=== PATIENT | male | born 1940 | race Caucasian/White ===

== ENCOUNTER → 2016-05-22 | Outpatient (CLI) | payer OTHER | LOC: BHFA 13:00 | PROVIDERS: ATTEND Internal Medicine Cardiovascular Disease | DX: L97.821 Non-pressure chronic ulcer of other part of left lower leg limited to breakdown of skin (principal) ==

== ENCOUNTER 2016-10-10 11:30 | Inpatient (IN) | payer OTHER ==
[2016-10-10] MEDS ORDERED: ACETAMINOPHEN 325 MG TAB PO PRN (12:07)
[2016-10-10] MEDS ORDERED: PROMETHAZINE HCL 25 MG/ML INJ IVP PRN (12:07)
[2016-10-10] MEDS ORDERED: ONDANSETRON 4 MG/2 ML VIAL IVP PRN (12:07)
[2016-10-10] MEDS ORDERED: HYDROmorphONE/DILAUDID 1 MG/ML SYR IVP PRN (12:07)
[2016-10-10] MEDS ORDERED: ONDANSETRON DISINTEGRATING 4 MG TAB PO PRN (12:07)
[2016-10-10] MEDS ORDERED: D5W 1/2 NS W/ 20 KCl/L 1,000 ML IV SCH (12:15)
--- NOTE | 2016-10-10 12:23 | PDGENHP ---
History and Physical - Chief Complaint Bilateral lower extremity cellulitis, left 2nd toe infection - History of Present Illness 68-year-old male well-known to me as I have been following him for lower extremity issues for some time. Briefly originally saw the patient about 10 months ago where he had an ulcer on the lateral portion of his left ankle. At that time he underwent skin grafting which was unsuccessful. I eventually get the wound to heal using long-term compression and Unna boot stockings. He then re-presented to my clinic approximately 2 weeks ago with some worsening cellulitis both of his lower extremities and a infection in his left 2nd toe. At that point time, I provided wound care and oral antibiotics to the patient here in the office any made some progress. I saw him last week in the toe looks about the same in the cellulitis had improved. Today in the clinic, he returns stating that the left 2nd toe is worse, the cellulitis is about the same. He denies having any systemic complaints including fevers or chills but does complain of significant bilateral lower extremity pain left greater than right. The pain is sharp, nonradiating, worse with pressure i.e. walking and better when he elevates both extremities. He states that it has also been difficult for him to ambulate given the pain and swelling in both of the extremities. His accompanies him today and states that he has had multiple episodes over the last week where he has fallen likely secondary to the fact that he has poor proprioception and issues with weight-bearing. History Information - Allergies/Home Medication List Allergies/Adverse Reactions: amoxicillin trihydrate [From Augmentin] Allergy (Intermediate, Verified 12:07) Itching guaifenesin [From Mucinex] Allergy (Intermediate, Verified 10/10/16 12:07) Vomiting potassium clavulanate [From Augmentin] Allergy (Intermediate, Verified 10/10/16 12:07) Itching Home Medications: Albuterol Hfa Anes Only [Proair Hfa Icu (*)] 2 puffs IH DAILY PRN 10/27/15 [ Last Taken 11/17/14] Alendronate Sodium [Fosamax 70 MG (*)] 70 mg PO PRYOR@0700 10/27/15 [Last Taken 02/01] Aspirin [Aspirin 81mg (*)] 81 mg PO DAILY 10/27/15 [Last Taken 11/30/15] Ergocalciferol [Vitamin D2 (*)] 50,000 unit PO PRYOR@0700 10/27/15 [Last Taken 02/01] Gabapentin [Neurontin 300 MG (*)] 600 mg PO TID 10/27/15 [Last Taken 12/02/15] Hydrochlorothiazide [HCTZ (*)] 12.5 mg PO DAILY 10/27/15 [Last Taken 12/02/15] Niacin ER [Niaspan 500 mg (*)] 500 mg PO HS 10/27/15 [Last Taken 11/30/15] [place]-3 Fatty Acids [Fish Oil 1000 mg (*)] 1,000 mg PO DAILY 10/27/15 [Last Taken 11/30/15] Ranitidine HCl [Zantac] 150 mg PO BID 10/27/15 [Last Taken 12/02/15 pepcid 20mg] Tamsulosin HCl [Flomax 0.4 MG (*)] 0.4 mg PO BID 10/27/15 [Last Taken 12/02/15] Terazosin HCl [Hytrin 2 MG (*)] 2 mg PO DAILY 10/27/15 [Last Taken 12/02/15] Venlafaxine Xr [Effexor Xr 75MG (*)] 150 mg PO DAILY 10/27/15 [Last Taken ] Verapamil ER [Calan SR/ER 120MG (*)] 120 mg PO DAILY 10/27/15 [Last Taken 12/01] I have personally reviewed and updated: family history, medical history, social history, surgical history - Past Medical History COPD Additional medical history: Chronic hypoxemic respiratory failure, vasculopath status post stenting - Surgical History Additional surgical history: Skin graft to the left lower extremity approximately 1 year ago which was unsuccessful - Social History Smoking Status: Current some day smoker Alcohol Use: None Drug Use: None Additional social history: Lives in [place] with his continues to smoke Review of Systems ROS: 10pt was reviewed & negative except for what was stated in HPI & below Physical Exam Constitutional: no apparent distress, appears nourished, not in pain Eyes: PERRL, anicteric sclera, EOMI Ears, Nose, Mouth, Throat: moist mucous membranes, hearing normal, ears appear normal, no oral mucosal ulcers Cardiovascular: regular rate and rhythym, no murmur, rub, or gallop, No edema Respiratory: no respiratory distress, no rales or rhonchi, clear to auscultation Gastrointestinal: normoactive bowel sounds, soft, non-tender abdomen, no palpable masses Skin: other (Bilateral lower extremity cellulitis, right greater than left. There is a small weeping portion on the dorsum of the right foot, there is also significant erythema and open portion on the left 2nd toe which is exquisitely tender both extremities are swollen right greater than left.) Musculoskeletal: no muscle tenderness, normal joint ROM Neurologic: AAOx3, sensation intact bilaterally, No weakness Psychiatric: interacting appropriately, not anxious, not encephalopathic, thought process linear Lymph, Heme, Immunologic: no cervical LAD, no supraclavicular LAD Assessment & Plan Assessment: 68-year-old male with bilateral lower extremity cellulitis and significant left 2nd toe infection, question osteomyelitis Plan: Given the fact that the patient has been on oral antibiotics for at least a week in the provide aggression of the infection seems to be increasing I will plan to admit him to the hospital for IV antibiotics and more intensive treatment. Given the appearance of the tone in the clinic today I am concerned that there is an underlying infection likely into the bone. I will plan to obtain further imaging including an MRI of that left foot to look for any further pathology. I have asked both the Medicine service and Infectious Disease services to consult and assist with care as the patient has underlying medical comorbidities which I feel are likely poorly managed on an outpatient basis by the patient and his . Anticipate that he will be here receiving IV antibiotics, if the toe fails to progress or gets worse I discussed with him that he may require an operation to remove it and possibly some additional portion of his forefoot if he should have infection in that area as well. All questions were answered, will plan to re-evaluate the patient later today.
--- NOTE | 2016-10-10 13:03 | WOCRNPDOC ---
WOCRN Advanced Assessment Note - Skin Integrity Problem, Advanced Assess Left Second Toe Dressing Type: Open to Air Exudate Amount: None Arlyn Wound Tissue: Erythema, Swollen, Hemosiderin Staining (mild ), Shiny, Taught, Xerotic, Hair Loss, Painful/Tender Arlyn Wound Swelling: Moderate Wound Bed Color: Yellow Wound Bed Constitution: Adhered Slough (100%) Site Measurement - Head-to-Toe Length X Width X Depth (cm): 1x1.2xslough. Proximal to wound on dorsal phalanx is a second wound which is also 100% slough in the shape of a t. this measures 1.2x1.2xslough. Skin Integrity Problem Comment: Will initiate autolytic debridement with iodosorb which will also address biofilm formation and bacterial load. Uncertain if patient has had RICHA. Negative stemmers sign. Patient denies intermittent claudation but states that he does complain of leg pain from time to time however this may be related to neuropathy. Right Lower Lateral Leg Scab Dressing Type: Open to Air Exudate Amount: None Wound Bed Constitution: Scab Site Measurement - Head-to-Toe Length X Width X Depth (cm): [id number] Skin Integrity Problem Comment: Appears to be a healing venous stasis ulcer. Right Dorsal Foot Dressing Type: Open to Air Exudate Amount: None Wound Bed Constitution: Loose Slough Site Measurement - Head-to-Toe Length X Width X Depth (cm): 2.5x1.8x0.1 Skin Integrity Problem Comment: Thin layer of slough that may expose a shallow open wound. Will initiate autolytic debridement. Wound care will round again at the end of the week.
[2016-10-10 15:12] LABS: % IMMATURE GRANULYOCYTES 0.3 % (0.0-1.1); ABSOLUTE IMMATURE GRANULOCYTES 0.02 10^3/uL (0.00-0.10); ADD DIFF? NO; ADD MORPH? NO; ADD SCAN? NO; ATYPICAL LYMPHOCYTE FLAG 10 (0-99); FRAGMENT RBC FLAG 0 (0-99); HEMATOCRIT 37.8 % (40.0-51.0); LEFT SHIFT FLG 0 (0-99); LIPEMIA HEMOLYSIS FLAG 80 (0-99); MEAN CELL HEMOGLOBIN 30.6 pg (27.9-34.1); MEAN CELL HEMOGLOBIN CONCENTR. 31.7 g/dL (32.4-36.7); MEAN CELL VOLUME 96.4 fL (81.5-99.8); MEAN PLATELET VOLUME 9.6 fL (8.7-11.7); PLATELET CLUMPS FLAG 10 (0-99); PLATELET COUNT 274 10^3/uL (150-400); RED BLOOD CELL COUNT 3.92 10^6/uL (4.40-6.38); RED CELL DISTRIBUTION WIDTH 14.8 % (11.5-15.2)
--- NOTE | 2016-10-10 15:13 | GCON ---
[f rep st] CONSULTATION INFECTIOUS DISEASE CONSULTATION DATE OF CONSULTATION: 10/10/2016 REFERRING PHYSICIAN: Kurt Newsome MD REASON FOR CONSULTATION: Bilateral lower extremity cellulitis with chronic wounds with possible ost eo. CHIEF COMPLAINT: Pain and redness involving both feet with chronic wounds. 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 Apparently, his history dates back to a year ago when he had a chronic nonhealing left lateral leg wound that required skin grafting, which finally healed. Apparently 2 weeks ago, he had worsen ing redness of both of his lower extremities and chronic wounds involving both his left 2nd toe and his right foot. He was placed on Bactrim orally as an outpatient in 1 week, and one later on there was some improvement in the cellulitis but ongoing issues regarding the wound. He continued on Bact rim, and this week when he was seen in followup he apparently had worsening redness of both of his f eet and increasing pain involving both his feet, as well. Patient denies fevers or shaking chills o maylin the past 2-3 weeks. He has had more pain with weightbearing and has had ongoing drainage from b oth the wounds involving his feet. Due to that, he was directly admitted to the hospital. There ar e no labs that are available at present. He had been wearing closed shoes during the start of this. After the wounds broke open and the redness developed in his bilateral feet, he did cut the tops o f his shoes off. REVIEW OF SYSTEMS: GENERAL: Denied any fever or shaking chills. HEAD: No headaches. EYES: No c hange in vision. ENT: No sore throat, difficulty swallowing, ear pain, or ear drainage. He is mckay ntulous and wears dentures. CARDIOVASCULAR: Denies any chest pain or rapid heart beat. RESPIRATOR Y: He denies any shortness of breath, cough, or sputum production. ABDOMEN: No nausea, vomiting, or abdominal pain. He does have chronic loose stools that he has had for over 10 years. He states he has about 2 bowel movements a day, nonbloody. : Denies any dysuria or hematuria. BACK: Wilton es any increasing back pain other than his baseline. MUSCULOSKELETAL: Denies any other joint pains or muscle aches. SKIN: As above. Rest of 10-point review of systems essentially negative except for above. PAST MEDICAL HISTORY: Significant for hypertension, COPD, coronary artery disease, dyslipidemia, pe ripheral arterial disease. 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 PAST SURGICAL HISTORY: Significant for angioplasty, aortic iliac endograft, L4-L5 spinal fusion, bi lateral total hip arthroplasties, CEA, left rotator cuff surgery, and recent skin grafting to the le ft lateral leg. SOCIAL HISTORY: He currently smokes a pack and a half over a day and a half. He does not drink any alcohol. He is . He is retired from the . He has had no recent immersion of his f oot in hot tubs or Jacuzzis or fresh water such as prince, streams, or lakes. FAMILY HISTORY: Significant for lung disease in his father. MEDICATIONS: As per MAY. PHYSICAL EXAMINATION: VITAL SIGNS: Temperature current 36.8, pulse is 66, respiratory rate is 20, blood pressure 152/81, saturation 94% on room air. GENERAL: Patient is resting in bed, in no acute respiratory distress. Awake, alert, and oriented x3. HEENT: Eyes without conjunctival injection. No petechiae noted. Oropharynx: He is edentulous. No oropharyngeal erythema or thrush noted. C ARDIOVASCULAR: S1, S2. Regular rate and rhythm. RESPIRATORY: Clear to auscultate bilaterally. N o rhonchi or rales appreciated. ABDOMEN: Positive bowel sounds in all 4 quadrants. Soft, nontende r, nondistended. No obvious organomegaly appreciated. EXTREMITIES: Lower extremity edema, particu larly right leg and right foot greater than left. He has some chronic venous stasis dermatitis mann ges noted, although these are mild bilaterally. SKIN: He has erythema predominantly present over t he left foot and left 2nd toe with a chronic wound over the dorsum of the 2nd toe extending into the dorsum of the foot. Mostly, it is dried up overlying slough, although there are some mild secretio ns that can be expressed very minimally, mostly serous at this point. He is excruciatingly tender t o palpation, especially over the dorsum of the foot and as you creep to the 2nd toe. No pain on pal pation of the plantar surface of that foot. Right foot with mild erythema over the dorsum of the fo ot with a chronic wound mostly again just slough dried up in nature. Again, pretty exquisitely tend er on palpation near this wound site. His feet are warm to touch bilaterally. LABORATORY DATA: No labs available. No cultures at this point. ASSESSMENT: 1. Bilateral feet cellulitic changes with chronic wounds to both feet and left 2nd toe, left foot g reater than right. 2. Tenia pedis bilaterally. PLAN: At this point in time, will start with basic labs, CBC, CMP, CRP, blood cultures x2 sets. I agree with an MRI. Would include both feet to evaluate further, especially given the tenderness and pain that he is having involving both feet. Evaluate for underlying abscess collections or osteomy elitis like changes. Will start broad-spectrum antimicrobials given the above presentation. No fou l-smelling chronic wounds with cellulitic component. Will start vancomycin and cefepime for now. W ill add antifungal topical therapy in between the web spaces, as well. Await MRI to further direct plan of care and additional intervention as necessary. Care discussed and coordinated with the surg ical team. Plan of care was discussed with the patient and the at the bedside. Thank you very much for the opportunity to care for your patient in consultation. /[id number]/MODL
[2016-10-10 15:35] LABS: ALANINE AMINOTRANSFERASE 24 IU/L (21-72); ALBUMIN 3.8 g/dL (3.5-5.0); ALKALINE PHOSPHATASE 94 IU/L (38-126); ANION GAP 11 mEq/L (8-16); ASPARTATE AMINOTRANSFERASE 20 IU/L (17-59); BILIRUBIN,TOTAL 0.4 mg/dL (0.1-1.4); BILIRUBIN-CONJUGATED 0.3 mg/dL (0.0-0.5); BILIRUBIN-UNCONJUGATED 0.1 mg/dL (0.0-1.1); C-REACTIVE PROTEIN 17.1 mg/L (<10.0); CALCIUM 9.1 mg/dL (8.5-10.4); CARBON DIOXIDE 22 mEq/l (22-31); CHLORIDE 112 mEq/L (97-110); CREATININE 1.2 mg/dL (0.7-1.3); GLOMERULAR FILTRATION RATE 59; GLUCOSE 86 mg/dL (70-100); POTASSIUM 4.3 mEq/L (3.5-5.2); SODIUM 145 mEq/L (134-144); TOTAL PROTEIN 6.6 g/dL (6.3-8.2)
[2016-10-10] MEDS: VANCOMYCIN HCL/NORMAL SALINE 250 ML IV SCH (15:48)
[2016-10-10] MEDS: HYDROCODONE/APAP 5/325 TAB PO PRN (15:54)
--- NOTE | 2016-10-10 15:55 | PDGENHP ---
History and Physical History and Physical: CONSULT NOTE HISTORY AND PHYSICAL CC: I AM ASKED BY DR. INDIGO LACKEY TO EVALUATE AND ASSIST IN THE CARE OF THIS PATIENT WHO HAS ONGOING INFECTIONS OF BOTH FEET AND LEGS WITH KNOWN PERIPHERAL VASCULAR DISEASE HISTORY: This patient has been here previously with peripheral vascular disease and soft tissue skin infections of the legs and feet. More recently has been followed by Dr. Cortes all other for ongoing ulcerations. There was a chronic left ankle ulcer that finally was healed after extensive outpatient care. More recently he has had pain swelling redness and ulcerations on the dorsal aspects of the right foot and left 2nd toe. He has been getting antibiotic as well as wound care for that and things are not progressing satisfactorily. He does not have fevers but does have some pain. He is not having any clear-cut ischemic symptoms. He enters the hospital this time for IV antibiotics and further diagnostic evaluation to look for deep infection that might require surgical or other interventions. ROS: A comprehensive 10 system review revealed no other significant findings PAST MEDICAL HISTORY: Extensive peripheral vascular disease including carotid, aorta with aneurysm, and both legs as well as coronary disease Status post carotid end arterectomy, and aortoiliac endovascular repair COPD with chronic hypoxemic respiratory failure Hypertension Avascular necrosis of left hip Bilateral total hip replacements Pulmonary embolism Kidney stones Depression Spine surgery Stable adrenal adenomas by CT scan FAMILY MEDICAL HISTORY: father had lung disease and of pneumonia at age 62 SOCIAL HISTORY: retired He lives at home with his who is here at the bedside she is surrogate decision maker No tobacco or alcohol MEDICATIONS: The patients list has been reconciled by our clinical pharmacist in the EMR. I have reviewed the list and ordered appropriate medicines. PHYSICAL EXAMINATION: Vital Signs: mild systolic hypertension otherwise stable without fever Examination: General: alert, oriented, good mentation, relaxed Skin: overall warm, dry, good color, no rash HEENT: normal Neck: no mass or jvd Resps: relaxed Lungs: clear breath sounds Heart: regular, no murmur Abdomen: soft, nondistended, nontender, +BS, no mass Lower Extremities: the right leg is edematous from above the knee down to the distal foot and there is some mild erythema on the dorsum of the foot as well as a full-thickness irregular ulceration without necrosis on the dorsum of the foot. This is draining a serous fluid and has a yellowish matter on the base. The left foot has some mild erythema and the 2nd toe is particularly erythematous and there is a ulcer on the dorsal aspect of that 2nd toe with dried crusted material, no signs of abscess or necrotic tissue. There are no ischemic changes to the feet per se but no palpable pulses. No Bleeding or bruising Neurologic: normal speech/language, normal seed packer, no focal weakness IV site: looks normal LABORATORY DATA: Pending RADIOLOGY STUDIES: there is apparently MRI scan of the left foot pending ASSESSMENT: -Ongoing ischemic ulcerations and soft tissue skin infections of both feet particularly remarkable at the left 2nd toe with some cellulitis of the right leg -Edema of the right leg suggests the possibility of DVT in that leg -Severe diffuse peripheral vascular disease status post interventions in the past as above -Mild hypertension -History of COPD and coronary artery disease, both currently stable PLANS: I will discuss with Infectious Disease antibiotic choices but I presume at this point will start with some vancomycin and something to cover g negatives I will review the MRI results and discussed with Dr. Newsome I will order a Doppler ulcer on the right leg to rule out DVT will follow renal function closely here He is on Lovenox for DVT prophylaxis He has a list of home medications which I will review and order appropriate medicines at this time and monitor closely I have reviewed the patient's past medical records as part of this assessment, including past hospital clinician records including physician notes, laboratory data, imaging
[2016-10-10] MEDS: CEFEPIME HCL 2 GM in D5W 100 ML IV SCH (17:12)
[2016-10-10] MEDS ORDERED: ALBUTEROL 60 PUFFS/8 GM MDI IH PRN (18:20)
[2016-10-10] MEDS ORDERED: GADOBUTROL 10 ML VIAL IVP ONE (18:20)
[2016-10-10] MEDS ORDERED: NON-FORMULARY NEW DRUG (Ranitidine Hcl [Zantac] 150 MG) PO SCH (21:00)
[2016-10-10] MEDS: NIACIN ER 500 MG TAB.ER PO SCH (21:15)
[2016-10-10] MEDS: TAMSULOSIN HCL 0.4 MG CAP PO SCH (21:15)
[2016-10-10] MEDS: buPROPion SR 150 MG TAB PO SCH (21:16)
[2016-10-10] MEDS: FAMOTIDINE 20 MG TAB PO SCH (21:16)
[2016-10-10] MEDS: GABAPENTIN 300 MG CAP PO SCH (21:16)
[2016-10-10] MEDS: QUEtiapine FUMARATE 25 MG TAB PO SCH (21:16)
[2016-10-11] MEDS: VANCOMYCIN HCL/NORMAL SALINE 250 ML IV SCH ×2 (04:07→15:55)
[2016-10-11] MEDS: CEFEPIME HCL 2 GM in D5W 100 ML IV SCH ×2 (05:15→15:55)
[2016-10-11] MEDS: GABAPENTIN 300 MG CAP PO SCH ×3 (09:01→21:24)
[2016-10-11] MEDS: FAMOTIDINE 20 MG TAB PO SCH ×2 (09:01→21:25)
[2016-10-11] MEDS: HYDROCODONE/APAP 5/325 TAB PO PRN (09:01)
[2016-10-11] MEDS: ENOXAPARIN 40 MG/0.4 ML SYR SC SCH (09:01)
[2016-10-11] MEDS: VENLAFAXINE XR 75 MG CAP PO SCH (09:01)
[2016-10-11] MEDS: HYDROCHLOROTHIAZIDE 12.5 MG CAP PO SCH (09:02)
[2016-10-11] MEDS: OMEGA-3 FATTY ACIDS 1,000 MG CAP PO SCH (09:02)
[2016-10-11] MEDS: VERAPAMIL ER 120 MG TAB PO SCH (09:02)
[2016-10-11] MEDS: ASPIRIN 81 MG CHEWABLE TAB PO SCH (09:02)
[2016-10-11] MEDS: TERAZOSIN HCL 2 MG CAP PO SCH (09:02)
[2016-10-11] MEDS: buPROPion SR 150 MG TAB PO SCH ×2 (09:03→21:25)
[2016-10-11] MEDS: TAMSULOSIN HCL 0.4 MG CAP PO SCH ×2 (09:03→21:24)
--- NOTE | 2016-10-11 09:28 | SOAPPROG ---
SOAP Progress Note Assessment/Plan: Assessment/Plan: 76 Y M B foot ulcerations, cellulitis. US neg for DVT. MRI report pending. Erythema improving. Appreciate wound care recs. Continue Vanc, cefipime. S: wants ibuprofen for pain. O: alert, nad, pleasant, smiling, making jokes. mmm, ncat no wob +pedal edema, R>L, extremely mild R leg erythema--residual cellulitis vs inflammation +L toe ulcer is dry. 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
--- NOTE | 2016-10-11 15:06 | WOCRNPDOC ---
WOCRN Advanced Assessment Note - Skin Integrity Problem, Advanced Assess Left Second Toe Dressing Type: Iodosorb Exudate Amount: None Skin Integrity Problem Comment: No change in wound. Will change orders for more occlusive/aggressive autolytic debridement dressing and round again either or sunday. Specialty supplies left in room. Right Dorsal Foot Dressing Type: Allevyn Life, Iodosorb Dressing Description: Clean/Dry, Intact Exudate Amount: None Skin Integrity Problem Comment: Not much change. Will alter orders and recheck tomorrow or Sunday.
[2016-10-11] MEDS ORDERED: FUROSEMIDE 40 MG/4 ML VIAL IVP ONE (15:16)
--- NOTE | 2016-10-11 15:18 | HOSPPROG ---
Hospitalist Progress Note Assessment/Plan: DIAGNOSES: -Ongoing ischemic ulcerations and soft tissue skin infections of both feet particularly remarkable at the left 2nd toe with some cellulitis of the right leg -Edema of the right leg suggests the possibility of DVT in that leg -Severe diffuse peripheral vascular disease status post interventions in the past as above -Mild hypertension -History of COPD and coronary artery disease, both currently stable Overall there is some improvement with decreased redness and discomfort in his right leg, though no changes so far in the appearance of his feet and his left 2nd toe. PLANS: - continue current antibiotics -Will review MRI findings with surgery, he may need partial amputation of 1st toe -Elevation of legs -Will give some Lasix to reduce edema -DVT prophylaxis SUBJECTIVE: Patient feels approximately the same as yesterday, some pain OBJECTIVE Vitals reviewed: stable without fever Exam: alert oriented skin warm dry color ok resps not labored lungs clear BSs heart regular abd soft nondistended nontender, bowel sounds present limbs the right leg is still fairly edematous, however there is less cellulitis ; the right foot still has the dorsal ulcer unchanged and they are still cellulitis of the dorsum of the foot; the left foot is still cellulitic and there is edema from the ankle down to the toes. The wound on the dorsum of the left 2nd toe is unchanged. There is still nothing that looks necrotic anywhere no palpable abscess iv site ok MRI of foot, I reviewed images, my impression: There are some marrow abnormalities in the distal tuft of the left 1st toe consistent with possible osteomyelitis, no sign of abscess Ultrasound of right leg done yesterday, my personal review of images: Normal compressibility and no visible thrombus so no evidence of DVT Objective: Vital Signs Temp Pulse Resp BP Pulse Ox 36.4 C 64 16 174/87 H 95 10/11/16 07:20 10/11/16 07:20 10/11/16 07:20 10/11/16 07:20 10/11/16 07:20 Laboratory Results 10/10/16 14:37 10/10/16 14:37 10/10/16 10/11/16 10/12/16 06:59 06:59 06:59 Output Total 750 375 Balance -750 -375 ICD10 Worksheet Patient Problems: Problems Problem Status Onset Acute leg pain Acute Hypertension Acute Anemia Chronic COPD (chronic obstructive pulmonary disease) Chronic 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
[2016-10-11] MEDS: IBUPROFEN 200 MG TAB PO PRN (15:54)
--- NOTE | 2016-10-11 16:07 | PCMIDPN ---
Assessment/Plan: Assessment: Left 2nd toe cellulitis with bilateral foot pain left greater than right. Suspect this is due to active soft tissue infection in the left 2nd toe. This is likely precipitated by poor arterial supply. On vancomycin and cefepime empirically. Will follow up with MRI results to see if patient will benefit from operative therapy. Regardless I am worried that the poor arterial supply will threaten the healing of any operative site the distal lower extremities. Plan: 1. Continue both vancomycin and cefepime empirically. 2. Follow up on MRI results. 3. Follow up with General surgery. Subjective: Patient continues to report that both his feet are painful. Left foot is more painful than right. Pain in the left foot is most concentrated on the dorsal aspect of the 2nd MTP area. No fevers or chills. Objective: Vancomycin # 1 Cefepime # 1 Vital Signs Temp Pulse Resp BP Pulse Ox 36.9 C 90 16 132/79 H 92 10/11/16 15:50 10/11/16 15:50 10/11/16 15:50 10/11/16 15:50 10/11/16 15:50 Laboratory Results 10/10/16 14:37 10/10/16 14:37 10/10/16 10/11/16 10/12/16 05:59 05:59 05:59 Output Total 750 500 Balance -750 -500 C-Reactive Protein 17.1 mg/L (<10.0) H 10/10/16 14:37 - Physical Exam General Appearance: WD/WN, alert, no apparent distress, non-toxic Respiratory: lungs clear, normal breath sounds, No respiratory distress Cardiac/Chest: regular rate, rhythm, No tachycardia Extremities: inflammation (Left dorsum 2nd MTP), erythema, No non-tender, No normal inspection, No necrosis Skin: normal color, warm/dry, No rash Neuro/Psych: alert, normal mood/affect, oriented x 3 ICD10 Worksheet Patient Problems: Problems Problem Status Onset Acute leg pain Acute Hypertension Acute Anemia Chronic COPD (chronic obstructive pulmonary disease) Chronic 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
[2016-10-11] MEDS: NIACIN ER 500 MG TAB.ER PO SCH (21:24)
[2016-10-11] MEDS: QUEtiapine FUMARATE 25 MG TAB PO SCH (21:25)
[2016-10-12] MEDS: VANCOMYCIN HCL/NORMAL SALINE 250 ML IV SCH ×2 (03:55→17:04)
[2016-10-12] MEDS: CEFEPIME HCL 2 GM in D5W 100 ML IV SCH ×2 (05:56→18:15)
[2016-10-12] MEDS: ENOXAPARIN 40 MG/0.4 ML SYR SC SCH (08:35)
[2016-10-12] MEDS: TAMSULOSIN HCL 0.4 MG CAP PO SCH ×2 (08:35→20:59)
[2016-10-12] MEDS: FAMOTIDINE 20 MG TAB PO SCH ×2 (08:36→20:59)
[2016-10-12] MEDS: TERAZOSIN HCL 2 MG CAP PO SCH (08:36)
[2016-10-12] MEDS: OMEGA-3 FATTY ACIDS 1,000 MG CAP PO SCH (08:37)
[2016-10-12] MEDS: GABAPENTIN 300 MG CAP PO SCH ×3 (08:37→20:58)
[2016-10-12] MEDS: VERAPAMIL ER 120 MG TAB PO SCH (08:38)
[2016-10-12] MEDS: buPROPion SR 150 MG TAB PO SCH ×2 (08:38→20:59)
[2016-10-12] MEDS: HYDROCHLOROTHIAZIDE 12.5 MG CAP PO SCH (08:38)
[2016-10-12] MEDS: ASPIRIN 81 MG CHEWABLE TAB PO SCH (08:39)
[2016-10-12] MEDS: VENLAFAXINE XR 75 MG CAP PO SCH (08:39)
--- NOTE | 2016-10-12 09:30 | WOCRNPDOC ---
WOCRN Advanced Assessment Note - Skin Integrity Problem, Advanced Assess Left Second Toe Dressing Type: Honey Sheet Dressing Description: Clean/Dry, Intact Integumentary Issue Intervention: Dressing Changed Arlyn Wound Tissue: Erythema (mild), Macerated Wound Bed Color: Yellow Wound Bed Constitution: Adhered Slough Skin Integrity Problem Comment: Autolytic debridement is working and slough is slowly loosening. Dressing changed as honey sheet was over some intact skin. Jojo RN's were in room for care and dressing change. Cleaned with ns and gauze. Puracyn gel applied to wound bed and then it was covered with honey HCS. Wound care will check in tomorrow. Right Lower Lateral Leg Scab Site Measurement - Head-to-Toe Length X Width X Depth (cm): 0.2x0.3x0.1 Skin Integrity Problem Comment: Mostly healed. May leave open to air. Right Dorsal Foot Dressing Type: Honey Sheet Wound Bed Constitution: Granulation Tissue Skin Integrity Problem Comment: Slough is slowly coming off revealing 50% granulation and 50% slough remaining. Will continue with autolytic debridement. Dressing changed as honey sheet was over some intact skin. Julienne and Eloisa RN's were in room for care and dressing change. Cleaned with ns and gauze. Puracyn gel applied to wound bed and then it was covered with honey HCS.
--- NOTE | 2016-10-12 09:47 | HOSPPROG ---
Hospitalist Progress Note Assessment/Plan: DIAGNOSES: -Ongoing ischemic ulcerations and soft tissue skin infections of both feet particularly remarkable at the left 2nd toe with some cellulitis of the right leg - question osteomyelitis of right 1st toe based on MRI -Acute on chronic edema of both legs -Severe diffuse peripheral vascular disease status post interventions in the past -Mild hypertension -History of COPD and coronary artery disease, both currently stable again today some improvement in the appearance of his legs and feet but still with some cellulitis and open wounds. a PLANS: -continue current antibiotics -Will review MRI findings with surgery, he may need partial amputation of 1st toe -Elevation of legs - further Lasix today Lasix to reduce edema -DVT prophylaxis SUBJECTIVE: Patient notes slightly less pain today No chills or fevers OBJECTIVE Vitals reviewed: stable without fever Exam: alert oriented skin warm dry color ok resps not labored lungs clear BSs heart regular abd soft nondistended nontender, bowel sounds present limbs slight decrease in edema in both legs and feet today but edema still present. 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
[2016-10-12] MEDS: IBUPROFEN 200 MG TAB PO PRN (15:00)
--- NOTE | 2016-10-12 15:08 | PCMIDPN ---
Assessment/Plan: Assessment: Left 2nd toe cellulitis with bilateral foot pain left greater than right. Suspect this is due to active soft tissue infection in the left 2nd toe. This is likely precipitated by poor arterial supply. On vancomycin and cefepime empirically. While MRI results do show some abnormality in the proximal phalanx of the great toe and some of the distal phalanx of the 2nd toe, I am not sure this corresponds to the area of inflammation well. I think this is all soft tissue cellulitis precipitated by poor microvascular arterial disease. We will continue a short course of empiric antibiotic coverage and transition oral antibiotics in the next day or 2. Plan: 1. Continue both vancomycin and cefepime empirically. 2. Follow up with General surgery. 10/12/16 17:59 Subjective: Patient is resting comfortably in his hospital bed. He states he continues to have chronic foot pain. No fevers or chills. Tolerating antibiotics without issue Objective: Vancomycin # 2 Cefepime # 2 Vital Signs Temp Pulse Resp BP Pulse Ox 36.9 C 71 16 112/72 92 10/12/16 11:10 10/12/16 11:10 10/12/16 11:10 10/12/16 11:10 10/12/16 11:10 Laboratory Results 10/10/16 14:37 10/10/16 14:37 10/11/16 10/12/16 10/13/16 05:59 05:59 05:59 Intake Total 240 Output Total 750 2020 400 Balance -750 -2019 -160 C-Reactive Protein 17.1 mg/L (<10.0) H 10/10/16 14:37 - Physical Exam General Appearance: WD/WN, alert, no apparent distress, non-toxic Respiratory: lungs clear, normal breath sounds, No respiratory distress Cardiac/Chest: regular rate, rhythm, No tachycardia Extremities: inflammation (Left greater than right), erythema (Dorsum of left foot), No non-tender, No normal inspection Skin: normal color, warm/dry, No rash Neuro/Psych: alert, normal mood/affect, oriented x 3 ICD10 Worksheet Patient Problems: Problems Problem Status Onset Acute leg pain Acute Hypertension Acute Anemia Chronic COPD (chronic obstructive pulmonary disease) Chronic 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
--- NOTE | 2016-10-12 15:18 | SOAPPROG ---
SOAP Progress Note Assessment/Plan: Assessment/Plan: 76yo M c BLE cellulitis, L second toe infection - Cristina is making clinical progress, states that the pain is better and the erythema is improved. I agree with ID in that he has poor inflow (and continues to smoke) which would make healing an issue. Given his improvement, will plan to hold off on surgical intervention for the time being. Will cont to monitor but is making excellent progress with conservative management currently. 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
[2016-10-12] MEDS: HYDROCODONE/APAP 5/325 TAB PO PRN (15:35)
[2016-10-12] MEDS ORDERED: VANCOMYCIN 750 MG in D5W 150 ML IV SCH (18:30)
[2016-10-12] MEDS: NIACIN ER 500 MG TAB.ER PO SCH (20:58)
[2016-10-12] MEDS: QUEtiapine FUMARATE 25 MG TAB PO SCH (20:59)
[2016-10-13] MEDS: CEFEPIME HCL 2 GM in D5W 100 ML IV SCH ×3 (05:04→16:33)
[2016-10-13] MEDS: VANCOMYCIN 750 MG in D5W 150 ML IV SCH ×2 (06:12→17:32)
--- NOTE | 2016-10-13 09:27 | HOSPPROG ---
Hospitalist Progress Note Assessment/Plan: DIAGNOSES: -Ongoing ischemic ulcerations and soft tissue skin infections of both feet particularly remarkable at the left 2nd toe with some cellulitis of the right leg - question of possible osteomyelitis of right 1st toe based on MRI; -Acute on chronic edema of both legs -Severe diffuse peripheral vascular disease status post interventions in the past -Mild hypertension -History of COPD and coronary artery disease, both currently stable Overall continues to make reasonably good progress in treating cellulitis. I have reviewed the notes of Infectious Disease and surgery. The current plan is to continue conservative therapy which I would agree with given his risks. There is uncertainty about the possibility of any osteomyelitis in the 1st toe. It is in the distal tuft if it exists, and I think that if there is osteomyelitis this will be come more clinically apparent to us over time in the way of failure to resolve the infection clinically. As he is overall improving clinically at this time it is reasonable to continue antibiotic therapy and follow closely. PLANS: -continue current antibiotic -Elevation of legs - 1 more dose of Lasix today to reduce edema -DVT prophylaxis SUBJECTIVE: very little pain at this time No chills sweats or other fever symptoms OBJECTIVE Vitals reviewed: stable without fever Exam: alert oriented skin warm dry color ok resps not labored lungs clear BSs heart regular abd soft nondistended nontender, bowel sounds present limbs little change overall in the appearance of his feet and legs and the left toes from yesterday, still with some cellulitis microbiology: Cultures all negative to date Objective: Vital Signs Temp Pulse Resp BP Pulse Ox 36.8 C 84 18 157/108 H 93 10/13/16 08:00 10/13/16 08:00 10/13/16 08:00 10/13/16 08:00 10/13/16 08:00 Laboratory Results 10/10/16 14:37 10/10/16 14:37 10/12/16 10/13/16 10/14/16 06:59 06:59 06:59 Intake Total 1650 Output Total 2019 1559 Balance -2019 ICD10 Worksheet Patient Problems: Problems Problem Status Onset Acute leg pain Acute Hypertension Acute Anemia Chronic COPD (chronic obstructive pulmonary disease) Chronic 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
[2016-10-13] MEDS: ENOXAPARIN 40 MG/0.4 ML SYR SC SCH (10:58)
[2016-10-13] MEDS: GABAPENTIN 300 MG CAP PO SCH ×3 (10:58→21:39)
[2016-10-13] MEDS: buPROPion SR 150 MG TAB PO SCH ×2 (10:58→21:39)
[2016-10-13] MEDS: OMEGA-3 FATTY ACIDS 1,000 MG CAP PO SCH (10:59)
[2016-10-13] MEDS: FAMOTIDINE 20 MG TAB PO SCH ×2 (10:59→21:38)
[2016-10-13] MEDS: TAMSULOSIN HCL 0.4 MG CAP PO SCH ×2 (10:59→21:39)
[2016-10-13] MEDS: ASPIRIN 81 MG CHEWABLE TAB PO SCH (11:00)
[2016-10-13] MEDS: VENLAFAXINE XR 75 MG CAP PO SCH (11:00)
[2016-10-13] MEDS: TERAZOSIN HCL 2 MG CAP PO SCH (11:01)
[2016-10-13] MEDS: HYDROCHLOROTHIAZIDE 12.5 MG CAP PO SCH (11:01)
[2016-10-13] MEDS: VERAPAMIL ER 120 MG TAB PO SCH (11:01)
--- NOTE | 2016-10-13 11:35 | WOCRNPDOC ---
WOCRN Advanced Assessment Note - Skin Integrity Problem, Advanced Assess Left Second Toe Dressing Type: Honey Sheet Dressing Description: Clean/Dry, Intact Exudate Amount: None Integumentary Issue Intervention: Dressing Changed Go Wound Tissue: Erythema (minimal go woun) Wound Bed Color: Red, Yellow Wound Bed Constitution: Granulation Tissue (20%), Adhered Slough (80%) Wound Edges: Attached Site Measurement - Head-to-Toe Length X Width X Depth (cm): dimensions unchanged Skin Integrity Problem Comment: Autolytic debridement is working well. Slough is slowly coming off revealing robust granulation underneath. Cleaned with ns and gauze. Puracyn wound gel applied to wound bed and covered with honey HCS. Secured with tape. Discussed need for follow up care at outpatient wound healing center. Questions about wound/plan of care answered. Patient and in room. Wound care will follow up next week. Right Dorsal Foot Dressing Type: Honey Sheet Dressing Description: Clean/Dry, Intact Integumentary Issue Intervention: Dressing Changed Go Wound Tissue: Macerated Go Wound Swelling: None Wound Bed Color: Red, Yellow Wound Bed Constitution: Granulation Tissue (60%), Adhered Slough (40%) Wound Edges: Epithelizing Skin Integrity Problem Comment: Autolytic debridement is working well. Slough is slowly coming off revealing granulation. Cleaned with ns and gauze. Puracyn wound gel applied to wound bed and covered with honey HCS. Secured with tape. Discussed need for follow up care at outpatient wound healing center. Questions about wound/plan of care answered. Patient and in room. Wound care will follow up next week.
[2016-10-13] MEDS: IBUPROFEN 200 MG TAB PO PRN (11:53)
--- NOTE | 2016-10-13 13:27 | SOAPPROG ---
SOAP Progress Note Assessment/Plan: Assessment/Plan: 76yo M c BLE cellulitis, L second toe infection - L second toe continues to make progress and does appear to be viable. Discussed with Dr Gipson yesterday that the issues of wound healing given his poor inflow may supercede the need for amputation, although clinically the toe is making progress and both lower legs look better. Will discuss with ID lenght of stay but not planning surgical intervention, and will keep in house as long as needed for IV antibiotics. 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
--- NOTE | 2016-10-13 15:29 | PCMIDPN ---
Assessment/Plan: Assessment/Plan: * Left foot cellulitis with underlying vascular disease: Clinically improved with vancomycin and cefepime. Review of prior cultures shows most recent isolate of MSSA although from last year. Will continue vancomycin cefepime until tomorrow with plans to transition to oral antibiotics thereafter, likely doxycycline 100 mg twice daily. 10/13/16 15:26 Subjective: Patient with less foot erythema. Still with tenderness. Objective: Vital Signs Temp Pulse Resp BP Pulse Ox 36.6 C 93 20 104/64 92 10/13/16 14:01 10/13/16 14:01 10/13/16 14:01 10/13/16 14:01 10/13/16 14:01 Laboratory Results 10/10/16 14:37 10/10/16 14:37 10/12/16 10/13/16 10/14/16 05:59 05:59 05:59 Intake Total 1650 Output Total 2020 1560 400 Balance -2020 90 -400 C-Reactive Protein 17.1 mg/L (<10.0) H 10/10/16 14:37 Vancomycin # 3 cefepime # 3 Blood cultures x2 no growth - Physical Exam General Appearance: alert, no apparent distress EENT: pharynx normal, No scleral icterus Extremities: inflammation ( left foot with decreasing erythema and dry scabbing over distal dorsal aspect at base of 2nd toe; tender to palpation without fluctuance) Abdomen: non-tender, No distended ICD10 Worksheet Patient Problems: Problems Problem Status Onset Acute leg pain Acute Hypertension Acute Anemia Chronic COPD (chronic obstructive pulmonary disease) Chronic 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
[2016-10-13] MEDS: NIACIN ER 500 MG TAB.ER PO SCH (21:39)
[2016-10-13] MEDS: QUEtiapine FUMARATE 25 MG TAB PO SCH (21:39)
[2016-10-14] MEDS: CEFEPIME HCL 2 GM in D5W 100 ML IV SCH (04:14)
[2016-10-14] MEDS: VANCOMYCIN 750 MG in D5W 150 ML IV SCH (04:55)
[2016-10-14 07:41] VITALS: BP 136/83; PULSE 71; RESP 16; TEMP 97.9; O2SAT 97
--- NOTE | 2016-10-14 09:33 | SOAPPROG ---
SOAP Progress Note Assessment/Plan: Assessment: 76 yo with cellulitus right 3rd toe Improved with antibiotics I am still concerned this will develop into osteo as the ulcer is over the joint and cartilage is palpable Continue abx plan per ID Has peripheral vascular disease so wound healing after amputation may be problematic DC when medically appropriate FU with Dr. Newsome in 1 week S: Feeling better O: Erythema markedly improved from when I evaluated him in the office on Sunday. White eschar over joint on 3rd toe w cartilage palpable Cracks over dorsum of foot Edema improved pulses not palpable Sitting in chair, appears well Plan: 10/14/16 09:30 Objective: Vital Signs Temp Pulse Resp BP Pulse Ox 36.6 C 71 16 136/83 H 97 10/14/16 07:36 10/14/16 07:36 10/14/16 07:36 10/14/16 07:36 10/14/16 07:36 Laboratory Results 10/10/16 14:37 10/10/16 14:37 10/13/16 10/14/16 10/15/16 05:59 05:59 05:59 Intake Total 1650 442 Output Total 1560 2195 350 Balance 90 -5723 -350 Physical Exam - Physical Exam General Appearance: WD/WN, alert, no apparent distress EENT: PERRL/EOMI, normal ENT inspection, No scleral icterus (R), No scleral icterus (L), No hearing deficit Respiratory: chest non-tender, No accessory muscle use Cardiac/Chest: other (regular rate) Extremities: other (does not have full range of motion of toes) Neuro/Psych: alert, normal mood/affect, No no motor/sensory deficits ICD10 Worksheet Patient Problems: Problems Problem Status Onset Acute leg pain Acute Hypertension Acute Anemia Chronic COPD (chronic obstructive pulmonary disease) Chronic 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
[2016-10-14] MEDS: ASPIRIN 81 MG CHEWABLE TAB PO SCH (10:09)
[2016-10-14] MEDS: ENOXAPARIN 40 MG/0.4 ML SYR SC SCH (10:10)
[2016-10-14] MEDS: buPROPion SR 150 MG TAB PO SCH (10:10)
[2016-10-14] MEDS: VERAPAMIL ER 120 MG TAB PO SCH (10:11)
[2016-10-14] MEDS: FAMOTIDINE 20 MG TAB PO SCH (10:11)
[2016-10-14] MEDS: TAMSULOSIN HCL 0.4 MG CAP PO SCH (10:12)
[2016-10-14] MEDS: HYDROCHLOROTHIAZIDE 12.5 MG CAP PO SCH (10:12)
[2016-10-14] MEDS: TERAZOSIN HCL 2 MG CAP PO SCH (10:12)
[2016-10-14] MEDS: VENLAFAXINE XR 75 MG CAP PO SCH (10:12)
[2016-10-14] MEDS: OMEGA-3 FATTY ACIDS 1,000 MG CAP PO SCH (10:13)
[2016-10-14] MEDS: GABAPENTIN 300 MG CAP PO SCH ×2 (10:13→16:03)
--- NOTE | 2016-10-14 14:01 | PDIAF ---
- Diagnosis Diagnosis: cellulitis Code Status: Full Code - Medication Management Discharge Medications: Medications to Continue on Transfer Alendronate Sodium [Fosamax 70 MG (*)] 70 mg PO PRYOR@0700 10/27/15 [Last Taken ] Aspirin [Aspirin 81mg (*)] 81 mg PO DAILY 10/27/15 [Last Taken 10/10/16] Ergocalciferol [Vitamin D2 (*)] 50,000 unit PO PRYOR@0700 10/27/15 [Last Taken ] Gabapentin [Neurontin 300 MG (*)] 600 mg PO TID 10/27/15 [Last Taken 10/10/16] Hydrochlorothiazide [HCTZ (*)] 12.5 mg PO DAILY 10/27/15 [Last Taken 10/10/16] Niacin ER [Niaspan 500 mg (*)] 500 mg PO HS 10/27/15 [Last Taken 10/09/16] Delta-3 Fatty Acids [Fish Oil 1000 mg (*)] 1,000 mg PO DAILY 10/27/15 [Last Taken 10/10/16] Ranitidine HCl [Zantac] 150 mg PO BID 10/27/15 [Last Taken 10/10/16] Tamsulosin HCl [Flomax 0.4 MG (*)] 0.4 mg PO BID 10/27/15 [Last Taken 10/10/16] Terazosin HCl [Hytrin 2 MG (*)] 2 mg PO DAILY 10/27/15 [Last Taken 10/10/16] Venlafaxine Xr [Effexor Xr 75MG (*)] 150 mg PO DAILY 10/27/15 [Last Taken ] Verapamil ER [Calan SR/ER 120MG (*)] 120 mg PO DAILY 10/27/15 [Last Taken 10/10] Acetaminophen [Tylenol 325mg (*)] 650 mg PO Q4 PRN #0 tab 12/06/15 [Last Taken 10/10/16] Albuterol [Proventil Inhaler HFA (*)] 1 - 2 puffs IH DAILY PRN 10/10/16 [Last Taken Unknown] QUEtiapine FUMARATE [Seroquel 25 mg (*)] 25 mg PO HS 10/10/16 [Last Taken 07/24/ 17] buPROPion SR [Wellbutrin 150mg SR (*)] 150 mg PO BID 10/10/16 [Last Taken ] Doxycycline Monohydrate 100 mg PO BID #14 capsule 10/14/16 [Last Taken Unknown] Manager Custom Antibiotics: doxycycline x 7 days Discharge Medications: Refer to the Discharge Home Medication list for PRN reason. - Orders Services needed: Home Care, Registered Nurse, Physical Therapy Home Care Face to Face: I certify that this patient was under my care and that I had the required [id number] encounter meeting the encounter requirements on the discharge day. My findings support the fact that the patient is homebound as defined in CMS Chapter 7 Medicare Benefits Manual 30.1.1, The condition of the patient is such that there exists a normal inability to leave home and consequently, leaving home would require a considerable and taxing effort. Oxygen: resume home O2 - 2LPM via [place] Diet Recommendation: cardiac -low fat low salt Diet Texture: Regular Texture Diet Wound Care Instructions: see wound care directions on DC instructions Activity/Weight Bearing Restrictions: ambulate with walker or assistance - Follow Up Care Current Providers and Referrals: Viv Crowell MD [Primary Care Provider] - follow up in 1 week Mason Long MD [Medical Doctor] - follow up in 1 week Kurt Newsome MD [Medical Doctor] - follow up in 1 week
--- NOTE | 2016-10-14 14:22 | PCMIDPN ---
Assessment/Plan: Assessment/Plan: * Left foot cellulitis with underlying vascular disease: Clinically improved with vancomycin and cefepime. Will transition to doxycycline 100 mg po bid for another 7 days of therapy. Primary issue in resolving left foot will be vascular supply. Will arrange follow-up in our office in approximately 10 days. Side effects of doxycycline including photosensitivity, esophagitis and need to avoid concomitant Ca 2+ intake discussed. 10/14/16 14:19 Subjective: Patient without complaints. Foot feels better. Objective: Vital Signs Temp Pulse Resp BP Pulse Ox 36.6 C 71 16 136/83 H 97 10/14/16 07:36 10/14/16 07:36 10/14/16 07:36 10/14/16 10:12 10/14/16 07:36 Laboratory Results 10/10/16 14:37 10/10/16 14:37 10/13/16 10/14/16 10/15/16 05:59 05:59 05:59 Intake Total 1650 442 Output Total 1560 2195 350 Balance 90 -1753 -350 C-Reactive Protein 17.1 mg/L (<10.0) H 10/10/16 14:37 Vancomycin #4 Cefepime #4 Blood cultures X 2 no growth - Physical Exam General Appearance: alert, no apparent distress Extremities: inflammation (left foot with tray drier appearance; no erythema or drainage; ulceration over second toe without change; right foot ulceration without change; no erythema) ICD10 Worksheet Patient Problems: Problems Problem Status Onset Acute leg pain Acute Hypertension Acute Anemia Chronic COPD (chronic obstructive pulmonary disease) Chronic 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
[2016-10-15] MEDS ORDERED: ALENDRONATE SODIUM 70 MG TAB PO SCH (07:00)
[2016-10-15] MEDS ORDERED: ERGOCALCIFEROL 50,000 I.UNIT CAP PO SCH (07:00)
== END 2016-10-14 16:10 | disposition home health service (06) | DRG 603 ==
LOC: F3E 12:01 → OBSVTOIN 10-11 11:46
PROVIDERS: ADMIT Surgery; ATTEND Surgery
DX: L03.032 Cellulitis of left toe (principal); L03.115 Cellulitis of right lower limb; L03.116 Cellulitis of left lower limb; I73.9 Peripheral vascular disease, unspecified; J44.9 Chronic obstructive pulmonary disease, unspecified; B35.3 Tinea pedis; J96.11 Chronic respiratory failure with hypoxia; I10 Essential (primary) hypertension; I25.10 Atherosclerotic heart disease of native coronary artery without angina pectoris; Z98.1 Arthrodesis status; Z87.442 Personal history of urinary calculi; F17.210 Nicotine dependence, cigarettes, uncomplicated; Z96.643 Presence of artificial hip joint, bilateral
CPT/HCPCS: 97116-GP; 97162-GP; 97165-GO; 97535-GO; A9585; G0378; G0379; G8978-GP-CK; G8979-GP-CI; G8987-GO-CK; G8988-GO-CI; J0692; J1650; J1940; J3370

== ENCOUNTER 2016-11-27 05:45 | Day surgery (SDC) | payer OTHER ==
--- NOTE | 2016-11-25 06:43 | PDGENHP ---
History and Physical - Chief Complaint Left second toe infection - History of Present Illness Cristina is a 76-year-old male with longstanding bilateral lower extremity cellulitis. The majority of which has improved, the left 2nd toe remains threatened with a large ulcer on the dorsal aspect. It does not appear to be responding to either IV oral antibiotic therapy and is likely precipitating persistent cellulitis of the left foot. History Information - Allergies/Home Medication List Allergies/Adverse Reactions: amoxicillin trihydrate [From Augmentin] Allergy (Intermediate, Verified 17:51) Itching guaifenesin [From Mucinex] Allergy (Intermediate, Verified 11/24/16 17:51) Vomiting potassium clavulanate [From Augmentin] Allergy (Intermediate, Verified 11/24/16 17:51) Itching Home Medications: Alendronate Sodium [Fosamax 70 MG (*)] 70 mg PO PRYOR@0700 10/27/15 [Last Taken ] Aspirin [Aspirin 81mg (*)] 81 mg PO DAILY 10/27/15 [Last Taken 10/10/16] Ergocalciferol [Vitamin D2 (*)] 50,000 unit PO PRYOR@0700 10/27/15 [Last Taken ] Gabapentin [Neurontin 300 MG (*)] 600 mg PO TID 10/27/15 [Last Taken 10/10/16] Hydrochlorothiazide [HCTZ (*)] 12.5 mg PO DAILY 10/27/15 [Last Taken 10/10/16] Niacin ER [Niaspan 500 mg (*)] 500 mg PO HS 10/27/15 [Last Taken 10/09/16] [place]ien[place]-3 Fatty Acids [Fish Oil 1000 mg (*)] 1,000 mg PO DAILY 10/27/15 [Last Taken 10/10/16] Ranitidine HCl [Zantac] 150 mg PO BID 10/27/15 [Last Taken 10/10/16] Tamsulosin HCl [Flomax 0.4 MG (*)] 0.4 mg PO BID 10/27/15 [Last Taken 10/10/16] Venlafaxine Xr [Effexor Xr 75MG (*)] 150 mg PO DAILY 10/27/15 [Last Taken ] Verapamil ER [Calan SR/ER 120MG (*)] 120 mg PO DAILY 10/27/15 [Last Taken 10/10] Albuterol [Proventil Inhaler HFA (*)] 1 - 2 puffs IH DAILY PRN 10/10/16 [Last Taken Unknown] buPROPion SR [Wellbutrin 150mg SR (*)] 150 mg PO BID 10/10/16 [Last Taken ] IRON 11/24/16 [Last Taken Unknown] I have personally reviewed and updated: medical history, social history, surgical history - Past Medical History COPD Additional medical history: Chronic hypoxemic respiratory failure, vasculopath status post stenting - Surgical History Additional surgical history: Skin graft to the left lower extremity approximately 1 year ago which was unsuccessful - Social History Smoking Status: Current some day smoker Additional social history: Lives in [place] with his continues to smoke Review of Systems Review of Systems: ROS: 2-9 pt reviewed & negative except for what was stated in HPI & below Physical Exam Physical Exam: Constitutional: no apparent distress, appears nourished, not in pain Eyes: PERRL, anicteric sclera, EOMI Ears, Nose, Mouth, Throat: moist mucous membranes, hearing normal, ears appear normal, no oral mucosal ulcers Cardiovascular: regular rate and rhythym, no murmur, rub, or gallop, No edema Musculoskeletal: other (Left 2nd toe with large dorsal aspect ulcer, painful) Assessment & Plan Assessment: Left second toe infection Plan: After exhausting our efforts at both IV and oral antibiotics it appears that the toe is nonviable. After discussing the risks benefits and alternatives we will plan to proceed with left 2nd toe amputation. I did discuss with care that he may need further amputation of his foot in the future should the cellulitis persist. Risks benefits and alternatives discussed
[2016-11-27] MEDS ORDERED: CLINDAMYCIN 900 MG/DEXTROSE 50 ML IV ONE (05:59)
--- NOTE | 2016-11-27 06:34 | PDHPUP ---
History & Physical Update H&P update statement: This history and physical update is based on an assessment of the patient which was completed after admission or registration (within 24 hours), but prior to the surgery/procedure. H&P update: H&P reviewed & patient examined, no change in patient's condition since H&P completed
[2016-11-27 06:47] VITALS: PULSE 69
[2016-11-27] MEDS ORDERED: LR 1,000 ML IV ONE (06:47)
--- NOTE | 2016-11-27 06:59 | PDANEPAE ---
ANE History of Present Illness here for l toe amputation for osteo ANE Past Medical History - Cardiovascular History Hx Hypertension: Yes Hx Arrhythmias: No Hx Coronary Artery / Peripheral Vascular Disease: Yes Hx CHF / Valvular Disease: No Hx Palpitations: No Cardiovascular History Comment: SILENT AL-1993 - Pulmonary History Hx COPD: Yes Hx Asthma/Reactive Airway Disease: No Hx Recent Upper Respiratory Infection: No Hx Oxygen in Use at Home: Yes O2 in Use at Home (L/minute): 2L NC at night -sleeping Hx Sleep Apnea: No Sleep Apnea Screening Result - Last Documented: Positive Pulmonary History Comment: [employer]. 2013 post surgical PE. O2 AT [facility] NAPS - Neurologic History Hx Cerebrovascular Accident: Yes Hx Seizures: No Hx Dementia: No Neurologic History Comment: HX OF FUSION LUMBAR. STROKE - 1993 NO RESIDUAL PROB. - Endocrine History Hx Diabetes: No - Renal History Hx Renal Disorders: Yes Renal History Comment: HX OF KIDNEY STONES WITH LITHOTRIPSY. - Liver History Hx Hepatic Disorders: No - Neurological & Psychiatric Hx Hx Neurological and Psychiatric Disorders: Yes Neurological / Psychiatric History Comment: DEPRESSION-meds. - Cancer History Hx Cancer: No - Congenital Disorder History Hx Congenital Disorders: No - GI History GERD: no Hx Gastrointestinal Disorders: Yes Gastrointestinal History Comment: HEMORRHOIDS. REFLUX. - Other Health History Other Health History: cellulitis L foot-2nd toe. Mild bilateral hearing loss. Upper&lower dentures. - Chronic Pain History Chronic Pain: Yes (LOWER BACK AND HIP) - Surgical History Prior Surgeries: 10/29/15 i&d left leg ulcer with Marthaller. L HIP REPLACEMENT 11/2013. CAROTID ENDARTERECTOMY -2003. LAMINECTOMY 02/2011 L3-5 FUSION. LITHOTRIPSY 11/2009. 06/30-R SERGEY, revision 24 hours later. Bilateral cataract surg-2007. ANE Review of Systems Review of systems is: negative Review of Systems: - Exercise capacity Exercise capacity: <4 METS METS (RN): 4 METS ANE Patient History - Allergies Allergies/Adverse Reactions: amoxicillin trihydrate [From Augmentin] Allergy (Intermediate, Verified 17:51) Itching guaifenesin [From Mucinex] Allergy (Intermediate, Verified 11/24/16 17:51) Vomiting potassium clavulanate [From Augmentin] Allergy (Intermediate, Verified 11/24/16 17:51) Itching - Home Medications Home Medications: Alendronate Sodium [Fosamax 70 MG (*)] 70 mg PO PRYOR@0700 10/27/15 [Last Taken 01/02] Aspirin [Aspirin 81mg (*)] 81 mg PO DAILY 10/27/15 [Last Taken 11/25/16] Ergocalciferol [Vitamin D2 (*)] 50,000 unit PO PRYOR@0700 10/27/15 [Last Taken 01/02] Gabapentin [Neurontin 300 MG (*)] 600 mg PO TID 10/27/15 [Last Taken 11/27/16 04 :00] Hydrochlorothiazide [HCTZ (*)] 12.5 mg PO DAILY 10/27/15 [Last Taken 11/25/16] Niacin ER [Niaspan 500 mg (*)] 500 mg PO HS 10/27/15 [Last Taken 11/27/16 04:00] [place]-3 Fatty Acids [Fish Oil 1000 mg (*)] 1,000 mg PO DAILY 10/27/15 [Last Taken 11/27/16 04:00] Ranitidine HCl [Zantac] 150 mg PO BID 10/27/15 [Last Taken 11/27/16 04:00] Tamsulosin HCl [Flomax 0.4 MG (*)] 0.4 mg PO BID 10/27/15 [Last Taken 11/27/16 04:00] Venlafaxine Xr [Effexor Xr 75MG (*)] 150 mg PO DAILY 10/27/15 [Last Taken 04:00] Verapamil ER [Calan SR/ER 120MG (*)] 120 mg PO DAILY 10/27/15 [Last Taken 11/27 04:00] Albuterol [Proventil Inhaler HFA (*)] 1 - 2 puffs IH DAILY PRN 10/10/16 [Last Taken 3 Years Ago ~11/27/13] buPROPion SR [Wellbutrin 150mg SR (*)] 150 mg PO BID 10/10/16 [Last Taken 04:00] IRON 11/24/16 [Last Taken 11/27/16 04:00] Ibuprofen PRN 11/27/16 [Last Taken 11/27/16 04:00] - NPO status NPO Status: no food or drink >8 hours NPO Since - Liquids (Date): 11/27/16 NPO Since - Liquids (Time): 04:00 NPO Since - Solids (Date): 11/26/16 NPO Since - Solids (Time): 18:00 - Smoking Hx Smoking Status: Current some day smoker - Family Anes Hx Family Hx Anesthesia Complications: NONE ANE Labs/Vital Signs - Labs Result Diagrams: 11/27/16 06:38 - Vital Signs Blood Pressure: 119/80 Heart Rate: 69 Respiratory Rate: 16 O2 Sat (%): 90 Height: 198.12 cm Weight: 83.915 kg ANE Physical Exam - Airway Neck exam: FROM Mouth exam: dentures - Pulmonary Pulmonary: no respiratory distress - Cardiovascular Cardiovascular: regular rate and rhythym - ASA Status ASA Status: III ANE Anesthesia Plan Anesthesia Plan: GA w LMA
[2016-11-27 07:09] LABS: ANION GAP 10 mEq/L (8-16); CALCIUM 9.1 mg/dL (8.5-10.4); CARBON DIOXIDE 20 mEq/l (22-31); CHLORIDE 116 mEq/L (97-110); CREATININE 1.3 mg/dL (0.7-1.3); GLOMERULAR FILTRATION RATE 53; GLUCOSE 83 mg/dL (70-100); POTASSIUM 4.7 mEq/L (3.5-5.2); SODIUM 146 mEq/L (134-144)
[2016-11-27] MEDS ORDERED: PROPOFOL/EMULSION 500 MG/50 ML BOTTLE IV ONE (07:11)
[2016-11-27] MEDS ORDERED: fentaNYL 100 MCG/2 ML INJ ONE ×2 (07:18→07:36)
[2016-11-27] MEDS ORDERED: ONDANSETRON 4 MG/2 ML VIAL ONE (07:31)
[2016-11-27] MEDS ORDERED: BUPIVACAINE 0.25% 30 ML SDV ONE (07:36)
[2016-11-27] MEDS ORDERED: OXYCODONE/APAP 5/325 TAB PO PRN (07:50)
[2016-11-27] MEDS ORDERED: NALOXONE HCL 0.4 MG/ML INJ IVP PRN (07:50)
[2016-11-27] MEDS ORDERED: HYDROmorphONE/DILAUDID 1 MG/ML INJ IVP PRN (07:50)
[2016-11-27] MEDS ORDERED: ALBUTEROL 3 ML DEYVIAL IH PRN (07:50)
[2016-11-27] MEDS ORDERED: ACETAMINOPHEN 500 MG TAB PO PRN (07:50)
[2016-11-27] MEDS ORDERED: fentaNYL 100 MCG/2 ML INJ IVP PRN (07:50)
[2016-11-27] MEDS ORDERED: HYDROCODONE/APAP 5/325 TAB PO PRN (07:50)
--- NOTE | 2016-11-27 08:08 | POSTOPPROG ---
Post Op Note Date of Operation: 11/27/16 Surgeon: Kurt Newsome Anesthesiologist: Simeon Anesthesia: GET(General Endotracheal) Pre-op Diagnosis: L second toe cellulitis Post-op Diagnosis: same Procedure: L second toe amputation Findings: specimen of met head taken for cx Inf/Abcess present in the surg proc area at time of surgery?: Yes Depth: Superfical (Skin SQ) EBL: Minimal Specimen(s): toe, phalangeal cx, met head cx
[2016-11-27 08:26] VITALS: RESP 12
--- NOTE | 2016-11-27 08:44 | POSTANESTH ---
Post Anesthetic Evaluation Cardiovascular Status: Normal, Stable Respiratory Status: Normal, Stable Level of Consciousness/Mental Status: Can Participate in Eval Pain Control: Adequate, Prn Tx Ordered Nausea/Vomiting Control: Adequate, Prn Tx Ordered Complications Possibly Related to Anesthesia: None Noted
[2016-11-27 10:11] VITALS: BP 112/78
--- NOTE | 2016-11-27 10:19 | GOP ---
[f rep st] OPERATIVE REPORT DATE OF OPERATION: 11/27/2016 SURGEON: Kurt Newsome MD [employer] SUPERVISOR: None. ANESTHESIA: General endotracheal. ANESTHESIOLOGIST: Jose L Hendrix MD. PREOPERATIVE DIAGNOSIS: Cellulitis of left 2nd toe, possible osteomyelitis. POSTOPERATIVE DIAGNOSIS: Cellulitis of left 2nd toe, possible osteomyelitis. PROCEDURE PERFORMED: Left 2nd toe amputation. FINDINGS: Toe bed bled somewhat. Metatarsal head did not appear affected. SPECIMENS: 1. Left 2nd toe. 2. Proximal phalanges for micro. 3. Distal metatarsal head for micro. ESTIMATED BLOOD LOSS: 10 cc. DESCRIPTION OF PROCEDURE: The patient was greeted in the preoperative suite. Once again, risks, benefits, and alternatives were discussed. The consent was signed. He was then brought back to the operative suite, placed on the OR table in a supine position. After all anesthesia machines, including SCDs were on and functioning, a World Health Organization time-out was performed. The patient's left lower extremity was then prepped and draped in typical sterile fashion. I commenced the procedure by making a racket type incision along the proximal portion of the left 2nd phalange. I carried this down to the subcutaneous tissue and identified the metatarsal head. I then amputated the phalanges from this site including its tendinous attachments and passed it off. A portion of the proximal flange was then removed with a rongeur and sent for micro. In the same fashion, the distal metatarsal head was sectioned and sent off for micro as well. Hemostasis was achieved with a combination of gentle pressure and electrocautery. I then fashioned my skin flap which had minimal tension and closed appropriately over the site. I closed the subcutaneous tissue with multiple interrupted 0 Vicryl and the skin with multiple interrupted 2-0 nylon in an interrupted fashion, noting excellent reapproximation. Sterile dressing was placed. The patient was then extubated in the operative suite and taken to the PACU in satisfactory condition. COUNTS: All counts were reported as correct x2. /[id number]/MODL MTDD
[2016-11-27 10:37] VITALS: TEMP 97.5; O2SAT 92
== END 2016-11-27 10:25 | disposition home or self-care (01) ==
LOC: FSGY 05:45
PROVIDERS: ATTEND Surgery
PROC: 0Y6S0Z0 Detachment at Left 2nd Toe, Complete, Open Approach (ICD-10-PCS; principal; 2016-11-27 07:15)
DX: L03.032 Cellulitis of left toe (principal)
CPT/HCPCS: J2405; J2704; J3010

== ENCOUNTER → 2017-01-22 | Outpatient (CLI) | payer OTHER | LOC: BHFA 14:00 | PROVIDERS: ATTEND Internal Medicine Cardiovascular Disease | DX: R06.02 Shortness of breath (principal); R94.31 Abnormal electrocardiogram [ECG] [EKG] ==

== ENCOUNTER → 2017-01-23 | Outpatient (CLI) | payer OTHER | LOC: BHLMT 14:45 | PROVIDERS: ATTEND Internal Medicine Cardiovascular Disease | DX: I72.0 Aneurysm of carotid artery (principal) | CPT/HCPCS: 93880-PO ==

== ENCOUNTER → 2017-01-25 | Outpatient (CLI) | payer OTHER ==
[~2017-01-25] MED LIST: REGADENOSON 0.4 MG/5 ML SYR IVP ONE
--- NOTE | 2017-01-25 16:06 | CPR ---
[f rep st] NONINVASIVE CARDIAC PROCEDURE REPORT PROCEDURE: Outpatient Lexiscan nuclear stress test. REASON FOR TEST: 1. Known coronary artery disease. 2. History of myocardial infarction. 3. Pre surgery evaluation. PRE: Resting EKG shows a regular sinus rhythm with a right atrial abnormality, nonspecific IVCD, ant erior infarct. Resting blood pressure 134/76, resting heart rate 68, oxygen saturation 98%. He is a symptomatic. STRESS PORTION: Lexiscan was injected, followed by a saline flush. Cardiolite was then injected, fo llowed by a saline flush per protocol. EKG remained stable. He was asymptomatic. There were no arr hythmias or ischemic changes. Peak blood pressure 116/76, peak heart rate 73, oxygen saturation 98%. RECOVERY: He spontaneously recovered. He remained asymptomatic throughout the test. His EKG remain ed stable with 1 PVC noted. Recovery blood pressure 122/78, heart rate 72, oxygen saturation 98%. At this time, he currently is stable for nuclear imaging. /[id number]/MODL
== END ==
LOC: FIMAGING 13:09
PROVIDERS: ATTEND Internal Medicine Cardiovascular Disease
DX: I25.119 Atherosclerotic heart disease of native coronary artery with unspecified angina pectoris (principal); I77.9 Disorder of arteries and arterioles, unspecified; R06.02 Shortness of breath; R94.31 Abnormal electrocardiogram [ECG] [EKG]; Z99.3 Dependence on wheelchair; I25.2 Old myocardial infarction
CPT/HCPCS: 78452; 93017; A9500; J2785

== ENCOUNTER 2017-01-29 13:07 | Inpatient (IN) | payer OTHER ==
--- NOTE | 2017-01-29 13:34 | EDPHY ---
H & P Stated Complaint: Cellulitis(?) LLE worsening;schedule for amputation; here for admission Time Seen by Provider: 01/29/17 13:34 HPI/ROS: CHIEF COMPLAINT: Increasing left lower extremity erythema HISTORY OF PRESENT ILLNESS: The patient has a history of severe peripheral vascular disease. He has a history of osteomyelitis and chronically on healed ulcers in his left leg. The patient is scheduled to undergo an amputation next week. He presents to the ED today with increasing pain, redness and mild swelling to his left leg. The patient denies any fever, vomiting or diarrhea. He denies abdominal pain. The patient denies additional acute complaints. He reports that his symptoms of discomfort are mild in nature. The patient is not anticoagulated. The patient is currently not taking oral antibiotics. He is status post skin grafting to the left lower extremity without improved symptoms. REVIEW OF SYSTEMS: A comprehensive 10 point review of systems is otherwise negative aside from elements mentioned in the history of present illness. Source: Patient Exam Limitations: No limitations - Personal History Current Tetanus Diphtheria and Acellular Pertussis (TDAP): Yes - Medical/Surgical History Hx Asthma: No Hx Chronic Respiratory Disease: No Hx Diabetes: No Hx Cardiac Disease: Yes Hx Renal Disease: No Hx Cirrhosis: No Hx Alcoholism: Yes Hx HIV/AIDS: No Hx Splenectomy or Spleen Trauma: No Other PMH: 1. Skin graft with wound VAC to left lower extremity on November. 2. 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 4. 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 5. Peripheral neuropathy. 6. Avascular necrosis of left hip. 7. Chronic hypoxemic respiratory failure on 2 L nasal cannula oxygen @ night. 8. COPD. 9. History of left wrist fracture. 10. Lumbar fusion. 11. Right carotid endarterectomy. 12. Bilateral total hip arthroplasties - Family History Significant Family History: No pertinent family hx - Social History Smoking Status: Current some day smoker - Physical Exam Exam: General Appearance: Thin male, no acute distress Eyes: Pupils equal and round no pallor or injection ENT, Mouth: Dry mucous membranes Respiratory: There are no retractions, lungs are clear to auscultation Cardiovascular: Regular rate and rhythm Gastrointestinal: Abdomen is soft and nontender, no masses, bowel sounds normal Neurological: A&O, normal motor function, normal sensory exam, normal cranial nerves Skin: Mild cellulitic changes to right leg, more significant cellulitic changes noted to left leg with multiple on healed chronic ulcers Musculoskeletal: Neck is supple nontender Extremities: symmetrical, decreased range of motion bilateral lower extremities , chronic in nature Constitutional: Initial Vital Signs Temperature (C) 36.4 C 01/29/17 13:09 Heart Rate 78 01/29/17 13:09 Respiratory Rate 18 01/29/17 13:09 Blood Pressure 116/79 01/29/17 13:09 O2 Sat (%) 94 01/29/17 13:09 O2 Delivery Mode Room Air O2 (L/minute) 2 Allergies/Adverse Reactions: amoxicillin trihydrate [From Augmentin] Allergy (Intermediate, Verified 13:09) Itching potassium clavulanate [From Augmentin] Allergy (Intermediate, Verified 01/29/17 13:09) Itching guaifenesin Allergy (Unknown, Verified 01/29/17 13:09) Vomiting amoxicillin trihydrate Allergy (Unknown, Uncoded 12/12/16 13:09) Itching potassium clavulanate Allergy (Unknown, Uncoded 12/12/16 13:09) Itching Home Medications: Medication Instructions Recorded Alendronate Sodium [Fosamax 70 MG 70 mg PO PRYOR@0700 10/27/15 (*)] Aspirin [Aspirin 81mg (*)] 81 mg PO DAILY 10/27/15 Ergocalciferol [Vitamin D2 (*)] 50,000 unit PO PRYOR@0700 10/27/15 Hydrochlorothiazide [HCTZ (*)] 12.5 mg PO DAILY 10/27/15 Niacin ER [Niaspan 500 mg (*)] 500 mg PO HS 10/27/15 Ranitidine HCl [Zantac] 150 mg PO BID 10/27/15 Verapamil ER [Calan SR/ER 120MG 120 mg PO DAILY 10/27/15 (*)] buPROPion SR [Wellbutrin 150mg SR 150 mg PO BID 10/10/16 (*)] Ferrous Sulfate [Ferrous Sulf 325 325 mg PO PRYOR@0900 01/29/17 MG (*)] Fish Oil/Dha/Epa [Fish Oil 1,200 1 each PO DAILY 01/29/17 mg Fish Oil] Gabapentin [Gabapentin 800 mg] 800 mg PO TID 01/29/17 Herbals/Supplements -Info Only 1 ea PO DAILY 01/29/17 Ibuprofen [Motrin (*)] 600 mg PO Q4HRS PRN 01/29/17 Metoprolol Succinate Xr [Toprol Xl 25 mg PO DAILY 01/29/17 25 mg (*)] Tamsulosin HCl [Flomax 0.4 MG (*)] 0.8 mg PO DAILY 01/29/17 Venlafaxine Xr [Effexor Xr 75MG 225 mg PO DAILY 01/29/17 (*)] Medical Decision Making ED Course/Re-evaluation: The patient presents to the ED with worsening cellulitis to his left leg. The patient is noted to have leukocytosis but has no additional SIRS criteria. The patient clinically does appear to be dehydrated with a elevated creatinine and slightly elevated venous lactic acid. I spoke with the patient's primary surgeon Dr. Newsome who has requested the patient be admitted to the hospitalist service. The patient is awaiting cardiac clearance prior to his amputation. I consulted with Cardiology and spoke with Marian at 3:30 p.m. who will arrange for cardiac consultation. The patient did have blood cultures x2 obtained in the emergency department. He was started on vancomycin and Invanz. The patient received a 500 mL normal saline bolus for his dehydration. He received 40 mEq of oral potassium for his hypokalemia. The patient will be admitted to the medicine service for preoperative clearance rehydration and correction of his metabolic abnormality. I discussed the case with Dr. David Cool from the hospitalist service who will admit the patient. Differential Diagnosis: Differential diagnosis considered includes cellulitis, sepsis, severe sepsis, dehydration, renal failure, metabolic abnormality - Data Points Laboratory Results: Laboratory Results 01/29/17 13:52 01/29/17 13:52 01/29/17 01/29/17 01/29/17 13:52 13:52 13:52 WBC 16.77 10^3/uL H 10^3/uL (3.80-9.50) RBC 4.10 10^6/uL L 10^6/uL (4.40-6.38) Hgb 12.8 g/dL L g/dL (13.7-17.5) Hct 37.8 % L % (40.0-51.0) MCV 92.2 fL fL (81.5-99.8) MCH 31.2 pg pg (27.9-34.1) MCHC 33.9 g/dL g/dL (32.4-36.7) RDW 15.7 % H % (11.5-15.2) Plt Count 268 10^3/uL 10^3/uL (150-400) MPV 9.7 fL fL (8.7-11.7) Neut % (Auto) 86.9 % H % (39.3-74.2) Lymph % (Auto) 7.4 % L % (15.0-45.0) Banner % (Auto) 4.8 % % (4.5-13.0) Eos % (Auto) 0.2 % L % (0.6-7.6) Baso % (Auto) 0.2 % L % (0.3-1.7) Nucleat RBC Rel Count 0.1 % % (0.0-0.2) Absolute Neuts (auto) 14.58 10^3/uL H 10^3/uL (1.70-6.50) Absolute Lymphs (auto) 1.24 10^3/uL 10^3/uL (1.00-3.00) Absolute Monos (auto) 0.80 10^3/uL 10^3/uL (0.30-0.80) Absolute Eos (auto) 0.04 10^3/uL 10^3/uL (0.03-0.40) Absolute Basos (auto) 0.03 10^3/uL 10^3/uL (0.02-0.10) Absolute Nucleated RBC 0.02 10^3/uL H 10^3/uL (0-0.01) Immature Gran % 0.5 % % (0.0-1.1) Immature Gran # 0.08 10^3/uL 10^3/uL (0.00-0.10) VBG Lactic Acid 2.3 mmol/L H mmol/L (0.7-2.1) Sodium 147 mEq/L H mEq/L (134-144) Potassium 2.8 mEq/L L mEq/L (3.5-5.2) Chloride 116 mEq/L H mEq/L (97-110) Carbon Dioxide 16 mEq/l L mEq/l (22-31) Anion Gap 15 mEq/L mEq/L (8-16) BUN 39 mg/dL H mg/dL (7-23) Creatinine 1.7 mg/dL H mg/dL (0.7-1.3) Estimated GFR 39 Glucose 113 mg/dL H mg/dL (70-100) Calcium 9.2 mg/dL mg/dL (8.5-10.4) Medications Given: Discontinued Medications Ertapenem 1 gm/ Sodium (Chloride) 100 mls @ 200 mls/hr IV EDNOW ONE PRN Reason: Protocol Stop: 01/29/17 16:00 Last Admin: 01/29/17 15:53 Dose: 100 mls Sodium Chloride (Ns) 500 mls @ 1,000 mls/hr IV EDNOW ONE PRN Reason: Protocol Stop: 01/29/17 16:01 Last Admin: 01/29/17 15:47 Dose: 500 mls Morphine Sulfate (Morphine) 4 mg IVP EDNOW ONE Stop: 01/29/17 15:43 Last Admin: 01/29/17 15:48 Dose: 4 mg Potassium Chloride (Klor-Con) 40 meq PO ONCE ONE Stop: 01/29/17 15:47 Last Admin: 01/29/17 16:17 Dose: 40 meq Departure - Departure Disposition: [facility] Inpatient Acute Clinical Impression: Vasculopathy, Peripheral vascular disease, 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
[2017-01-29 14:00] LABS: % IMMATURE GRANULYOCYTES 0.5 % (0.0-1.1); ABSOLUTE IMMATURE GRANULOCYTES 0.08 10^3/uL (0.00-0.10); ABSOLUTE NRBC COUNT 0.02 10^3/uL (0-0.01); ADD DIFF? NO; ADD MORPH? NO; ADD SCAN? NO; ATYPICAL LYMPHOCYTE FLAG 0 (0-99); FRAGMENT RBC FLAG 0 (0-99); HEMATOCRIT 37.8 % (40.0-51.0); HEMOGLOBIN 12.8 g/dL (13.7-17.5); LEFT SHIFT FLG 10 (0-99); LIPEMIA HEMOLYSIS FLAG 90 (0-99); MEAN CELL HEMOGLOBIN 31.2 pg (27.9-34.1); MEAN CELL HEMOGLOBIN CONCENTR. 33.9 g/dL (32.4-36.7); MEAN CELL VOLUME 92.2 fL (81.5-99.8); MEAN PLATELET VOLUME 9.7 fL (8.7-11.7); NRBC-AUTO% 0.1 % (0.0-0.2); PLATELET CLUMPS FLAG 0 (0-99); PLATELET COUNT 268 10^3/uL (150-400); RED CELL DISTRIBUTION WIDTH 15.7 % (11.5-15.2)
[2017-01-29 14:25] LABS: ANION GAP 15 mEq/L (8-16); CALCIUM 9.2 mg/dL (8.5-10.4); CARBON DIOXIDE 16 mEq/l (22-31); CHLORIDE 116 mEq/L (97-110); CREATININE 1.7 mg/dL (0.7-1.3); GLOMERULAR FILTRATION RATE 39; GLUCOSE 113 mg/dL (70-100); POTASSIUM 2.8 mEq/L (3.5-5.2); SODIUM 147 mEq/L (134-144)
[2017-01-29] MEDS ORDERED: VANCOMYCIN HCL/NORMAL SALINE 250 ML IV ONE (15:31)
[2017-01-29] MEDS ORDERED: ERTAPENEM 1 GM in NS 100 ML IV ONE (15:31)
[2017-01-29] MEDS ORDERED: NS 500 ML IV ONE (15:32)
[2017-01-29] MEDS ORDERED: POTASSIUM CL 20 MEQ TAB PO ONE (15:46)
[2017-01-29] MEDS ORDERED: ONDANSETRON DISINTEGRATING 4 MG TAB PO PRN (16:25)
[2017-01-29] MEDS ORDERED: ONDANSETRON 4 MG/2 ML VIAL IVP PRN (16:25)
[2017-01-29] MEDS ORDERED: HYDROmorphONE/DILAUDID 1 MG/ML INJ IVP PRN (16:25)
[2017-01-29] MEDS ORDERED: ACETAMINOPHEN 325 MG TAB PO SCH (16:30)
[2017-01-29] MEDS: NS 1,000 ML IV SCH (17:14)
--- NOTE | 2017-01-29 17:23 | SOAPPROG ---
SOAP Progress Note Assessment/Plan: Assessment/Plan: - patient very well known to me. Has bilateral lower extremity wounds, L>R. Was scheduled for outpatient BKA last week but cancelled 2/2 need for cardiac clearance which he has since received - Appreciate IM assistance with management and empiric abd - NPO at [place], looking for OR time tomorrow for L BKA, and washout of R lower leg. 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
--- NOTE | 2017-01-29 17:37 | GHP ---
[f rep st] HISTORY AND PHYSICAL DATE OF ADMISSION: 01/29/2017 HISTORY OF PRESENT ILLNESS: The patient is a pleasant 76-year-old gentleman with a history of periph eral vascular disease. He has a left foot that has been followed by Dr. Kurt Newsome for recurren t infections and ulcerations. He had been seen in wound care. There have been some plans for lower extremity amputation and he was awaiting preoperative cardiac evaluation, which was performed last we ek and was normal. The patient has home care who perform dressing changes, and they saw today with i ncreased erythema and they referred him to the emergency department. The patient denies fever or chills. He has had no pain in his groin. He has not had night sweats. He has not had confusion, other than when he was on some oxycodone which his has subsequently di scontinued. He denies lightheadedness or dizziness. It sounds like he has been taking a fair amount of ibuprofen for pain. He says he has been eating and drinking well. The patient is on unable to achieve 4 METS of baseline activity. REVIEW OF SYSTEMS: Complete 10-point review of systems conducted and negative, except as noted in th e HPI. PAST MEDICAL HISTORY: 1. Peripheral vascular disease. 2. COPD, on home oxygen. 3. 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 4. 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 5. Left hip avascular necrosis. 6. Chronic hypoxemic respiratory failure on 2 L. 7. Baseline COPD. 8. Left wrist fracture in 2016 with surgical intervention. PAST SURGICAL HISTORY: He has also had right carotid stent, total hip arthroplasty bilaterally. ALLERGIES: He is allergic to amoxicillin, guaifenesin and clavulanate. MEDICATIONS: Alendronate, aspirin, ibuprofen, bupropion, vitamin D2, iron, fish oil, gabapentin, hyd rochlorothiazide, metoprolol, niacin, ranitidine, tamsulosin, venlafaxine, verapamil. SOCIAL HISTORY: He lives with his in [place]. Two to three packs a day of cigarettes. Quit alcohol in 1982. FAMILY HISTORY: Negative for coronary artery disease and diabetes. PHYSICAL EXAM: VITAL SIGNS: Temp 36.4, blood pressure 116/79, pulse 78, breathing 18 times a minute , 94% in room air. GENERAL: Chronically ill-appearing, but in no acute distress. HEENT: Sclerae a nicteric. Oropharynx clear. Mucous membranes moist. NECK: Supple, without lymphadenopathy or JVD. LUNGS: Clear to auscultation bilaterally. HEART: S1 and S2, without murmurs. ABDOMEN: Soft, no ntender, nondistended. LOWER EXTREMITIES: Show absence of hair loss and muscle wasting bilaterally. On his left lower extremity, there are foul-smelling wounds that are bandaged on his foot. He has erythema around his leg. There is no lymphangitic streaking above his knee. LYMPHATICS: He has no inguinal lymphadenopathy. NEUROLOGIC: Nonfocal. SKIN: Otherwise without rash. LABORATORY DATA: White count is 16, hematocrit 38, platelets are 268,000. INR is 1.1. Venous lacta te is 2.3. Sodium 147, potassium 2.8, chloride 116, bicarb 16, BUN 39, creatinine 1.7, glucose 113. IMAGING: There is no imaging. I have discussed the case Dr. Kurt Newsome. ASSESSMENT AND PLAN: A 76-year-old gentleman with peripheral vascular disease and plan for elective [id number]-gye-fjvu amputation on the left, presents with cellulitis. 1. Cellulitis. This is worsened secondary to poor vascular flow and these ulcers. He was started o n vancomycin and ertapenem. I will continue vancomycin therapy. I will start a gram in the morning. 2. Acute kidney injury. The patient, by labs, appears dry. However, his heavy NSAID use is concern ing. I will hold them. Will start him on some IV fluids and re-evaluate. 3. Preoperative cardiac evaluation. The patient cannot achieve 4 METS. He has a recent negative st ress test. He is certainly a vasculopath. Continue his beta-demetrio therapy. Restart aspirin when available. He may proceed to the OR without further workup or intervention. 4. Prophylaxis. The patient needs VTE prophylaxis. I have held this and will start when appropriat e from surgical timing. 5. Pain. Scheduled Tylenol, p.r.n. Dilaudid. DISPOSITION: Inpatient status. /[id number]/MODL
[2017-01-29] MEDS: HYDROmorphone HCL/NS/PF 0.4 MG/2 ML SYR IVP PRN (18:34)
[2017-01-29] MEDS: buPROPion SR 150 MG TAB PO SCH (20:30)
[2017-01-29] MEDS: NIACIN ER 500 MG TAB.ER PO SCH (20:30)
[2017-01-29] MEDS: FAMOTIDINE 20 MG TAB PO SCH (20:30)
[2017-01-29] MEDS: ACETAMINOPHEN 500 MG TAB PO SCH (20:31)
[2017-01-29] MEDS: GABAPENTIN 400 MG CAP PO SCH (20:32)
[2017-01-29] MEDS ORDERED: NON-FORMULARY NEW DRUG (Ranitidine Hcl [Zantac] 150 MG) PO SCH (21:00)
[2017-01-29] MEDS ORDERED: NON-FORMULARY NEW DRUG (Gabapentin [Gabapentin 800 Mg] 800 MG) PO SCH (22:00)
[2017-01-30] MEDS: NS 1,000 ML IV SCH ×2 (02:23→10:40)
[2017-01-30 05:03] LABS: % IMMATURE GRANULYOCYTES 0.5 % (0.0-1.1); ABSOLUTE IMMATURE GRANULOCYTES 0.06 10^3/uL (0.00-0.10); ADD DIFF? NO; ADD MORPH? NO; ADD SCAN? NO; ATYPICAL LYMPHOCYTE FLAG 0 (0-99); FRAGMENT RBC FLAG 0 (0-99); HEMATOCRIT 31.2 % (40.0-51.0); HEMOGLOBIN 10.3 g/dL (13.7-17.5); LEFT SHIFT FLG 0 (0-99); LIPEMIA HEMOLYSIS FLAG 80 (0-99); MEAN CELL HEMOGLOBIN 31.2 pg (27.9-34.1); MEAN CELL VOLUME 94.5 fL (81.5-99.8); MEAN PLATELET VOLUME 10.3 fL (8.7-11.7); PLATELET CLUMPS FLAG 0 (0-99); PLATELET COUNT 226 10^3/uL (150-400); RED CELL DISTRIBUTION WIDTH 15.7 % (11.5-15.2)
[2017-01-30 05:17] LABS: INR 1.24 (0.83-1.16); PROTIME(PATIENT) 15.6 SEC (12.0-15.0)
[2017-01-30 05:18] LABS: APTT 53.4 SEC (23.0-38.0)
[2017-01-30 05:24] LABS: ANION GAP 11 mEq/L (8-16); CARBON DIOXIDE 18 mEq/l (22-31); CHLORIDE 117 mEq/L (97-110); CREATININE 1.2 mg/dL (0.7-1.3); GLOMERULAR FILTRATION RATE 59; GLUCOSE 85 mg/dL (70-100); SODIUM 146 mEq/L (134-144)
[2017-01-30] MEDS: ACETAMINOPHEN 500 MG TAB PO SCH ×3 (05:24→22:44)
[2017-01-30] MEDS: buPROPion SR 150 MG TAB PO SCH ×2 (08:20→20:25)
[2017-01-30] MEDS: TAMSULOSIN HCL 0.4 MG CAP PO SCH (08:20)
[2017-01-30] MEDS: VERAPAMIL ER 120 MG TAB PO SCH (08:21)
[2017-01-30] MEDS: HYDROCHLOROTHIAZIDE 25 MG TAB PO SCH (08:21)
[2017-01-30] MEDS: OMEGA-3 FATTY ACIDS 1,000 MG CAP PO SCH (08:21)
[2017-01-30] MEDS: FAMOTIDINE 20 MG TAB PO SCH ×2 (08:21→20:26)
[2017-01-30] MEDS: METOPROLOL SUCCINATE XR 25 MG TAB PO SCH (08:22)
[2017-01-30] MEDS: GABAPENTIN 400 MG CAP PO SCH ×3 (08:22→22:44)
[2017-01-30] MEDS: VENLAFAXINE XR 75 MG CAP PO SCH (08:22)
[2017-01-30] MEDS ORDERED: Herbals/Supplements -Info Only PO SCH (09:00)
--- NOTE | 2017-01-30 10:58 | ASMTCMCOM ---
CM Note CM Note Notes: Patient preop today for Left lower leg amputation. Lives independent with his in [place], No other support. Likely needs SNF on dc/ He reports he has previously stayed at [facility] and is agreeable to going there again. Final needs yet to be determined. CM to follow. Date Signed: 01/30/2017 10:57 AM Electronically Signed By:Karen Amaro RN
[2017-01-30] MEDS ORDERED: BUPIVACAINE 0.5% 30 ML SDV ONE (10:59)
[2017-01-30] MEDS ORDERED: BACITRACIN 50,000 UNITS/10 ML SYR IRR ONE (10:59)
[2017-01-30] MEDS ORDERED: POLYMYXIN B SULFATE 500,000 UNIT/10 ML SYR IRR ONE (10:59)
[2017-01-30] MEDS: VANCOMYCIN 1.25 GM in D5W 250 ML IV SCH (11:14)
--- NOTE | 2017-01-30 11:53 | PDMN ---
Medical Necessity Medical necessity: Pt meets IP criteria per MD; est los >2 mn for eval/tx of LLE cellulitis secondary to poor vascular flow & ulcerations, acute kidney injury; admit for IV abx, IVF, L BKA & R lower leg washout; hx BLE wounds/ infections, PVD, CAD, HTN, COPD, infrarenal AAA, chronic occlusion of inferior mesenteric artery, L hip avascular necrosis; per H&P & order 01/29/17
[2017-01-30] MEDS ORDERED: VANCOMYCIN HCL/NORMAL SALINE 250 ML IV SCH (12:00)
[2017-01-30] MEDS ORDERED: LR 1,000 ML IV ONE (12:07)
--- NOTE | 2017-01-30 12:15 | PDANEPAE ---
ANE History of Present Illness 76 yo M here for BKA ANE Past Medical History - Cardiovascular History Hx Hypertension: Yes Hx Arrhythmias: No Hx Coronary Artery / Peripheral Vascular Disease: Yes Hx CHF / Valvular Disease: No Hx Palpitations: No Cardiovascular History Comment: SILENT MT-1993 - Pulmonary History Hx COPD: Yes Hx Asthma/Reactive Airway Disease: No Hx Recent Upper Respiratory Infection: No Hx Oxygen in Use at Home: Yes O2 in Use at Home (L/minute): 2 Hx Sleep Apnea: Yes Sleep Apnea Screening Result - Last Documented: Positive Pulmonary History Comment: [employer]. 2013 post surgical PE. O2 AT [facility] [place] [facility] NAPS - Neurologic History Hx Cerebrovascular Accident: Yes Hx Seizures: No Hx Dementia: No Neurologic History Comment: HX OF FUSION LUMBAR. STROKE - 1993 NO RESIDUAL PROB. - Endocrine History Hx Diabetes: No - Renal History Hx Renal Disorders: Yes Renal History Comment: HX OF KIDNEY STONES WITH LITHOTRIPSY. - Liver History Hx Hepatic Disorders: No - Neurological & Psychiatric Hx Hx Neurological and Psychiatric Disorders: Yes Neurological / Psychiatric History Comment: DEPRESSION-meds. - Cancer History Hx Cancer: No - Congenital Disorder History Hx Congenital Disorders: No - GI History Hx Gastrointestinal Disorders: Yes Gastrointestinal History Comment: HEMORRHOIDS. REFLUX. - Other Health History Other Health History: cellulitis L foot-2nd toe. Mild bilateral hearing loss. Upper&lower dentures. - Chronic Pain History Chronic Pain: No (LOWER BACK AND HIP) - Surgical History Prior Surgeries: 10/29/15 i&d left leg ulcer with Marthaller. L HIP REPLACEMENT 11/2013. CAROTID ENDARTERECTOMY -2003. LAMINECTOMY 02/2011 L3-5 FUSION. LITHOTRIPSY 11/2009. 06/30-R SERGEY, revision 24 hours later. Bilateral cataract surg-2007. ANE Review of Systems Review of Systems: - Exercise capacity METS (RN): 4 METS ANE Patient History - Allergies Allergies/Adverse Reactions: amoxicillin trihydrate [From Augmentin] Allergy (Intermediate, Verified 13:09) Itching potassium clavulanate [From Augmentin] Allergy (Intermediate, Verified 01/29/17 13:09) Itching guaifenesin Allergy (Unknown, Verified 01/29/17 13:09) Vomiting amoxicillin trihydrate Allergy (Unknown, Uncoded 12/12/16 13:09) Itching potassium clavulanate Allergy (Unknown, Uncoded 12/12/16 13:09) Itching - Home Medications Home medications: home medication list seen and reviewed Home Medications: Alendronate Sodium [Fosamax 70 MG (*)] 70 mg PO PRYOR@0700 10/27/15 [Last Taken 08/02] Aspirin [Aspirin 81mg (*)] 81 mg PO DAILY 10/27/15 [Last Taken 01/27/17] Ergocalciferol [Vitamin D2 (*)] 50,000 unit PO PRYOR@0700 10/27/15 [Last Taken 08/02] Hydrochlorothiazide [HCTZ (*)] 12.5 mg PO DAILY 10/27/15 [Last Taken 01/27/17] Niacin ER [Niaspan 500 mg (*)] 500 mg PO HS 10/27/15 [Last Taken 01/27/17] Ranitidine HCl [Zantac] 150 mg PO BID 10/27/15 [Last Taken 01/27/17] Verapamil ER [Calan SR/ER 120MG (*)] 120 mg PO DAILY 10/27/15 [Last Taken 01/27] buPROPion SR [Wellbutrin 150mg SR (*)] 150 mg PO BID 10/10/16 [Last Taken ] Ferrous Sulfate [Ferrous Sulf 325 MG (*)] 325 mg PO PRYOR@0900 01/29/17 [Last Taken 01/21/17] Fish Oil/Dha/Epa [Fish Oil 1,200 mg Fish Oil] 1 each PO DAILY 01/29/17 [Last Taken 01/27/17] Gabapentin [Gabapentin 800 mg] 800 mg PO TID 01/29/17 [Last Taken 01/27/17] Herbals/Supplements -Info Only 1 ea PO DAILY 01/29/17 [Last Taken Unknown] Ibuprofen [Motrin (*)] 600 mg PO Q4HRS PRN 01/29/17 [Last Taken 01/29/17] Metoprolol Succinate Xr [Toprol Xl 25 mg (*)] 25 mg PO DAILY 01/29/17 [Last Taken 01/27/17] Tamsulosin HCl [Flomax 0.4 MG (*)] 0.8 mg PO DAILY 01/29/17 [Last Taken 01/27/17 ] Venlafaxine Xr [Effexor Xr 75MG (*)] 225 mg PO DAILY 01/29/17 [Last Taken ] - NPO status NPO Status: no food or drink >8 hours NPO Since - Liquids (Date): 01/30/17 NPO Since - Liquids (Time): 00:00 NPO Since - Solids (Date): 01/30/17 NPO Since - Solids (Time): 00:00 - Anes Hx Anes Hx: no prior problems - Smoking Hx Smoking Status: Current some day smoker - Family Anes Hx Family Anes Hx: none Family Hx Anesthesia Complications: NONE ANE Labs/Vital Signs - Labs Result Diagrams: 01/30/17 04:14 01/30/17 04:14 - Vital Signs Blood Pressure: 103/64 Heart Rate: 57 Respiratory Rate: 18 O2 Sat (%): 96 Height: 187.96 cm Weight: 79.379 kg ANE Physical Exam - Airway Neck exam: FROM Mallampati Score: Class 2 Mouth exam: dentures, teague - Pulmonary Pulmonary: no respiratory distress - Cardiovascular Cardiovascular: regular rate and rhythym - ASA Status ASA Status: III ANE Anesthesia Plan Anesthesia Plan: general endotracheal anesthesia Regional Anesthesia: single shot NB
[2017-01-30] MEDS ORDERED: fentaNYL 100 MCG/2 ML INJ ONE (12:21)
[2017-01-30] MEDS ORDERED: PROPOFOL 200 MG/20 ML VIAL ONE ×2 (12:21)
[2017-01-30] MEDS ORDERED: LIDOCAINE 2% 100 MG/5 ML SYR ONE (12:22)
--- NOTE | 2017-01-30 13:06 | HOSPPROG ---
Hospitalist Progress Note Assessment/Plan: 76y male with hx cellulitis, pain. 1st encounter, chart reviewed. Patient reviewed with Dr. Newsome. # left lower extremity cellulitis To be OR today BKA On vancomycin Continue antibiotic therapy Await margins # peripheral vascular disease Chronic # acute kidney injury Better with IV fluids Continue to hold NSAIDs # DVT prophylaxis Await surgery recommendations # COPD Monitor in the postoperative setting Oxygen-dependent # tobacco abuse Continue cessation education # disposition Unclear Continue PT OT postoperatively Consider snf placement Subjective: Tired today. Waiting surgery. No other complaints. Objective: Vital Signs Temp Pulse Resp BP Pulse Ox 36.6 C 57 L 18 103/64 96 01/30/17 11:29 01/30/17 12:15 01/30/17 12:15 01/30/17 12:15 01/30/17 12:15 Laboratory Results 01/30/17 04:14 01/30/17 04:14 01/29/17 01/30/17 01/31/17 05:59 05:59 05:59 Intake Total 1763 Output Total 550 275 Balance -550 1488 PT 15.6 SEC (12.0-15.0) H 01/30/17 04:14 INR 1.24 (0.83-1.16) H 01/30/17 04:14 - Physical Exam Constitutional: not in pain, chronically ill appearing, cachectic Eyes: PERRL, anicteric sclera, EOMI Ears, Nose, Mouth, Throat: moist mucous membranes, hearing normal, ears appear normal Cardiovascular: regular rate and rhythym, No JVD, No edema Respiratory: no respiratory distress, no rales or rhonchi, reduced air movement Gastrointestinal: No tenderness, No ascites, No guarding Skin: warm, No normal color, No mottled Musculoskeletal: normal joint ROM, no joint effusions, generalized weakness Neurologic: AAOx3 Psychiatric: not anxious, not encephalopathic, poor insight, poor judgement ICD10 Worksheet Patient Problems: Problems Problem Status Onset 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
[2017-01-30] MEDS ORDERED: ONDANSETRON 4 MG/2 ML VIAL ONE (13:25)
[2017-01-30] MEDS ORDERED: DEXAMETHASONE 4 MG/ML VIAL ONE (13:25)
[2017-01-30] MEDS ORDERED: HYDROmorphONE/DILAUDID 2 MG/ML INJ ONE (13:56)
[2017-01-30] MEDS ORDERED: clonIDINE 1 MG/10 ML VIAL EP ONE (14:02)
[2017-01-30] MEDS ORDERED: fentaNYL 100 MCG/2 ML INJ IVP PRN (14:35)
[2017-01-30] MEDS ORDERED: ONDANSETRON 4 MG/2 ML VIAL IVP PRN (14:35)
[2017-01-30] MEDS ORDERED: MEPERIDINE 25 MG/ML SYR IVP PRN (14:35)
[2017-01-30] MEDS ORDERED: NALOXONE HCL 0.4 MG/ML INJ IVP PRN (14:35)
[2017-01-30] MEDS ORDERED: HYDROmorphONE/DILAUDID 1 MG/ML INJ IVP PRN ×3 (14:35→19:48)
[2017-01-30] MEDS ORDERED: HYDROmorphone HCL/NS/PF 0.4 MG/2 ML SYR IVP PRN (14:38)
[2017-01-30] MEDS ORDERED: HYDROmorphONE/DILAUDID 1 MG/ML INJ ONE (16:26)
[2017-01-30] MEDS: HYDROmorphone HCL/NS/PF 0.4 MG/2 ML SYR IVP PRN (19:25)
--- NOTE | 2017-01-30 20:18 | GCON ---
[f rep st] CONSULTATION CHIEF COMPLAINT: Bilateral lower extremity wounds with pain. HISTORY OF PRESENT ILLNESS: This is a 76-year-old male, well known to me, with bilateral lower extre mity wounds, which I have been following as an outpatient for some time. I most recently evaluated t he patient in the clinic last week. We have been working on wound care, and have recently made the d ecision that the patient has failed wound care for his left lower extremity, and we have made the dec ision to proceed with amputation. We had him tentatively scheduled for the operating room, but ask h is drop hammer pile driver operator for evaluation prior to proceeding, and the drop hammer pile driver operator wanted to do some tests. In the interim, the patient continues to have pain at the site. He has subsequently cleared all his ca rdiac tests, and is cleared to proceed with surgery. His wound care nurse called the clinic this mor lisbet stating that the patient was complaining of more pain, and that the wounds looked worse. I had the patient present to the Emergency Department for further evaluation. On my evaluation, the patien t has been successfully admitted to the medical floor. The left lower extremity has some worsening c ellulitis, which is new, but the wound on the anterior dorsum of the left foot appears stable. Same with the right, they also appears stable. The patient denies having any fevers or chills, but states that the pain has been worse. PAST MEDICAL HISTORY: Peripheral vascular disease, COPD, infrarenal AAA, status post graft, chronic occlusion of the celiac access, left hip avascular necrosis, chronic hypoxemic respiratory failure, l eft wrist fracture. PAST SURGICAL HISTORY: Right carotid stent, total hip replacement bilaterally. He has also had sten ting of his left common femoral artery. He also had non-take of a skin graft to the left lower extre mity. ALLERGIES: Amoxicillin. CURRENT MEDICATIONS: Aspirin, ibuprofen, bupropion, vitamin D, fish oil, gabapentin, hydrochlorothia zide, metoprolol, niacin, ranitidine, tamsulosin, venlafaxine, verapamil, and [place] as needed for sandeep n. SOCIAL: With his in [place]. Continues to smoke 2-3 packs of cigarettes a day. Currently de nies alcohol use. FAMILY HISTORY: Noncontributory. REVIEW OF SYSTEMS: A full 10-point review was performed and unless stated above, is otherwise negati ve. PHYSICAL EXAMINATION: VITAL SIGNS: Heart rate 64, blood pressure 136/70, temperature 36.8, 99% on 2 L nasal cannula. CONSTITUTIONAL: He is in no apparent distress. He does appear uncomfortable. EY ES: His pupils are equal, round, and reactive to light and accommodation. He has anicteric sclerae. His extraocular movements are intact. EARS, NOSE, MOUTH AND THROAT: He has dry mucous membranes. His hearing is normal. His ears appear normal. He has no oral mucosal ulcers. CV: He has a regul ar rate and rhythm. He has no murmurs. RESPIRATORY: His lungs sound coarse. He is in no respirato ry distress. GI: His abdomen is soft, nondistended, nontender with normoactive bowel sounds. SKIN: He has lesions on the anterior dorsum of both feet, left greater than right, extending up the media l anterior leg. Significantly tender and painful. MUSCULOSKELETAL: Poor strength in the lower extr emities. Tender to palpation in the lower extremities. Normal joint range of motion. NEUROLOGIC: He is alert and oriented x3. His cranial nerves 2-12 are intact. He has no weakness, no numbness. PSYCH: He is interacting appropriately. He is not anxious. He is not encephalopathic, and his thou ght process is linear. LYMPH, HEME, IMMUNOLOGIC: He has no cervical, supraclavicular, or groin lymp hadenopathy. LABORATORY DATA: Leukocytosis to 16,000. H and H 12 and 38. Chemistries are all over the place, wi th pretty much every electrolytes abnormal. His creatinine is better this morning at 1.2 from 1.7. His potassium is now 3 from 2.8. Imaging none. ASSESSMENT AND PLAN: A 76-year-old male with multiple medical problems, chronic nonhealing wounds of both lower extremities, left greater than right. In keeping with my previous plan now that the ramone ent has cardiac clearance, we will plan to proceed to the operating room as time permits for a left b elow-knee amputation with debridement of the right lower extremity. The patient understands the risk s, benefits, and alternatives. Plan to proceed to the operating room as time permits. /[id number]/MODL
[2017-01-30] MEDS: NIACIN ER 500 MG TAB.ER PO SCH (20:25)
[2017-01-30] MEDS: oxyCODONE IR 5 MG TAB PO PRN (20:25)
[2017-01-31] MEDS: NS 1,000 ML IV SCH ×3 (01:25→11:58)
--- NOTE | 2017-01-31 02:34 | GOP ---
[f rep st] OPERATIVE REPORT DATE OF OPERATION: 01/30/2017 SURGEON: Kurt Newsome MD DIRECTOR FUNDS DEVELOPMENT: Dr. Avani Jo, who was requested by me for adequate exposure and timely completion of t he case. ANESTHESIA: General endotracheal. ANESTHESIOLOGIST: Dr. Walton. PREOPERATIVE DIAGNOSIS: 1. Chronic left lower extremity dorsal foot and left lower leg ulcers. 2. Right lower extremity dorsal foot nonhealing ulcer. POSTOPERATIVE DIAGNOSIS: PROCEDURE PERFORMED: 1. Left below-knee amputation. 2. Ultrasonic debridement of right foot. FINDINGS: Left BKA successfully performed with long posterior flap. Wound VAC successfully placed o maylin the closed incision. Right dorsal foot successfully debrided with ultrasonic device. SPECIMENS: Right lower leg. ESTIMATED BLOOD LOSS: 100 cc. DESCRIPTION OF PROCEDURE: The patient was greeted in the preoperative suite. Once again, risks, keyanna efits, and alternatives were discussed. The consent was signed. He was then brought back to the ope rative suite, placed on the OR table in supine position. After all anesthesia machines, including SC Ds, were on and functioning, a World Health Organization time-out was performed, ending with all in a greement. General endotracheal anesthesia was then induced without incident. Antibiotics were given on-call to the operating room. Both the right and left lower extremities were prepped and draped in typical sterile fashion. I turned my attention first toward the left lower extremity. A transverse incision was made approxim ately 10 cm below the tibial tuberosity. A long posterior flap was created and taken to the subcutan eous tissues with electrocautery. The superficial peroneal nerve was identified and successfully amp utated highly. The anterior compartment was then divided. The anterior neurovascular bundle was the n identified, clamped and suture ligated with 3-0 Vicryl ties, and successfully amputated at this sit e. The plane was taken between the deep and superficial compartments at this time. The superficial compartment was then reflected posteriorly. The tibial nerve was identified and cut. Tibial vessels were identified, clamped, ligated with 3-0 Vicryl and subsequently cut. The periosteum of the tibia was then elevated proximally along with the fibula. The tibia was then cut with the bone saw. It w as beveled anteriorly and smoothed down with a dionne rasp. The fibula was cut in the same fashion, approximately 1 cm proximal, using the same bone cutting device. The remainder of the posterior com partment at this point, was divided. The peroneal bundle was identified and ligated with 3-0 Vicryl, and subsequently cut. The leg was then subsequently removed from the posterior compartment and pass ed off. Hemostasis at this time was noted to be excellent, with all vascular bundle successfully lig ated. There were some small component muscular bleeders which were successfully taken care of with e lectrocautery. The gastrocsoleus fascia was then brought up from posterior to anteriorly, and attach ed to the anterior fascia and periosteum using multiple interrupted 0 Vicryl stitches in an interrupt ed fashion. The remainder of the fascia was approximated in this fashion. The subcutaneous tissue w as then closed with multiple interrupted 3-0 Vicryl stitches, and the skin was closed with running 2- 0 nylon, noting excellent reapproximation without any appropriate pressure points. This area was the n covered with Adaptic, and a Wound-VAC was successfully placed over the incision and attached to suc tion at 75 mmHg, which was well tolerated by the patient. All pressure points were appropriately pad ded. My attention was then turned toward the patient's right foot, which had also been prepped and draped. Using the Jike Xueyuanonix ultrasonic dissector device, I successfully debrided the dorsum of the foot down to good viable bleeding tissue, an area measuring approximately 10 x 5 cm. After this was done, I ob tained hemostasis with gentle pressure. Over this, I placed a piece of Hydrofera Blue, which was tap ed with Steris and successfully wrapped. Hemostasis for both was noted to be excellent. The patient was then extubated in the operative suite and taken to the PACU in satisfactory condition. DRAINS: None. COUNTS: All counts were reported as correct x2. /[id number]/MODL
[2017-01-31] MEDS ORDERED: NS 500 ML IV ONE (03:56)
[2017-01-31 05:18] LABS: HEMATOCRIT 29.4 % (40.0-51.0); HEMOGLOBIN 9.1 g/dL (13.7-17.5); MEAN CELL HEMOGLOBIN 30.3 pg (27.9-34.1); RED CELL DISTRIBUTION WIDTH 15.9 % (11.5-15.2)
[2017-01-31] MEDS: ACETAMINOPHEN 500 MG TAB PO SCH ×3 (05:31→22:05)
[2017-01-31 05:38] LABS: ANION GAP 10 mEq/L (8-16); CALCIUM 7.8 mg/dL (8.5-10.4); CARBON DIOXIDE 18 mEq/l (22-31); CHLORIDE 119 mEq/L (97-110); GLOMERULAR FILTRATION RATE > 60; GLUCOSE 99 mg/dL (70-100); POTASSIUM 3.8 mEq/L (3.5-5.2); SODIUM 147 mEq/L (134-144)
--- NOTE | 2017-01-31 07:27 | SOAPPROG ---
SOAP Progress Note Assessment/Plan: Assessment/Plan: - POD#1 s/p L BKA, R foot debridement - looks good today, VAC holding suction with min output - pain controlled, reg diet, oral pain meds as needed - wound care to assist with R foot. I am planning on leaving the VAC on a week, will change myself. Stump protector today - OK for passive movement exercises to prevent contracture on L BK stump. protector will ultimately help with this 01/29/17 17:21 01/31/17 07:26 Subjective: Pain controlled, back to baseline mentally. Objective: Vital Signs Temp Pulse Resp BP Pulse Ox 36.9 C 62 18 109/61 96 01/31/17 03:22 01/31/17 03:22 01/31/17 03:22 01/31/17 04:39 01/31/17 03:22 Laboratory Results 01/31/17 04:17 01/31/17 04:17 01/30/17 01/31/17 02/01/17 05:59 05:59 05:59 Intake Total 2663 1926 Output Total 550 675 Balance -550 1987 1926 PT 15.6 SEC (12.0-15.0) H 01/30/17 04:14 INR 1.24 (0.83-1.16) H 01/30/17 04:14 ICD10 Worksheet Patient Problems: Problems Problem Status Onset Acute leg pain Acute Cellulitis Acute Dehydration Acute Hypokalemia Acute Renal failure (ARF), acute on chronic Acute COPD (chronic obstructive pulmonary disease) Chronic 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
[2017-01-31] MEDS: GABAPENTIN 400 MG CAP PO SCH ×3 (08:55→22:05)
[2017-01-31] MEDS: FAMOTIDINE 20 MG TAB PO SCH ×2 (08:55→22:05)
[2017-01-31] MEDS: buPROPion SR 150 MG TAB PO SCH ×2 (08:56→22:12)
[2017-01-31] MEDS: VENLAFAXINE XR 75 MG CAP PO SCH (08:56)
[2017-01-31] MEDS: OMEGA-3 FATTY ACIDS 1,000 MG CAP PO SCH (08:56)
[2017-01-31] MEDS: oxyCODONE IR 5 MG TAB PO PRN (10:04)
[2017-01-31] MEDS: METOPROLOL SUCCINATE XR 25 MG TAB PO SCH (10:48)
[2017-01-31] MEDS: TAMSULOSIN HCL 0.4 MG CAP PO SCH (10:48)
[2017-01-31] MEDS: HYDROCHLOROTHIAZIDE 25 MG TAB PO SCH (11:01)
[2017-01-31] MEDS: VERAPAMIL ER 120 MG TAB PO SCH (11:01)
--- NOTE | 2017-01-31 11:56 | WOCRNPDOC ---
WOCRN Advanced Assessment Note - Skin Integrity Problem, Advanced Assess Right Foot Dressing Type: Hydrofera Blue, Kerlix, Other Other Dressing Type: steri strips Dressing Description: Intact, Shadowed Exudate Amount: Minimal Exudate Color: Reddish/Yellow Exudate Characteristic(s): Serosanguinous Integumentary Issue Intervention: Dressing Removed Arlyn Wound Tissue: Erythema, Hot, Swollen, Painful/Tender Arlyn Wound Swelling: Mild Wound Bed Color: Yellow Wound Bed Constitution: Adhered Slough Wound Edges: Attached, Well Defined Site Measurement - Head-to-Toe Length X Width X Depth (cm): 10.7x5.8xslough Skin Integrity Problem Comment: Wound bed completely covered with yellow slough. Patient needs further debridement. Discussed larval therapy with patient and he agrees with plan. Plan will be to place larva tomorrow and wound care will follow patient closely. RN to recover wound today with hydrofera blue and kerlix until larval therapy begins.
[2017-01-31] MEDS: VANCOMYCIN 1.25 GM in D5W 250 ML IV SCH (11:59)
--- NOTE | 2017-01-31 12:31 | HOSPPROG ---
Hospitalist Progress Note Assessment/Plan: 76y male with hx cellulitis, pain. Patient reviewed with Dr. Newsome. # left lower extremity cellulitis POD #1 LBKA On vancomycin, ID consult D/W Dr Gipson Continue antibiotic therapy wound vac in place #Right foot debridement maggot therapy per wound care #Anemia acute on chronic stable #Hypernatremia follow stop NS # peripheral vascular disease Chronic # acute kidney injury Better with IV fluids Continue to hold NSAIDs # DVT prophylaxis Await surgery recommendations # COPD Monitor in the postoperative setting Oxygen-dependent # tobacco abuse Continue cessation education # Hypotension hold verapamil HCTZ # disposition Unclear will need SNF Continue PT OT postoperatively Subjective: Up in bed. Having some pain. Some confusion. Objective: Vital Signs Temp Pulse Resp BP Pulse Ox 36.8 C 63 18 108/57 L 94 01/31/17 12:00 01/31/17 12:00 01/31/17 12:00 01/31/17 12:00 01/31/17 12:00 Laboratory Results 01/31/17 04:17 01/31/17 04:17 01/30/17 01/31/17 02/01/17 05:59 05:59 05:59 Intake Total 2663 2427 Output Total 550 675 200 Balance -550 1988 2227 PT 15.6 SEC (12.0-15.0) H 01/30/17 04:14 INR 1.24 (0.83-1.16) H 01/30/17 04:14 - Physical Exam Constitutional: appears nourished, chronically ill appearing, uncomfortable Eyes: PERRL, anicteric sclera, EOMI Ears, Nose, Mouth, Throat: moist mucous membranes, hearing normal, ears appear normal Cardiovascular: No JVD, No tachycardia, No edema Respiratory: no respiratory distress, no rales or rhonchi, reduced air movement Gastrointestinal: normoactive bowel sounds, No tenderness, No ascites Skin: warm, no rashes or abrasions, erythema Musculoskeletal: pain with ROM, muscular tenderness, abnormal gait, generalized weakness Psychiatric: not anxious, poor insight, poor judgement, poor memory ICD10 Worksheet Patient Problems: Problems Problem Status Onset 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
--- NOTE | 2017-01-31 15:38 | PCMIDPN ---
Assessment/Plan: Assessment: Patient known from prior visit [facility] earlier this year. He had bilateral chronic lower extremity dorsal feet ulcerations. Poor microvascular circulation. He underwent a left lrmau-kuu-wkok amputation during this visit. He was covered with IV vancomycin prior to this surgery for possible left lower extremity cellulitis. This is not needed presently. We will discontinue it. Right foot ulcers secondary to devitalized tissue on the dorsal aspect of the foot but no evidence of infection. Plan: 1. Discontinue IV vancomycin. 2. Continue wound care. 01/31/17 18:52 Subjective: Patient is resting in his hospital bed his banking services officer is at bedside. He is sleeping. Did not awaken. No reports of problem from the banking services officer. Objective: Vancomycin Vital Signs Temp Pulse Resp BP Pulse Ox 36.8 C 63 18 108/57 L 94 01/31/17 12:00 01/31/17 12:00 01/31/17 12:00 01/31/17 12:00 01/31/17 12:00 Laboratory Results 01/31/17 04:17 01/31/17 04:17 01/30/17 01/31/17 02/01/17 05:59 05:59 05:59 Intake Total 2663 2427 Output Total 550 675 200 Balance -550 19877 - Physical Exam General Appearance: WD/WN, no apparent distress, non-toxic Respiratory: lungs clear, normal breath sounds, No respiratory distress Cardiac/Chest: regular rate, rhythm, No tachycardia Extremities: non-tender, No normal inspection (Left lower extremity status post BKA.) ICD10 Worksheet Patient Problems: Problems Problem Status Onset Acute leg pain Acute Cellulitis Acute Dehydration Acute Hypokalemia Acute Renal failure (ARF), acute on chronic Acute COPD (chronic obstructive pulmonary disease) Chronic 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
--- NOTE | 2017-01-31 16:54 | CPEKG ---
Heart Rate: 62 RR Interval: 968 P-R Interval: 164 QRSD Interval: 114 QT Interval: 444 QTC Interval: 451 P Narvon: 80 QRS Narvon: -64 T Wave Narvon: 72 EKG Severity - ABNORMAL ECG - EKG Impression: SINUS RHYTHM EKG Impression: ATRIAL PREMATURE COMPLEX EKG Impression: LEFT ATRIAL ABNORMALITY EKG Impression: INCOMPLETE LEFT BUNDLE BRANCH BLOCK EKG Impression: ANTERIOR Q WAVES, POSSIBLY DUE TO ILBBB Electronically Signed By: José Luis Walker 01-Feb-2017 18:44:18
[2017-01-31] MEDS ORDERED: NS 1,000 ML IV SCH ×2 (17:00→23:30)
[2017-01-31] MEDS ORDERED: NS 1,000 ML IV ONE ×2 (17:00→20:51)
[2017-01-31 17:19] LABS: % IMMATURE GRANULYOCYTES 0.6 % (0.0-1.1); ABSOLUTE IMMATURE GRANULOCYTES 0.06 10^3/uL (0.00-0.10); ADD DIFF? NO; ADD MORPH? NO; ADD SCAN? NO; ATYPICAL LYMPHOCYTE FLAG 10 (0-99); FRAGMENT RBC FLAG 0 (0-99); HEMATOCRIT 27.5 % (40.0-51.0); HEMOGLOBIN 8.7 g/dL (13.7-17.5); LEFT SHIFT FLG 10 (0-99); LIPEMIA HEMOLYSIS FLAG 80 (0-99); MEAN CELL HEMOGLOBIN CONCENTR. 31.6 g/dL (32.4-36.7); MEAN CELL VOLUME 97.9 fL (81.5-99.8); PLATELET CLUMPS FLAG 0 (0-99); PLATELET COUNT 218 10^3/uL (150-400); RED BLOOD CELL COUNT 2.81 10^6/uL (4.40-6.38); RED CELL DISTRIBUTION WIDTH 15.9 % (11.5-15.2)
[2017-01-31 17:36] LABS: ANION GAP 10 mEq/L (8-16); CALCIUM 7.9 mg/dL (8.5-10.4); CARBON DIOXIDE 19 mEq/l (22-31); CHLORIDE 118 mEq/L (97-110); CREATININE 1.1 mg/dL (0.7-1.3); GLOMERULAR FILTRATION RATE > 60; GLUCOSE 116 mg/dL (70-100); POTASSIUM 3.4 mEq/L (3.5-5.2); SODIUM 147 mEq/L (134-144)
[2017-01-31 17:47] LABS: TROPONIN I 0.029 ng/mL (0.000-0.034)
[2017-01-31] MEDS ORDERED: ALTEPLASE 2 MG VIAL IVP PRN (18:08)
[2017-01-31] MEDS: ASPIRIN 81 MG CHEWABLE TAB PO SCH (18:10)
[2017-01-31] MEDS ORDERED: PROTOCOL POTASSIUM 1 DOSE MISC PRN (18:11)
[2017-01-31] MEDS ORDERED: NOREPINEPHRINE/NS 500 ML IV SCH (18:30)
[2017-01-31 18:56] LABS: POTASSIUM 3.6 mEq/L (3.5-5.2)
[2017-01-31] MEDS ORDERED: IOPAMIDOL (ISOVUE 370) 100 ML BTL IV ONE (19:26)
[2017-01-31] MEDS ORDERED: NS BOLUS 1000 ML (Wide open) IV ONE (19:30)
[2017-01-31] MEDS ORDERED: POTASSIUM CL 10 MEQ TAB PO ONE (20:45)
[2017-01-31] MEDS ORDERED: HEPARIN 10,000 UNIT/10 ML MDV IVP ONE (21:00)
--- NOTE | 2017-01-31 21:37 | HOSPPROG ---
Hospitalist Progress Note Assessment/Plan: Rapid response called for acute hypotension and hypoxia. Patient with minimal complaints on 3E, nursing noted VS change. 88% 6L and SBP 70s A+O x 3, non-toxic appearing Lungs CTA bilateral CVS RRR abd soft/NT ext no edema Transfer to SDU CTA chest - positive small PE - CT reviewed with Dr. King Multiple fluid bolus given - still low BP NICOM still shows fluid responsive No signs suggestive of sepsis - BC sent Trop/EKG unchanged PICC line place - starting Levophed IV heparin for PE - watch BKA site closely ECHO in am - but given low volume PE doubt significant RV strain Adrenal adenoma - check aparna stim test in am CC time 45 minutes Objective: Vital Signs Temp Pulse Resp BP Pulse Ox 37 C 60 14 95/80 L 96 01/31/17 20:57 01/31/17 21:19 01/31/17 20:57 01/31/17 21:19 01/31/17 20:57 Laboratory Results 01/31/17 17:01 01/31/17 18:30 01/30/17 01/31/17 02/01/17 05:59 05:59 05:59 Intake Total 2663 2427 Output Total 550 675 450 Balance -550 1987 1976 PT 15.6 SEC (12.0-15.0) H 01/30/17 04:14 INR 1.24 (0.83-1.16) H 01/30/17 04:14 ICD10 Worksheet Patient Problems: Problems Problem Status Onset Acute leg pain Acute Cellulitis Acute Dehydration Acute Hypokalemia Acute Renal failure (ARF), acute on chronic Acute COPD (chronic obstructive pulmonary disease) Chronic 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
[2017-01-31] MEDS: HEPARIN/DEXTROSE 500 ML IV SCH (22:04)
[2017-01-31] MEDS: NIACIN ER 500 MG TAB.ER PO SCH (22:06)
[2017-01-31 22:25] LABS: % IMMATURE GRANULYOCYTES 0.7 % (0.0-1.1); ABSOLUTE IMMATURE GRANULOCYTES 0.08 10^3/uL (0.00-0.10); ADD DIFF? NO; ADD MORPH? NO; ADD SCAN? NO; ATYPICAL LYMPHOCYTE FLAG 10 (0-99); FRAGMENT RBC FLAG 0 (0-99); HEMATOCRIT 27.3 % (40.0-51.0); HEMOGLOBIN 8.6 g/dL (13.7-17.5); LEFT SHIFT FLG 20 (0-99); LIPEMIA HEMOLYSIS FLAG 80 (0-99); MEAN CELL HEMOGLOBIN 30.9 pg (27.9-34.1); MEAN CELL HEMOGLOBIN CONCENTR. 31.5 g/dL (32.4-36.7); MEAN CELL VOLUME 98.2 fL (81.5-99.8); MEAN PLATELET VOLUME 9.7 fL (8.7-11.7); PLATELET CLUMPS FLAG 0 (0-99); PLATELET COUNT 206 10^3/uL (150-400); RED BLOOD CELL COUNT 2.78 10^6/uL (4.40-6.38); RED CELL DISTRIBUTION WIDTH 15.9 % (11.5-15.2)
[2017-01-31 22:44] LABS: INR 1.41 (0.83-1.16); PROTIME(PATIENT) 17.2 SEC (12.0-15.0)
[2017-01-31 23:44] LABS: APTT > 250.0 SEC (23.0-38.0)
[2017-02-01 04:22] LABS: % IMMATURE GRANULYOCYTES 0.8 % (0.0-1.1); ABSOLUTE IMMATURE GRANULOCYTES 0.08 10^3/uL (0.00-0.10); ADD DIFF? NO; ADD MORPH? NO; ADD SCAN? NO; ATYPICAL LYMPHOCYTE FLAG 10 (0-99); FRAGMENT RBC FLAG 0 (0-99); HEMATOCRIT 25.9 % (40.0-51.0); HEMOGLOBIN 8.1 g/dL (13.7-17.5); LEFT SHIFT FLG 10 (0-99); LIPEMIA HEMOLYSIS FLAG 80 (0-99); MEAN CELL HEMOGLOBIN 30.9 pg (27.9-34.1); MEAN CELL HEMOGLOBIN CONCENTR. 31.3 g/dL (32.4-36.7); MEAN CELL VOLUME 98.9 fL (81.5-99.8); MEAN PLATELET VOLUME 10.1 fL (8.7-11.7); PLATELET CLUMPS FLAG 0 (0-99); PLATELET COUNT 206 10^3/uL (150-400); RED BLOOD CELL COUNT 2.62 10^6/uL (4.40-6.38); RED CELL DISTRIBUTION WIDTH 16.2 % (11.5-15.2)
[2017-02-01 05:13] LABS: ANION GAP 8 mEq/L (8-16); CALCIUM 7.6 mg/dL (8.5-10.4); CARBON DIOXIDE 17 mEq/l (22-31); CHLORIDE 122 mEq/L (97-110); GLOMERULAR FILTRATION RATE > 60; GLUCOSE 91 mg/dL (70-100); POTASSIUM 3.4 mEq/L (3.5-5.2); SODIUM 147 mEq/L (134-144)
[2017-02-01] MEDS: ACETAMINOPHEN 500 MG TAB PO SCH ×3 (05:17→21:55)
[2017-02-01] MEDS: POTASSIUM Cl (KCl) 50 ML IV SCH ×6 (05:38→15:17)
[2017-02-01] MEDS ORDERED: COSYNTROPIN 0.25 MG/2 ML SYRINGE IVP ONE (06:00)
--- NOTE | 2017-02-01 09:03 | HOSPPROG ---
Hospitalist Progress Note Assessment/Plan: #Provoked PE: small on CT. Heparin gtt. Echo with normal RV function, moderate pulm HTN. D/w surgery if any further procedures expected. If not, can start oral AC #Acute on chronic hypoxic resp failure: due to PE. Oxygen needs minimal now #Chronic wound infections: POD #2 left BKA. Right foot debrided. Treated today with maggot larvae. Abx discontinued #Hypotension: required Levophed, now off. Hold BB and CCB. #Compensated diastolic HF: noted on TTE today #Hypokalemia: repleted #Hypernatremia: add D5w #Leukocytosis: resolved #JODIE: 1.7 at admit due to dehydration. Resolved #COPD: no e/o exacerbation #BPH: Flomax #DVT ppx: heparin gtt #Disp: warrants inpatient admission with foot infections, PE. Requires IV heparin, aggressive wound care Subjective: No CP or SOB. Pain in left leg and right foot Objective: Vital Signs Temp Pulse Resp BP Pulse Ox 36.6 C 62 15 93/61 L 100 02/01/17 07:00 02/01/17 07:00 02/01/17 07:00 02/01/17 07:00 02/01/17 07:00 Laboratory Results 02/01/17 04:00 02/01/17 04:00 01/31/17 02/01/17 02/02/17 05:59 05:59 05:59 Intake Total 2663 6842 Output Total 675 875 Balance 1988 5967 PT 17.2 SEC (12.0-15.0) H 01/31/17 22:15 INR 1.41 (0.83-1.16) H 01/31/17 22:15 - Physical Exam Constitutional: chronically ill appearing Eyes: PERRL Ears, Nose, Mouth, Throat: moist mucous membranes Cardiovascular: regular rate and rhythym Respiratory: reduced air movement Gastrointestinal: normoactive bowel sounds Musculoskeletal: other (Left BKA, right foot wrapped with serosanginous drainage ) Psychiatric: flat affect ICD10 Worksheet Patient Problems: Problems Problem Status Onset 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
[2017-02-01] MEDS: ASPIRIN 81 MG CHEWABLE TAB PO SCH (09:16)
[2017-02-01] MEDS: TAMSULOSIN HCL 0.4 MG CAP PO SCH (09:16)
[2017-02-01] MEDS: FAMOTIDINE 20 MG TAB PO SCH ×2 (09:17→21:54)
[2017-02-01] MEDS: VENLAFAXINE XR 75 MG CAP PO SCH (09:17)
[2017-02-01] MEDS: GABAPENTIN 400 MG CAP PO SCH ×3 (09:17→21:54)
[2017-02-01] MEDS: buPROPion SR 150 MG TAB PO SCH ×2 (09:17→21:54)
[2017-02-01] MEDS: OMEGA-3 FATTY ACIDS 1,000 MG CAP PO SCH (09:17)
[2017-02-01] MEDS: METOPROLOL SUCCINATE XR 25 MG TAB PO SCH (09:18)
--- NOTE | 2017-02-01 11:30 | WOCRNPDOC ---
WOCRN Advanced Assessment Note - Skin Integrity Problem, Advanced Assess Right Foot Dressing Type: Hydrofera Blue Ready, Kerlix Dressing Description: Clean/Dry, Intact Exudate Amount: Scant Exudate Characteristic(s): Serosanguinous Integumentary Issue Intervention: Dressing Changed, Dressing Initialed & Dated, Biologic Debridement Initiated/Continued Go Wound Tissue: Erythema, Shiny, Thin, Anhidrotic, Hair Loss, Painful/Tender Go Wound Swelling: Mild Wound Bed Color: Red, Yellow, White Wound Bed Constitution: Granulation Tissue (5%), Adhered Slough (95%) Wound Edges: Attached Site Odor: None Skin Integrity Problem Comment: Cleaned area with ns and mechanically debrided to patient pain tolerance. A "dam" of foam was built around the dressing to try and keep the packet of larva from moving around and getting dislodged. The dam was secured with mastisol and with medipore tape. Patient declined use of skin prep go wound. Larva BB 300 applied to wound bed. All of larvae viable on removal from sterile packaging. They were covered with x2 pieces of saline moistened gauze, one 1/2 of an ABD and a light layer of kerlix. RN Chay in room. rn patient care expectation reviewed: keep area offloaded, do not apply tape or any other dressing or appliance over the top of the foot. Make sure the larvae stay moist. Rehydrate with NS prn. Wound care will round daily and change top dressing. Information about larval therapy taped to wall and dressing change check off/schedule taped to white board. RN will round on this patient daily until Sunday when Bio bag of larvae will be removed. Student ELIAZAR Price in room for care as well.
[2017-02-01] MEDS: HEPARIN 10,000 UNIT/10 ML MDV IVP PRN (11:42)
--- NOTE | 2017-02-01 13:28 | SOAPPROG ---
SOAP Progress Note Assessment/Plan: Assessment/Plan: - POD#2 s/p L BKA, R foot debridement - Pt tx to ICU yesterday for mental status changes and new PE - Remains on hep gtt, NC supplementation as well - Stump c/d/i, was successfully fitted with protector yesterday - R foot going to get maggot treatment - 01/29/17 17:21 01/31/17 07:26 02/01/17 13:27 Subjective: Back to baseline mentally. Objective: Vital Signs Temp Pulse Resp BP Pulse Ox 36.9 C 69 18 77/54 L 92 02/01/17 13:03 02/01/17 13:03 02/01/17 13:03 02/01/17 13:03 02/01/17 13:03 Laboratory Results 02/01/17 04:00 02/01/17 04:00 01/31/17 02/01/17 02/02/17 05:59 05:59 05:59 Intake Total 2663 6842 Output Total 675 875 Balance 1988 5967 PT 17.2 SEC (12.0-15.0) H 01/31/17 22:15 INR 1.41 (0.83-1.16) H 01/31/17 22:15 ICD10 Worksheet Patient Problems: Problems Problem Status Onset Acute leg pain Acute Cellulitis Acute Dehydration Acute Hypokalemia Acute Renal failure (ARF), acute on chronic Acute COPD (chronic obstructive pulmonary disease) Chronic 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
--- NOTE | 2017-02-01 14:35 | ECHO ---
[email or web address] [address] Main: [phone] Fax: Transthoracic Echocardiogram Name: RUMA GALLEGOS MR#: [id number] Study Date: 02/01/2017 Study Time: 07:51 AM Date of : 1940 Age: 76 year(s) Height: 188 cm (74 in.) Weight: 79.38 kg (175 lb.) BSA: 2.05 m2 Gender: Male Examination: Echo Indication: Acute hypotension/small PE Image Quality: Contrast: Requested by: Maris Nunez BP: 93 mmHg/61 mmHg Heart Rate: Rhythm: Indication: Acute hypotension/small PE Procedure Staff Engine Dispatcher: Elena Quinn Reading Physician: Brandon Baer Requesting Provider: Conclusions: Normal global systolic LV function. The ejection fraction is estimated to be 65-70 %. Mild mitral valve regurgitation is present. Mild calcific aortic valve stenosis. AV max PG is 22mmHG. AV mean PG is 12mmHG.. Moderate tricuspid regurgitation is present. RVSP is 46-51mmHG.. Measurements: Chambers Valvular Assessment AV/MV Valvular Assessment TV/PV Normal Normal Normal Name Value Range Name Value Range Name Value Range Ao Marline (MM): 4.0 cm (2.2 cm-3.7 AV meanP mmHg ( - ) TR Vmax: 3.20 mm/s ( - ) cm) EARNEST (VTI): 1.4 cm ( - ) TR PGmax: 41 mmHg ( - ) IVSd (2D): 1.1 cm (0.6 cm-1.1 MV E Vmax: 1.21 m/s ( - ) syst. PAP: 51 mmHg ( - ) cm) MV A Vmax: 1.00 m/s ( - ) PV Vmax: 1.03 m/s (0.6 m/s-0.9 LVDd (2D): 4.9 cm (4.2 cm-5.9 MV E/A: 1.21 ( - ) m/s) cm) PV PGmax: 4 mmHg ( - ) LVDs (2D): 2.7 cm (2.1 cm-4 cm) LVPWd (2D): 1.0 cm (0.6 cm-1 cm) LVOTd 2.0 cm 2.0 cm mm LVEF (MOD4): 74 % (>=55 %) EF Range: 65-70 % Continued Measurements: Chambers Valvular Assessment AV/MV Valvular Assessment TV/PV Name Value Name Value Name Value Patient: RUMA GALLEGOS Study Date: 02/01/2017 Page 1 of 2 07:51 AM LADs: 4.0 cm MV E' Septal: 0.06 m/s CVP (est.): 10 mmHg LADs Lon.0 cm MV E/E' Septal: 18.80 LA Area: 23.5 cm2 MV E/E' Lateral: 15.10 Findings: Left Ventricle: Normal size left ventricle. Mild concentric LV hypertrophy. Normal global systolic LV function. The ejection fraction is estimated to be 65-70 %. No regional wall motion abnormality. Diastolic dysfunction is present. . Right Ventricle: Normal size right ventricle. Left Atrium: The left atrium is normal in size. Right Atrium: The right atrium is normal in size. Mitral Valve: The mitral valve is normal in appearance and function. Mild mitral valve regurgitation is present. Aortic Valve: There is mild thickening of the aortic cusps. Mild calcific aortic valve stenosis. AV max PG is 22mmHG. AV mean PG is 12mmHG.. Tricuspid Valve: The tricuspid valve is normal in appearance and function. Moderate tricuspid regurgitation is present. The pulmonary artery pressure is mildly increased. RVSP is 46-51mmHG.. Pulmonic Valve: The pulmonic valve is normal in appearance and function. Trivial pulmonic valve regurgitation. Aorta: The aorta is normal. Pericardium: No pericardial effusion. There is pericardial fat. (No Signature Object) Patient: RUMA GALLEGOS Study Date: 02/01/2017 Page 2 of 2 07:51 AM [id number]
--- NOTE | 2017-02-01 15:02 | GCON ---
[f rep st] CONSULTATION [facility] CONSULTATION REASON FOR ADMISSION: Hypotension and pulmonary embolus. HISTORY OF PRESENT ILLNESS: The patient is a very pleasant 76-year-old white male who was admitted o n 01/29/2017 for cellulitis. He also had acute kidney injury and has a past history of chronic obstr uctive pulmonary disease. He was admitted and begun on antibiotics. Over the course of his hospital ization, he waxed and waned. Last night he developed acute hypotension and hypoxemia CT angio at the time revealed a small pulmonary embolus. He was admitted to the intensive care unit, begun on hepar in, and given IV fluids. In discussion with the patient today, he states he feels somewhat better, h e is off all pressors, and his only complaint is right foot pain. 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 PAST SURGICAL HISTORY: Right carotid stent, total hip arthroplasty bilaterally and left whprc-ewf-xo ee amputation on 01/30/2017. ALLERGIES: Amoxicillin, guaifenesin, and clavulanate. SOCIAL HISTORY: He is a 60+ pack-year smoker and continues to smoke 2-3 packs per day. He quit [place] in 1982. He lives with his in [place] and has excellent family support. PHYSICAL EXAMINATION: VITAL SIGNS: Blood pressure is 96/75, pulse 64, respirations 18, temperature 36.6, oxygen saturation 98% on 2 L. GENERAL: He is a well-developed, elderly white male who is rest ing comfortably on supplemental oxygen. HEENT: Eyes PERRL, EOMI. Throat shows no erythema or tonsi llar hypertrophy. NECK: Supple. No cervical adenopathy. HEART: Regular rate and rhythm with a 2/ 6 systolic murmur at the left sternal border without radiation. LUNGS: Diminished breath sounds. S ignificant prolongation of the expiratory phase, but there is no wheeze. ABDOMEN: Soft, nontender. Bowel sounds present in all 4 quadrants. EXTREMITIES: Left BKA. His right foot is bandaged. LABORATORIES: White count 10.2, hemoglobin 8.1, hematocrit 25, platelet count 206. Sodium 147, potas sium 3.4, chloride 122, CO2 17, BUN 24, creatinine 1, and glucose 91. CT angiogram of the chest shows a small pulmonary embolism on the right. IMPRESSION: 1. Small pulmonary embolism. 2. Hypotension, likely secondary to hypovolemia. 3. Status post left below-knee amputation. 4. Peripheral vascular disease. 5. Chronic obstructive pulmonary disease. 6. Chronic hypoxemia. RECOMMENDATIONS: 1. Agree with heparin. He will transition soon over to oral anticoagulant. He will need 3 months, at least, of anticoagulation. 2. Frequent nebulization with both albuterol and Atrovent. 3. Wean oxygen as tolerated. 4. Continue IV fluids. 5. DVT and PE prophylaxis. 6. Stress ulcer prophylaxis. 7. Adequate pain control. /[id number]/MODL
[2017-02-01] MEDS: oxyCODONE IR 5 MG TAB PO PRN (16:22)
[2017-02-01] MEDS: HYDROmorphone HCL/NS/PF 0.4 MG/2 ML SYR IVP PRN (16:48)
[2017-02-01] MEDS: HEPARIN/DEXTROSE 500 ML IV SCH (17:11)
--- NOTE | 2017-02-01 18:00 | PCMIDPN ---
Assessment/Plan: Assessment: Patient known from prior visit at [facility] earlier this year. He had bilateral chronic lower extremity dorsal feet ulcerations. Poor microvascular circulation. He underwent a left vifkd-vhq-hfmm amputation during this visit. He was covered with IV vancomycin prior to this surgery for possible left lower extremity cellulitis. This is not needed presently. We will discontinue it. Right foot ulcers secondary to devitalized tissue on the dorsal aspect of the foot but no evidence of infection. Plan: Will sign off at present. Please call with future questions. 01/31/17 18:52 02/01/17 17:59 Subjective: Patient spent the better part of the day in the ICU secondary to increased respiratory distress and findings of small pulmonary emboli on CT scan. Appears clinically stable at present. Objective: No antibiotics Vital Signs Temp Pulse Resp BP Pulse Ox 36.9 C 69 18 83/55 L 93 02/01/17 15:14 02/01/17 15:14 02/01/17 15:14 02/01/17 15:14 02/01/17 15:14 Laboratory Results 02/01/17 04:00 01/31/17 02/01/17 02/02/17 05:59 05:59 05:59 Intake Total 8593 6842 Output Total 675 875 Balance 1988 5967 - Physical Exam General Appearance: WD/WN, alert, no apparent distress ICD10 Worksheet Patient Problems: Problems Problem Status Onset Acute leg pain Acute Cellulitis Acute Dehydration Acute Hypokalemia Acute Renal failure (ARF), acute on chronic Acute COPD (chronic obstructive pulmonary disease) Chronic 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
[2017-02-01 18:02] LABS: POTASSIUM 3.6 mEq/L (3.5-5.2)
[2017-02-01] MEDS ORDERED: NS 1,000 ML IV SCH (21:15)
[2017-02-01] MEDS ORDERED: POTASSIUM CL 10 MEQ TAB PO ONE (21:25)
[2017-02-01] MEDS: D5W 1,000 ML IV SCH (21:36)
[2017-02-01] MEDS: NIACIN ER 500 MG TAB.ER PO SCH (21:54)
[2017-02-02] MEDS: oxyCODONE IR 5 MG TAB PO PRN ×4 (01:51→22:02)
[2017-02-02] MEDS: HEPARIN 10,000 UNIT/10 ML MDV IVP PRN (04:12)
[2017-02-02] MEDS: HYDROmorphone HCL/NS/PF 0.4 MG/2 ML SYR IVP PRN ×3 (04:20→23:00)
[2017-02-02 05:07] LABS: HEMATOCRIT 27.1 % (40.0-51.0); HEMOGLOBIN 8.3 g/dL (13.7-17.5); MEAN CELL HEMOGLOBIN 30.4 pg (27.9-34.1); MEAN CELL HEMOGLOBIN CONCENTR. 30.6 g/dL (32.4-36.7); MEAN CELL VOLUME 99.3 fL (81.5-99.8); RED BLOOD CELL COUNT 2.73 10^6/uL (4.40-6.38); RED CELL DISTRIBUTION WIDTH 16.4 % (11.5-15.2)
[2017-02-02] MEDS: ACETAMINOPHEN 500 MG TAB PO SCH ×3 (05:42→21:14)
[2017-02-02 05:56] LABS: ANION GAP 8 mEq/L (8-16); CALCIUM 8.4 mg/dL (8.5-10.4); CARBON DIOXIDE 19 mEq/l (22-31); CHLORIDE 124 mEq/L (97-110); GLOMERULAR FILTRATION RATE > 60; GLUCOSE 107 mg/dL (70-100); POTASSIUM 3.5 mEq/L (3.5-5.2); SODIUM 151 mEq/L (134-144)
[2017-02-02] MEDS ORDERED: POTASSIUM CL 10 MEQ TAB PO ONE (07:51)
[2017-02-02] MEDS: D5W 1,000 ML IV SCH (08:22)
--- NOTE | 2017-02-02 08:38 | SOAPPROG ---
SOAP Progress Note Assessment/Plan: Assessment/Plan: - POD#3 s/p L BKA, R foot debridement - stump looks great, protector in place. VAC holding suction with minimal output - R foot with maggot treatment, will re-eval today - can WB as tolerated to R foot, - Keep VAC over the weekend. 01/29/17 17:21 01/31/17 07:26 02/01/17 13:27 02/02/17 08:37 Subjective: sleepy but mentally back at baseline Objective: Vital Signs Temp Pulse Resp BP Pulse Ox 36.6 C 67 12 89/60 L 94 02/02/17 03:58 02/02/17 03:58 02/02/17 03:58 02/02/17 03:58 02/02/17 03:58 Laboratory Results 02/02/17 04:28 02/02/17 04:28 02/01/17 02/02/17 02/03/17 05:59 05:59 05:59 Intake Total 6842 400 Output Total 875 400 Balance 5967 0 PT 17.2 SEC (12.0-15.0) H 01/31/17 22:15 INR 1.41 (0.83-1.16) H 01/31/17 22:15 ICD10 Worksheet Patient Problems: Problems Problem Status Onset Acute leg pain Acute Cellulitis Acute Dehydration Acute Hypokalemia Acute Renal failure (ARF), acute on chronic Acute COPD (chronic obstructive pulmonary disease) Chronic 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
[2017-02-02] MEDS: OMEGA-3 FATTY ACIDS 1,000 MG CAP PO SCH (09:11)
[2017-02-02] MEDS: VENLAFAXINE XR 75 MG CAP PO SCH (09:11)
[2017-02-02] MEDS: GABAPENTIN 400 MG CAP PO SCH ×3 (09:11→21:14)
[2017-02-02] MEDS: FAMOTIDINE 20 MG TAB PO SCH ×2 (09:12→21:14)
[2017-02-02] MEDS: METOPROLOL SUCCINATE XR 25 MG TAB PO SCH (09:12)
[2017-02-02] MEDS: ASPIRIN 81 MG CHEWABLE TAB PO SCH (09:12)
[2017-02-02] MEDS: TAMSULOSIN HCL 0.4 MG CAP PO SCH (09:12)
[2017-02-02] MEDS: buPROPion SR 150 MG TAB PO SCH ×2 (09:14→21:13)
--- NOTE | 2017-02-02 13:35 | WOCRNPDOC ---
WOCRN Advanced Assessment Note - Skin Integrity Problem, Advanced Assess Right Foot Dressing Type: ABD Pad, Gauze, Kerlix, Other Other Dressing Type: Foam bolster, larval pouch Dressing Description: Shadowed Exudate Amount: Moderate Exudate Color: Brown, Reddish/Yellow Exudate Characteristic(s): Serosanguinous Integumentary Issue Intervention: Dressing Reinforced, Visualized Under Dressing , Biologic Debridement Initiated/Continued Wound Bed Color: Black, Red, Yellow Wound Bed Constitution: Red/Buckley - Non Granular Tissue, Mixed Loose & Adhered Slough/Eschar Site Odor: Slight Skin Integrity Problem Comment: Removed existing larval therapy dressing from wound to assess efficacy and to monitor for pain and increased bleeding. There are two small patches of smooth/non-graulating tissue under where the maggots were concentrated, which is a significant improvement from yesterday when wound was almost completely slough-filled. Wound is now 70% necrosis, 30% non- granulating smooth tissue. There is no significant bleeding in the wound. Per patient, foot has been painful since larval therapy initiated yesterday. His nurse today says that he has been tolerating it well this morning, not asking for additional pain meds. I assured him that he could have nursing remove dressing at any time, but also showed him a photo of the wound's progress. He agreed to keep the larval therapy in place for at least another day. I also reminded him to alert his nurse when he needs pain medication, and discussed w/ tile ditcher Roslyn the need for ongoing pain managment. Wound RN will follow up with patient this weekend to assess.
--- NOTE | 2017-02-02 15:31 | ASMTCMCOM ---
CM Note LUIS Note Notes: CM spoke with Minor from [facility]. They have accepted pt after he completes maggot treatment. Anticipate this may be sometime next week. Date Signed: 02/02/2017 03:30 PM Electronically Signed By:RODNEY Mcmullen
--- NOTE | 2017-02-02 15:34 | HOSPPROG ---
Hospitalist Progress Note Assessment/Plan: DIAGNOSES: # Provoked PE: small on CT. Heparin gtt. Echo with normal RV function, moderate pulm HTN. D/w surgery if any further procedures expected. If not, can start oral AC # acute encephalopathy, a bit worse today than yesterday, multifactorial but dehydration and hypernatremia may have major role # Acute on chronic hypoxic resp failure: due to PE. 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 Abx discontinued # Hypotension: required Levophed, now off. - BB and CCB currently held and blood pressures remain low # dehydration and hypernatremia -current receiving D5 intravenously, sodium rising any still has an appearance of dehydration, has poor oral intake # JODIE: 1.7 at admit due to dehydration. Resolved back to baseline # COPD: no e/o exacerbation # Compensated diastolic HF: noted on TTE today # BPH: Lexi Had long discussion with the today reviewing all of his multiple acute medical issues, their current status and current management and monitoring plans , prognosis for recovery, and other questions that she had. Total visit today approximately 45 minutes in duration greater than 50% of that spent in counseling with his PLANS: -continue free water intravenously -follow sodium and fluid balance closely -avoid sedating and GROCERY SHOPPER active medicines as able -continue IV heparin for the moment, plan on probably Eliquis therapy at discharge -continue wound care currently with maggots on the right foot -continue to hold antihypertensive, continue rebleeding volume replacement and follow blood pressure and renal function closely SUBJECTIVE: Patient states he is not having any pain or discomfort but really to groggy and disoriented to answer questions about symptoms beyond that His says he looks more groggy today than yesterday and less interactive. She says he did have a banana for her but does not think he has been eating much else OBJECTIVE Vitals reviewed: Blood pressures remained somewhat low, otherwise stable without fever Exam: Quite somnolent, arousable and with significantly decreased interaction and minimal conversational abilities at the moment, seems a bit disoriented skin warm dry color ok but skin turgor is poor other than in his right leg with some chronic edema resps not labored lungs clear BSs heart regular abd soft nondistended nontender, bowel sounds present limbs right foot in dressing with maggots at currently appropriately wrapped, left foot in dressing and brace looks okay, wounds not visualized by me today iv site ok Laboratory data: Sodium now up to 151 Labs otherwise stable Objective: Vital Signs Temp Pulse Resp BP Pulse Ox 36.9 C 65 16 93/59 L 96 02/02/17 12:00 02/02/17 12:00 02/02/17 12:00 02/02/17 12:00 02/02/17 12:00 Laboratory Results 02/02/17 04:28 02/02/17 04:28 02/01/17 02/02/17 02/03/17 06:59 06:59 06:59 Intake Total 4915 400 120 Output Total 875 400 100 Balance 4040 0 20 PT 17.2 SEC (12.0-15.0) H 01/31/17 22:15 INR 1.41 (0.83-1.16) H 01/31/17 22:15 - Time Spent With Patient Time Spent with Patient: greater than 35 minutes Time Spent with Patient: Greater than 35 minutes spent on this patients care, greater than 50% of time spent counseling, educating, and coordinating care regarding the above mentioned plan. 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
[2017-02-02] MEDS: NIACIN ER 500 MG TAB.ER PO SCH (21:13)
[2017-02-03] MEDS: D5W 1,000 ML IV SCH ×2 (03:16→13:54)
[2017-02-03] MEDS: HYDROmorphone HCL/NS/PF 0.4 MG/2 ML SYR IVP PRN (03:36)
[2017-02-03 03:57] LABS: ABSOLUTE NRBC COUNT 0.05 10^3/uL (0-0.01); ADD DIFF? YES; ADD MORPH? NO; ADD SCAN? NO; ATYPICAL LYMPHOCYTE FLAG 0 (0-99); FRAGMENT RBC FLAG 0 (0-99); HEMATOCRIT 25.6 % (40.0-51.0); HEMOGLOBIN 8.1 g/dL (13.7-17.5); LEFT SHIFT FLG 30 (0-99); LIPEMIA HEMOLYSIS FLAG 80 (0-99); MEAN CELL HEMOGLOBIN CONCENTR. 31.6 g/dL (32.4-36.7); MEAN CELL VOLUME 98.1 fL (81.5-99.8); MEAN PLATELET VOLUME 10.1 fL (8.7-11.7); NRBC-AUTO% 0.4 % (0.0-0.2); PLATELET CLUMPS FLAG 0 (0-99); PLATELET COUNT 209 10^3/uL (150-400); RED BLOOD CELL COUNT 2.61 10^6/uL (4.40-6.38); RED CELL DISTRIBUTION WIDTH 16.6 % (11.5-15.2)
[2017-02-03 04:17] LABS: ALANINE AMINOTRANSFERASE 38 IU/L (21-72); ALBUMIN 2.4 g/dL (3.5-5.0); ALKALINE PHOSPHATASE 51 IU/L (38-126); ANION GAP 8 mEq/L (8-16); ASPARTATE AMINOTRANSFERASE 24 IU/L (17-59); BILIRUBIN,TOTAL 0.1 mg/dL (0.1-1.4); BILIRUBIN-UNCONJUGATED 0.1 mg/dL (0.0-1.1); CALCIUM 8.4 mg/dL (8.5-10.4); CARBON DIOXIDE 22 mEq/l (22-31); CHLORIDE 115 mEq/L (97-110); GLOMERULAR FILTRATION RATE > 60; GLUCOSE 86 mg/dL (70-100); POTASSIUM 4.4 mEq/L (3.5-5.2); SODIUM 145 mEq/L (134-144); TOTAL PROTEIN 4.9 g/dL (6.3-8.2)
[2017-02-03 04:51] LABS: MACROCYTES 1+; PLATELET ESTIMATE ADEQUATE (ADEQ)
[2017-02-03 04:52] LABS: ROULEAUX PRESENT
[2017-02-03] MEDS: ACETAMINOPHEN 500 MG TAB PO SCH ×3 (05:08→21:36)
[2017-02-03] MEDS: HEPARIN/DEXTROSE 500 ML IV SCH (07:38)
[2017-02-03] MEDS: oxyCODONE IR 5 MG TAB PO PRN (10:00)
[2017-02-03] MEDS: OMEGA-3 FATTY ACIDS 1,000 MG CAP PO SCH (10:01)
[2017-02-03] MEDS: METOPROLOL SUCCINATE XR 25 MG TAB PO SCH (10:02)
[2017-02-03] MEDS: GABAPENTIN 400 MG CAP PO SCH ×3 (10:04→21:35)
[2017-02-03] MEDS: FAMOTIDINE 20 MG TAB PO SCH ×2 (10:04→21:36)
[2017-02-03] MEDS: buPROPion SR 150 MG TAB PO SCH ×2 (10:05→21:35)
[2017-02-03] MEDS: TAMSULOSIN HCL 0.4 MG CAP PO SCH (10:05)
[2017-02-03] MEDS: VENLAFAXINE XR 75 MG CAP PO SCH (10:06)
[2017-02-03] MEDS: ASPIRIN 81 MG CHEWABLE TAB PO SCH (10:07)
[2017-02-03] MEDS: HEPARIN 10,000 UNIT/10 ML MDV IVP PRN ×2 (11:15→17:53)
--- NOTE | 2017-02-03 11:42 | SOAPPROG ---
SOAP Progress Note Assessment/Plan: Assessment/Plan: - POD#4 s/p L BKA, R foot debridement - stump cdi, VAC with minimal output. Planning to remove Sunday - R foot with maggot treatment, will be evaluated today per wound care - on hep gtt for PE - ok to WBAT to R foot - Needs to wear stump protector at all times 01/29/17 17:21 01/31/17 07:26 02/01/17 13:27 02/02/17 08:37 02/03/17 11:41 Subjective: pain controlled. eating breakfast Objective: Vital Signs Temp Pulse Resp BP Pulse Ox 36.7 C 69 14 88/67 L 98 02/03/17 08:00 02/03/17 10:02 02/03/17 08:00 02/03/17 09:20 02/03/17 08:00 Laboratory Results 02/03/17 03:40 02/03/17 03:40 02/02/17 02/03/17 02/04/17 05:59 05:59 05:59 Intake Total 400 1573 Output Total 400 501 Balance 0 1072 PT 17.2 SEC (12.0-15.0) H 01/31/17 22:15 INR 1.41 (0.83-1.16) H 01/31/17 22:15 ICD10 Worksheet Patient Problems: Problems Problem Status Onset Acute leg pain Acute Cellulitis Acute Dehydration Acute Hypokalemia Acute Renal failure (ARF), acute on chronic Acute COPD (chronic obstructive pulmonary disease) Chronic 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
--- NOTE | 2017-02-03 13:57 | WOCRNPDOC ---
WOCRN Advanced Assessment Note - Skin Integrity Problem, Advanced Assess Right Foot Dressing Type: Abdominal Pads, Gauze, Kerlix, Larval Therapy Dressing Description: Intact, Shadowed Exudate Amount: Moderate Exudate Color: Red, Brown Integumentary Issue Intervention: Dressing Changed, Biologic Debridement Initiated/Continued Arlyn Wound Tissue: Erythema, Macerated Wound Bed Color: Red, Yellow Site Odor: Moderate, Musky Skin Integrity Problem Comment: Multiple, multiple layers of kerlix removed and larvae checked. 90% of larvae , likely suffocated from so many layers of kerlix and the pressure of those layers. The larvae were not removed in hopes that the remaining few will debride a bit more. They were covered with fresh moist gauze and then ABD and 1/4 of a kerlix dressing. Tarah RN not available in room but SPECIAL WARFARE OPERATOR in room and was updated. Staff charge Sidney was also updated as was Ericka PEREA. Patient's was in room and both her and the patient are aware of situation and plan. Wound RN will round again tomorrow to check the larvae. If they have all they will be removed tomorrow. It is possible to reorder larvae Sunday for a Sunday application if the patient is going to remain inpatient until next Sunday or Sunday. Will revisit that possibility on Sunday.
--- NOTE | 2017-02-03 17:52 | HOSPPROG ---
Hospitalist Progress Note Assessment/Plan: DIAGNOSES: # Provoked PE: small on CT. Heparin gtt. Echo with normal RV function, moderate pulm HTN. D/w surgery if any further procedures expected. If not, can start oral AC # acute encephalopathy, quite a bit better today than yesterday, multifactorial but dehydration and hypernatremia may have major role; others include dementia, medications, stress of surgery, changing to different hospital room this is 4th room, etc # Acute on chronic hypoxic resp failure: due to PE. 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 Abx discontinued # Hypotension: required Levophed, now off. - BB and CCB currently held and blood pressures remain low -would consider whether there might be adrenal insufficiency or some other specific cause of this hypotension; cause of current low blood pressures off of his usual medicines is unknown at this time; may have some intravascular depletion but overall his body fluid status is hypervolemic # dehydration and hypernatremia -sodium notably better today and seems volume replete # JODIE: Resolved back to baseline # COPD: no e/o exacerbation # Compensated diastolic HF: noted on TTE today # BPH: Flomax PLANS: -will stop the free water intravenously -follow sodium and fluid balance closely -avoid sedating and SPRING REPAIRER HELPER HAND active medicines as able -continue IV heparin for the moment, plan on probably Eliquis therapy at discharge -continue wound care currently with maggots on the right foot -continue to hold antihypertensive, continue rebleeding volume replacement and follow blood pressure and renal function closely -will check a Cortrosyn stim test in the morning SUBJECTIVE: Much more awake today eating much better. He denies any pain or discomfort other than a little bit of pain pain at the toes on his right foot No fever symptoms OBJECTIVE Vitals reviewed: Blood pressures remained somewhat low, otherwise stable without fever Exam: Today much more awake, very interactive and conversant, better oriented but still with some intermittent disorientation and delusions skin warm dry color ok but skin turgor is poor other than in his right leg with some chronic edema resps not labored lungs clear BSs heart regular abd soft nondistended nontender, bowel sounds present limbs right foot in dressing with maggots at currently appropriately wrapped, left foot in dressing and brace looks okay, wounds not visualized by me today iv site ok Laboratory data: Sodium now back down to 145 Labs otherwise stable Objective: Vital Signs Temp Pulse Resp BP Pulse Ox 36.7 C 66 14 96/58 L 91 L 02/03/17 15:53 02/03/17 15:53 02/03/17 15:53 02/03/17 15:53 02/03/17 15:53 Laboratory Results 02/03/17 03:40 02/03/17 03:40 02/02/17 02/03/17 02/04/17 06:59 06:59 06:59 Intake Total 400 1573 Output Total 400 501 Balance 0 1072 PT 17.2 SEC (12.0-15.0) H 01/31/17 22:15 INR 1.41 (0.83-1.16) H 01/31/17 22:15 ICD10 Worksheet Patient Problems: Problems Problem Status Onset Acute leg pain Acute Cellulitis Acute Dehydration Acute Hypokalemia Acute Renal failure (ARF), acute on chronic Acute COPD (chronic obstructive pulmonary disease) Chronic 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
[2017-02-03] MEDS: NIACIN ER 500 MG TAB.ER PO SCH (21:35)
[2017-02-04] MEDS: HEPARIN 10,000 UNIT/10 ML MDV IVP PRN ×2 (00:58→07:29)
[2017-02-04] MEDS: ERGOCALCIFEROL 50,000 I.UNIT CAP PO SCH (05:35)
[2017-02-04] MEDS: ACETAMINOPHEN 500 MG TAB PO SCH ×3 (05:35→21:54)
[2017-02-04] MEDS ORDERED: COSYNTROPIN 0.25 MG/2 ML SYRINGE IVP ONE (06:00)
[2017-02-04] MEDS: oxyCODONE IR 5 MG TAB PO PRN ×2 (06:04→22:34)
[2017-02-04 06:07] LABS: ANION GAP 6 mEq/L (8-16); CALCIUM 8.8 mg/dL (8.5-10.4); CARBON DIOXIDE 23 mEq/l (22-31); CHLORIDE 114 mEq/L (97-110); CREATININE 0.9 mg/dL (0.7-1.3); GLOMERULAR FILTRATION RATE > 60; GLUCOSE 96 mg/dL (70-100); POTASSIUM 4.1 mEq/L (3.5-5.2); SODIUM 143 mEq/L (134-144)
[2017-02-04 06:29] LABS: CORTISOL-AM 14.1 ug/dL (4.5-22.7)
[2017-02-04] MEDS: buPROPion SR 150 MG TAB PO SCH ×2 (09:04→21:54)
[2017-02-04] MEDS: TAMSULOSIN HCL 0.4 MG CAP PO SCH (09:04)
[2017-02-04] MEDS: FAMOTIDINE 20 MG TAB PO SCH ×2 (09:04→21:54)
[2017-02-04] MEDS: VENLAFAXINE XR 75 MG CAP PO SCH (09:04)
[2017-02-04] MEDS: OMEGA-3 FATTY ACIDS 1,000 MG CAP PO SCH (09:04)
[2017-02-04] MEDS: ASPIRIN 81 MG CHEWABLE TAB PO SCH (09:05)
[2017-02-04] MEDS: FERROUS SULFATE 325 MG TAB PO SCH (09:05)
[2017-02-04] MEDS: METOPROLOL SUCCINATE XR 25 MG TAB PO SCH (09:05)
[2017-02-04] MEDS: GABAPENTIN 400 MG CAP PO SCH ×3 (09:05→21:54)
--- NOTE | 2017-02-04 09:14 | ASMTCMCOM ---
CM Note CM Note Notes: Chart reviewed. Per therapies SNF is appropriate upon discharge. Powerback after biological therapy is complete. CM to follow. Date Signed: 02/04/2017 09:13 AM Electronically Signed By:Karen Amaro RN
[2017-02-04] MEDS: HEPARIN/DEXTROSE 500 ML IV SCH (11:49)
--- NOTE | 2017-02-04 14:50 | SOAPPROG ---
SOAP Progress Note Assessment/Plan: Assessment/Plan: - POD#5 s/p L BKA, R foot debridement - stump cdi, VAC with minimal output. Planning to remove Sunday - R foot with maggot treatment, will be evaluated today per wound care - on hep gtt for PE - ok to WBAT to R foot - Needs to wear stump protector at all times 01/29/17 17:21 01/31/17 07:26 02/01/17 13:27 02/02/17 08:37 02/03/17 11:41 02/04/17 14:50 Subjective: sleepy Objective: Vital Signs Temp Pulse Resp BP Pulse Ox 36.8 C 56 L 12 101/71 92 02/04/17 11:16 02/04/17 11:16 02/04/17 11:16 02/04/17 11:16 02/04/17 11:16 Laboratory Results 02/03/17 03:40 02/04/17 05:40 02/03/17 02/04/17 02/05/17 05:59 05:59 05:59 Intake Total 1573 600 Output Total 501 850 Balance 1072 -250 PT 17.2 SEC (12.0-15.0) H 01/31/17 22:15 INR 1.41 (0.83-1.16) H 01/31/17 22:15 ICD10 Worksheet Patient Problems: Problems Problem Status Onset Acute leg pain Acute Cellulitis Acute Dehydration Acute Hypokalemia Acute Renal failure (ARF), acute on chronic Acute COPD (chronic obstructive pulmonary disease) Chronic 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
--- NOTE | 2017-02-04 16:26 | HOSPPROG ---
Hospitalist Progress Note Assessment/Plan: DIAGNOSES: # Provoked PE: small on CT. Heparin gtt. Echo with normal RV function, moderate pulm HTN. # acute encephalopathy -multifactorial but dehydration and hypernatremia may have major role; others include dementia, medications, stress of surgery, changing to different hospital room this is 4th room, etc -has been improving; this am somewhat worse but got two narcotic doses at 3 AM and 6 AM # Acute on chronic hypoxic resp failure: due to PE. 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 Abx discontinued # Hypotension: required Levophed, now off. - BPs somewhat better today but off BB and CCB and blood pressures remain low -adrenal stim test normal # dehydration and hypernatremia -sodium stable today, has some edema of legs, from waist up overall seems close to euvolemic -will continue follow, no current changes in management # JODIE: Resolved back to baseline # COPD: no e/o exacerbation # Compensated diastolic HF: noted on TTE today # BPH: Flomax PLANS: -follow sodium and fluid balance closely -avoid sedating and FIELD ARTILLERY CREWMEMBER active medicines as able: I have stopped his order for Dilaudid and replaced with a p.r.n. for tramadol -continue IV heparin for the moment, plan on probably Eliquis therapy at discharge -continue wound care currently with maggots on the right foot -continue to hold antihypertensives SUBJECTIVE: OBJECTIVE Vitals reviewed: Blood pressures somewhat better today but still on the low side vitals otherwise stable without fever Exam: I visited with him early this morning. He was wide awake but not as good with interaction and conversation is when I saw him yesterday. skin warm dry color ok but skin turgor is poor other than in his right leg with some chronic edema resps not labored lungs clear BSs heart regular abd soft nondistended nontender, bowel sounds present limbs right foot in dressing with maggots at currently appropriately wrapped, left foot in dressing and brace looks okay, wounds not visualized by me today iv site ok Laboratory data: Sodium now back down to 145 Labs otherwise stable Objective: Vital Signs Temp Pulse Resp BP Pulse Ox 36.9 C 59 L 16 92/60 L 98 02/04/17 15:06 02/04/17 15:06 02/04/17 15:06 02/04/17 15:06 02/04/17 15:06 Laboratory Results 02/03/17 03:40 02/04/17 05:40 02/03/17 02/04/17 02/05/17 06:59 06:59 06:59 Intake Total 1573 600 Output Total 501 850 200 Balance 1072 -250 -200 PT 17.2 SEC (12.0-15.0) H 01/31/17 22:15 INR 1.41 (0.83-1.16) H 01/31/17 22:15 ICD10 Worksheet Patient Problems: Problems Problem Status Onset Acute leg pain Acute Cellulitis Acute Dehydration Acute Hypokalemia Acute Renal failure (ARF), acute on chronic Acute COPD (chronic obstructive pulmonary disease) Chronic 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
--- NOTE | 2017-02-04 18:12 | WOCRNPDOC ---
WOCRN Advanced Assessment Note - Skin Integrity Problem, Advanced Assess Right Foot Dressing Type: ABD Pad, Gauze, Kerlix, Larval Therapy Dressing Description: Intact, Shadowed Exudate Amount: Moderate Exudate Color: Red, Brown Integumentary Issue Intervention: Dressing Changed, Biologic Debridement Initiated/Continued (continued) Site Odor: Moderate, Musky, Pungent Skin Integrity Problem Comment: Lavae seem to be doing well and the remaining ones are thriving. Dressing changed to larval packet. Covered with moist gauze and then ABD which was secured with kerlix. Maggots will be removed tomorrow and wound will be reassessed. Amelia PEREA in room for care.
[2017-02-04] MEDS ORDERED: NS 1,000 ML IV ONE (20:44)
--- NOTE | 2017-02-04 21:18 | CPEKG ---
Heart Rate: 68 RR Interval: 882 P-R Interval: 176 QRSD Interval: 112 QT Interval: 408 QTC Interval: 434 P [place]: 68 QRS [place]: -58 T Wave [place]: 67 EKG Severity - ABNORMAL ECG - EKG Impression: SINUS RHYTHM EKG Impression: LEFT ANTERIOR FASCICULAR BLOCK EKG Impression: ANTERIOR INFARCT, AGE INDETERMINATE Electronically Signed By: Prasanna Alvares 05-Feb-2017 11:52:42
[2017-02-04 21:19] LABS: % IMMATURE GRANULYOCYTES 1.9 % (0.0-1.1); ABSOLUTE IMMATURE GRANULOCYTES 0.21 10^3/uL (0.00-0.10); ABSOLUTE NRBC COUNT 0.11 10^3/uL (0-0.01); ADD DIFF? NO; ADD MORPH? NO; ADD SCAN? NO; ATYPICAL LYMPHOCYTE FLAG 0 (0-99); FRAGMENT RBC FLAG 0 (0-99); HEMOGLOBIN 7.2 g/dL (13.7-17.5); LEFT SHIFT FLG 10 (0-99); LIPEMIA HEMOLYSIS FLAG 80 (0-99); MEAN CELL HEMOGLOBIN 31.6 pg (27.9-34.1); MEAN CELL HEMOGLOBIN CONCENTR. 32.7 g/dL (32.4-36.7); MEAN CELL VOLUME 96.5 fL (81.5-99.8); MEAN PLATELET VOLUME 10.3 fL (8.7-11.7); PLATELET CLUMPS FLAG 0 (0-99); PLATELET COUNT 217 10^3/uL (150-400); RED BLOOD CELL COUNT 2.28 10^6/uL (4.40-6.38); RED CELL DISTRIBUTION WIDTH 15.9 % (11.5-15.2)
[2017-02-04] MEDS: NIACIN ER 500 MG TAB.ER PO SCH (21:54)
--- NOTE | 2017-02-04 21:59 | HOSPPROG ---
Hospitalist Progress Note Assessment/Plan: Prolonged service, direct patient care, 40 minutes of additional time to that originally spent by the daily encounter progress note by Dr. Patrick Arriaga, from 8:40 p.m. until 9:20 p.m., addressing the following: -called by RN for patient's systolic blood pressure in the low 70s, ongoing encephalopathy -physical exam of the patient, he is alert awake oriented times 2 to person and time, not to place, with delayed verbal responses, ability to cooperate and follow commands, but flat affect, lethargic but arousable to verbal stimuli, heart rate is regular with an irregular rhythm, right lower extremity is mildly edematous and moderately tender to palpation, lungs are clear to auscultation bilaterally, abdomen is soft nontender nondistended -nurse reports no bloody or melanotic bowel movements, patient's mental status has remained fairly stable throughout the entirety of her shift, patient's oral intake has been poor, consisting mostly of fruit and some water -I reviewed the notes from the patient's chart, including today's progress note by Dr. Dr. Arriaga, reviewed the patient's labs including his mild leukocytosis on the day prior, his normal cosyntropin stim test, has normal renal function -at the present time it does not appear that the patient's hypotension is pathologic with a normal lactic acid level and no tachycardia -that being said, the patient was recently in the ICU and required Levophed, for hypotension, no suspected active infection -patient has received 500 cc of IV fluid bolus, systolic blood pressure is now in the low 80s, hemoglobin is 7.2 with no identifiable source of active bleeding -will transfuse 1 unit PRBCs stat as volume range aide, and finish the rest of 1 L normal saline total bolus -will monitor serial lactic acid levels, next 1 at midnight, next with a.m. labs -performed EKG which demonstrates sinus arrhythmia, left anterior fascicular block, Q-wave anteriorly, unable to compare to previous EKG as trace master's currently off line -discussed patient's case with charge nurse and ARN, we currently agree that the patient is safe to remain on the med surg unit given that his lactic acid is not elevated and his hypotension does not demonstrate evidence of decompensation, but if the patient's clinical status changes or is lactic acids begin to rise, then he will be transferred to the step-down unit or the intensive care unit Objective: Vital Signs Temp Pulse Resp BP Pulse Ox 36.9 C 86 18 73/47 L 92 02/04/17 20:00 02/04/17 20:00 02/04/17 20:00 02/04/17 20:00 02/04/17 20:00 Laboratory Results 02/04/17 20:07 02/04/17 05:40 02/03/17 02/04/17 02/05/17 05:59 05:59 05:59 Intake Total 1573 600 Output Total 501 850 200 Balance 1072 -250 -200 PT 17.2 SEC (12.0-15.0) H 01/31/17 22:15 INR 1.41 (0.83-1.16) H 01/31/17 22:15 ICD10 Worksheet Patient Problems: Problems Problem Status Onset 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
[2017-02-05] MEDS: HEPARIN/DEXTROSE 500 ML IV SCH ×2 (00:10→12:39)
--- NOTE | 2017-02-05 02:40 | HOSPPROG ---
Hospitalist Progress Note Assessment/Plan: Hospitalist Night Float Note Paged by RN noting transfusion consent form not completed. Patient with hypotension s/p IVF and plans to transfuse 1 unit this evening. I went to bedside and patient not able to provide consent as he remains encephalopathic. after fluids patient bps did improve SBP high 90s. h/h was slightly low but still >7/21. Will plan to repeat h/h this AM. lactate reviewed and WNL. if bps declined again or h/h dictates need for transfusion before shift changes will call patient's and discuss transfusion option for verbal consent otherwise defer to day team. Objective: Vital Signs Temp Pulse Resp BP Pulse Ox 37.0 C 64 18 96/58 L 97 02/05/17 00:00 02/05/17 00:00 02/05/17 00:00 02/05/17 00:00 02/05/17 00:00 Laboratory Results 02/04/17 20:07 02/04/17 05:40 02/03/17 02/04/17 02/05/17 05:59 05:59 05:59 Intake Total 1573 600 Output Total 501 850 200 Balance 1072 -250 -200 PT 17.2 SEC (12.0-15.0) H 01/31/17 22:15 INR 1.41 (0.83-1.16) H 01/31/17 22:15 ICD10 Worksheet Patient Problems: Problems Problem Status Onset Acute leg pain Acute Cellulitis Acute Dehydration Acute Hypokalemia Acute Renal failure (ARF), acute on chronic Acute COPD (chronic obstructive pulmonary disease) Chronic 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
[2017-02-05] MEDS: ACETAMINOPHEN 500 MG TAB PO SCH ×3 (05:16→22:04)
[2017-02-05 05:31] LABS: % IMMATURE GRANULYOCYTES 1.5 % (0.0-1.1); ABSOLUTE IMMATURE GRANULOCYTES 0.17 10^3/uL (0.00-0.10); ABSOLUTE NRBC COUNT 0.08 10^3/uL (0-0.01); ADD DIFF? NO; ADD MORPH? NO; ADD SCAN? NO; ATYPICAL LYMPHOCYTE FLAG 0 (0-99); FRAGMENT RBC FLAG 0 (0-99); HEMATOCRIT 22.2 % (40.0-51.0); LEFT SHIFT FLG 10 (0-99); LIPEMIA HEMOLYSIS FLAG 80 (0-99); MEAN CELL HEMOGLOBIN 30.4 pg (27.9-34.1); MEAN CELL HEMOGLOBIN CONCENTR. 31.5 g/dL (32.4-36.7); MEAN CELL VOLUME 96.5 fL (81.5-99.8); MEAN PLATELET VOLUME 10.2 fL (8.7-11.7); NRBC-AUTO% 0.7 % (0.0-0.2); PLATELET CLUMPS FLAG 10 (0-99); PLATELET COUNT 229 10^3/uL (150-400)
[2017-02-05 05:49] LABS: ANION GAP 6 mEq/L (8-16); CALCIUM 8.1 mg/dL (8.5-10.4); CARBON DIOXIDE 21 mEq/l (22-31); CHLORIDE 115 mEq/L (97-110); CREATININE 0.9 mg/dL (0.7-1.3); GLOMERULAR FILTRATION RATE > 60; GLUCOSE 89 mg/dL (70-100); POTASSIUM 3.7 mEq/L (3.5-5.2); SODIUM 142 mEq/L (134-144)
[2017-02-05] MEDS: OMEGA-3 FATTY ACIDS 1,000 MG CAP PO SCH (08:07)
[2017-02-05] MEDS: FAMOTIDINE 20 MG TAB PO SCH ×2 (08:07→22:04)
[2017-02-05] MEDS: TAMSULOSIN HCL 0.4 MG CAP PO SCH (08:07)
[2017-02-05] MEDS: VENLAFAXINE XR 75 MG CAP PO SCH (08:07)
[2017-02-05] MEDS: buPROPion SR 150 MG TAB PO SCH ×2 (08:07→22:04)
[2017-02-05] MEDS: GABAPENTIN 400 MG CAP PO SCH ×3 (08:08→22:04)
[2017-02-05] MEDS: traMADol 50 MG TAB PO PRN (08:17)
[2017-02-05] MEDS ORDERED: oxyCODONE IR 5 MG TAB PO PRN (09:22)
--- NOTE | 2017-02-05 09:30 | HOSPPROG ---
Hospitalist Progress Note Assessment/Plan: DIAGNOSES: # Provoked PE: small on CT. Heparin gtt. Echo with normal RV function, moderate pulm HTN. # acute encephalopathy -multifactorial but dehydration and hypernatremia may have major role; others include dementia, medications, anemia, stress of surgery, changing to different hospital room this is 4th room, etc -has been improving; this am somewhat worse but got two narcotic doses at 3 AM and 6 AM # Acute on chronic hypoxic resp failure: due to PE. 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 Abx discontinued # Hypotension: -BPs remain low off BB and CCB, unclear if this contributes to his delirium but it does not appear to be causing him other difficulties in the way of organ dysfunction or acidosis -agree with transfusion and see if this helps at all -adrenal stim test normal # dehydration and hypernatremia -sodium stable today, has some edema of legs, from waist up overall seems close to euvolemic -will continue follow, no current changes in management # JODIE: Resolved back to baseline # COPD: no e/o exacerbation # Compensated diastolic HF: noted on TTE today # BPH: Flomax PLANS: -transfusion today and will follow result consider a 2nd unit of blood if needed. Hoping this will benefit blood pressures and/or delirium -will review today with surgery whether we need a PICC line to continue or can change out to a peripheral IV, would depend on duration of antibiotics, cultures are negative -follow sodium and fluid balance closely -avoid sedating and PIPING BLOCKER active medicines as able: I have stopped his order for Dilaudid and replaced with a p.r.n. for tramadol, and would use tramadol preferentially over oxycodone, reviewed with nurse. -continue IV heparin for the moment, plan on probably Eliquis therapy at discharge -continue wound care currently with maggots on the right foot -continue to hold antihypertensives SUBJECTIVE: The patient denies any new or different symptoms. He admits ongoing pain in his right foot, minimal pain at his amputation stump No shortness of breath or nausea Is hungry and is eating as I enter the room OBJECTIVE Vitals reviewed: Blood pressures remain low, otherwise stable without fever Exam: He is more alert this morning and much more interactive and better oriented than yesterday morning, remains weak and with some degree of disorientation but is very appropriate in conversation and interactions with me in staff resps not labored lungs clear BSs heart regular abd soft nondistended nontender, bowel sounds present limbs right foot in dressing with maggots at currently appropriately wrapped, left foot in dressing and brace looks okay, wounds not visualized by me today iv site ok Laboratory data: Sodium now back down to 142 Hemoglobin decreased slightly further at 7 Labs otherwise stable Culture data: All cultures negative so far Objective: Vital Signs Temp Pulse Resp BP Pulse Ox 36.8 C 63 18 90/57 L 96 02/05/17 08:00 02/05/17 08:00 02/05/17 08:00 02/05/17 08:00 02/05/17 08:00 Laboratory Results 02/05/17 05:10 02/05/17 05:10 02/04/17 02/05/17 02/06/17 06:59 06:59 06:59 Intake Total 600 200 Output Total 850 650 Balance -250 -450 PT 17.2 SEC (12.0-15.0) H 01/31/17 22:15 INR 1.41 (0.83-1.16) H 01/31/17 22:15 - Time Spent With Patient Time Spent with Patient: greater than 35 minutes Time Spent with Patient: Greater than 35 minutes spent on this patients care, greater than 50% of time spent counseling, educating, and coordinating care regarding the above mentioned plan. 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
--- NOTE | 2017-02-05 11:08 | ASMTCMCOM ---
CM Note CM Note Notes: LUIS spoke w/ Dr. Arriaga this AM regarding d/c POC. Kennyptes that pt will d/c tomorrow to [facility]. CM sent updates to [facility] and informed them of the tenative d/c. CM to follow. Date Signed: 02/05/2017 11:08 AM Electronically Signed By:TARIQ Velasquez
--- NOTE | 2017-02-05 14:13 | WOCRNPDOC ---
[facility] Advanced Assessment Note - Skin Integrity Problem, Advanced Assess Right Foot Dressing Type: Abdominal Pads, Gauze, Kerlix, Larval Therapy Dressing Description: Intact, Shadowed Exudate Amount: Moderate Exudate Color: Red, Brown Exudate Characteristic(s): Sanguinous (with dressing removal) Integumentary Issue Intervention: Dressing Changed Arlyn Wound Tissue: Erythema, Painful/Tender Arlyn Wound Swelling: Mild Wound Bed Color: Yellow Wound Bed Constitution: Granulation Tissue (5%), Mixed Loose & Adhered Slough/ Eschar (95%) Wound Edges: Attached Site Odor: Moderate, Pungent Site Measurement - Head-to-Toe Length X Width X Depth (cm): no change since last week Skin Integrity Problem Comment: Maggots removed and disposed of. Approx 3 cm to tendon exposed in wound bed. Unfortunately the remainder of the patient's wound has deteriorated and the necrosis is thicker and is covering most of the wound. The wound edge from 1-3 oclock has turned to eschar. The larvae were unable to keep up with the quick tissue . Patient has refused another biological debridement. Dr. Newsome notified. Wound covered with silvasorb and non border mepilex foam. Secured with kerlix. Wound care is unable to autolytically debride this wound at the bedside due to the large amount of thick slough and pain. Patient may be amenable to another surgical debridement and perhaps wound vac placement at that time may be beneficial. Right Posterior Lower Leg Venous Stasis Ulcer Dressing Type: Allevyn Life Dressing Description: Clean/Dry, Intact Exudate Amount: Minimal Exudate Characteristic(s): Serosanguinous Integumentary Issue Intervention: Visualized Under Dressing Arlyn Wound Tissue: Erythema Arlyn Wound Swelling: Mild Wound Bed Color: Yellow Wound Bed Constitution: Adhered Slough Site Measurement - Head-to-Toe Length X Width X Depth (cm): 1x1x0.2
--- NOTE | 2017-02-05 15:29 | SOAPPROG ---
SOAP Progress Note Assessment/Plan: Assessment/Plan: - POD#5 s/p L BKA, R foot debridement - stump still looks good, with minimal fluid in the VAC - R foot continues to necrose despite maggot treatment. Will likely need further debridement/amputation. Would like to hold off given recent contralateral BKA - Plan to remove VAC tomorrow. Will need to come up with a plan for his R foot 01/29/17 17:21 01/31/17 07:26 02/01/17 13:27 02/02/17 08:37 02/03/17 11:41 02/04/17 14:50 02/05/17 15:28 Subjective: no new complaints Objective: Vital Signs Temp Pulse Resp BP Pulse Ox 36.9 C 68 20 90/61 L 99 02/05/17 11:28 02/05/17 11:28 02/05/17 11:28 02/05/17 11:28 02/05/17 11:28 Laboratory Results 02/05/17 05:10 02/05/17 05:10 02/04/17 02/05/17 02/06/17 05:59 05:59 05:59 Intake Total 600 200 Output Total 850 650 Balance -250 -450 PT 17.2 SEC (12.0-15.0) H 01/31/17 22:15 INR 1.41 (0.83-1.16) H 01/31/17 22:15 ICD10 Worksheet Patient Problems: Problems Problem Status Onset Acute leg pain Acute Cellulitis Acute Dehydration Acute Hypokalemia Acute Renal failure (ARF), acute on chronic Acute COPD (chronic obstructive pulmonary disease) Chronic 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
[2017-02-05] MEDS: NIACIN ER 500 MG TAB.ER PO SCH (22:04)
[2017-02-06] MEDS: HEPARIN/DEXTROSE 500 ML IV SCH ×2 (01:35→13:32)
[2017-02-06] MEDS: ACETAMINOPHEN 500 MG TAB PO SCH ×3 (06:02→21:36)
[2017-02-06 06:55] LABS: ANION GAP 7 mEq/L (8-16); CALCIUM 8.3 mg/dL (8.5-10.4); CARBON DIOXIDE 26 mEq/l (22-31); CHLORIDE 112 mEq/L (97-110); GLOMERULAR FILTRATION RATE > 60; GLUCOSE 91 mg/dL (70-100); POTASSIUM 3.6 mEq/L (3.5-5.2); SODIUM 145 mEq/L (134-144)
[2017-02-06] MEDS: VENLAFAXINE XR 75 MG CAP PO SCH (09:52)
[2017-02-06] MEDS: FAMOTIDINE 20 MG TAB PO SCH ×2 (09:53→21:36)
[2017-02-06] MEDS: TAMSULOSIN HCL 0.4 MG CAP PO SCH (09:54)
[2017-02-06] MEDS: buPROPion SR 150 MG TAB PO SCH ×2 (09:54→21:36)
[2017-02-06] MEDS: OMEGA-3 FATTY ACIDS 1,000 MG CAP PO SCH (09:55)
[2017-02-06] MEDS: GABAPENTIN 400 MG CAP PO SCH ×3 (09:55→21:36)
[2017-02-06] MEDS: traMADol 50 MG TAB PO PRN (10:01)
[2017-02-06 13:41] LABS: HEMATOCRIT 17.7 % (40.0-51.0)
[2017-02-06 13:50] LABS: HEMOGLOBIN 5.6 g/dL (13.7-17.5)
[2017-02-06] MEDS ORDERED: NS 1,000 ML IV ONE (14:12)
--- NOTE | 2017-02-06 15:37 | SOAPPROG ---
SOAP Progress Note Assessment/Plan: Assessment/Plan: - POD#7 s/p L BKA, R foot debridement - Took the VAC off the stump site. The incision is c/d/i and without signs of malperfusion or erythema. I dont appreciate any fluctuance or worrisome findings. Wound was subsequently covered with clean, dry gauze and tape. The stump protector will be replaced shortly - The R foot is weeping and bleeding which is a good sign as I was unable to get much bleeding intraoperatively. There are some areas of poor perfusion but nothing at this time looks frankly necrotic, will cont dressing changes. Will likely need operative debridement versus amputation in the future but want him to heal his contralateral BKA before undergoing another major procedure - Im ok with transfer to rehab whenever cleared medically. - follow up with me in 10-14 days after d/c 01/29/17 17:21 01/31/17 07:26 02/01/17 13:27 02/02/17 08:37 02/03/17 11:41 02/04/17 14:50 02/05/17 15:28 02/06/17 15:34 Subjective: no complaints, pain appears controlled Objective: Vital Signs Temp Pulse Resp BP Pulse Ox 36.9 C 70 22 H 89/66 L 97 02/06/17 15:30 02/06/17 15:30 02/06/17 15:30 02/06/17 15:30 02/06/17 15:30 Microbiology 01/31/17 22:30 Blood Culture - Final Blood 01/31/17 18:30 Blood Culture - Final Blood Laboratory Results 02/06/17 13:25 02/06/17 06:00 02/05/17 02/06/17 02/07/17 05:59 05:59 05:59 Intake Total 200 900 Output Total 650 875 500 Balance -450 25 -500 PT 17.2 SEC (12.0-15.0) H 01/31/17 22:15 INR 1.41 (0.83-1.16) H 01/31/17 22:15 ICD10 Worksheet Patient Problems: Problems Problem Status Onset Acute leg pain Acute Cellulitis Acute Dehydration Acute Hypokalemia Acute Renal failure (ARF), acute on chronic Acute COPD (chronic obstructive pulmonary disease) Chronic 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
[2017-02-06] MEDS ORDERED: fentaNYL 100 MCG/2 ML INJ ONE (17:02)
[2017-02-06] MEDS ORDERED: IOPAMIDOL (ISOVUE-300) 100 ML BTL ONE (17:11)
--- NOTE | 2017-02-06 17:35 | PDRADPN ---
Radiology Procedure Note Date of Procedure: 02/06/17 Radiologist: Reva Yanez Pre-op Diagnosis: PE Post-op Diagnosis: PE Indication: needs to get off of anticoagulation due to anemia Procedure: IVC filter placement Finding(s): No clot in IVC or iliac veins Inf/Abcess present in the surg proc area at time of surgery?: No Complications: None
[2017-02-06] MEDS ORDERED: fentaNYL 100 MCG/2 ML INJ IVP ONE (17:45)
--- NOTE | 2017-02-06 17:58 | HOSPPROG ---
Hospitalist Progress Note Assessment/Plan: DIAGNOSES: # Provoked PE: small on CT. Heparin gtt. Echo with normal RV function, moderate pulm HTN. # acute encephalopathy -multifactorial but dehydration and hypernatremia may have major role; others include dementia, medications, anemia, stress of surgery, changing to different hospital room this is 4th room, etc -has been improving; this am somewhat worse but got two narcotic doses at 3 AM and 6 AM # Acute on chronic hypoxic resp failure: due to PE. 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 Abx discontinued # Hypotension: -BPs remain low off BB and CCB, unclear if this contributes to his delirium but it does not appear to be causing him other difficulties in the way of organ dysfunction or acidosis -agree with transfusion and see if this helps at all -adrenal stim test normal # dehydration and hypernatremia -sodium stable today, has some edema of legs, from waist up overall seems close to euvolemic -will continue follow, no current changes in management # JODIE: Resolved back to baseline # COPD: no e/o exacerbation # Compensated diastolic HF: noted on TTE today # BPH: Flomax PLANS: -transfusion today 2 units, follow his blood count, bleeding, vital signs closely -heparin drip DC at this time due to his bleeding, and I reviewed his case with Dr. Reva Yanez and he now has had an IVC filter placed; once his foot wound his stabilized to the point where we think he is not at significant risk of bleeding would resume anticoagulation for his PE, would favor discharging on new oral anticoagulant but could use heparin drip here -follow sodium and fluid balance closely -avoid sedating and PROJECT MANAGEMENT CONSULTANT active medicines as able: I have stopped his order for Dilaudid and replaced with a p.r.n. for tramadol, and would use tramadol preferentially over oxycodone, reviewed with nurse. -continue wound care per Dr. Olivier -continue to hold antihypertensives SUBJECTIVE: Still with some pain in his right foot unchanged. His left BKA still is not very uncomfortable all Today he does mention to a some pain in his right hip which has been present for what sounds like perhaps 3 weeks or so per his . He does have a history of hip replacement on that side. The pain is increased with movement of the hip at this time. No other symptoms. Eating well. Notably the patient started having some significant bleeding from the dorsal wound on his right foot last night and it has continued through the day and actually picked up speed later in the day today. We did recheck his blood count and his hemoglobin has decreased as well to 5. His blood pressures have remained low but in the same range that they have been throughout his hospital stay OBJECTIVE Vitals reviewed: Blood pressures remain low but overall unchanged, otherwise stable without fever Exam: He is fairly alert more interactive and fairly oriented today compared to the last few days. Eating well resps not labored lungs clear BSs heart regular abd soft nondistended nontender, bowel sounds present limbs right foot in dressing currently with only slight oozing of blood but previously through the day has had significant bleeding iv site ok Laboratory data: Sodium back up a bit at 145 Hemoglobin decreased to 5 Renal function stable Culture data: All cultures negative so far Objective: Vital Signs Temp Pulse Resp BP Pulse Ox 36.8 C 71 14 95/64 L 96 02/06/17 17:46 02/06/17 17:46 02/06/17 17:46 02/06/17 17:46 02/06/17 17:46 Microbiology 01/31/17 22:30 Blood Culture - Final Blood 01/31/17 18:30 Blood Culture - Final Blood Laboratory Results 02/06/17 13:25 02/06/17 06:00 02/05/17 02/06/17 02/07/17 06:59 06:59 06:59 Intake Total 200 900 Output Total 650 875 500 Balance -450 25 -500 PT 17.2 SEC (12.0-15.0) H 01/31/17 22:15 INR 1.41 (0.83-1.16) H 01/31/17 22:15 - Time Spent With Patient Time Spent with Patient: greater than 35 minutes Time Spent with Patient: Greater than 35 minutes spent on this patients care, greater than 50% of time spent counseling, educating, and coordinating care regarding the above mentioned plan. 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
[2017-02-06] MEDS: NIACIN ER 500 MG TAB.ER PO SCH (21:36)
[2017-02-07] MEDS: ACETAMINOPHEN 500 MG TAB PO SCH ×3 (06:22→21:45)
[2017-02-07 06:38] LABS: % IMMATURE GRANULYOCYTES 1.2 % (0.0-1.1); ABSOLUTE IMMATURE GRANULOCYTES 0.13 10^3/uL (0.00-0.10); ABSOLUTE NRBC COUNT 0.06 10^3/uL (0-0.01); ADD DIFF? NO; ADD MORPH? NO; ADD SCAN? NO; ATYPICAL LYMPHOCYTE FLAG 0 (0-99); FRAGMENT RBC FLAG 0 (0-99); HEMATOCRIT 23.3 % (40.0-51.0); HEMOGLOBIN 7.8 g/dL (13.7-17.5); LEFT SHIFT FLG 10 (0-99); LIPEMIA HEMOLYSIS FLAG 80 (0-99); MEAN CELL HEMOGLOBIN 30.5 pg (27.9-34.1); MEAN CELL HEMOGLOBIN CONCENTR. 33.5 g/dL (32.4-36.7); MEAN PLATELET VOLUME 9.7 fL (8.7-11.7); NRBC-AUTO% 0.6 % (0.0-0.2); PLATELET CLUMPS FLAG 0 (0-99); PLATELET COUNT 213 10^3/uL (150-400); RED BLOOD CELL COUNT 2.56 10^6/uL (4.40-6.38); RED CELL DISTRIBUTION WIDTH 17.5 % (11.5-15.2)
[2017-02-07 06:59] LABS: ANION GAP 7 mEq/L (8-16); CALCIUM 8.2 mg/dL (8.5-10.4); CARBON DIOXIDE 24 mEq/l (22-31); CHLORIDE 114 mEq/L (97-110); CREATININE 0.9 mg/dL (0.7-1.3); GLOMERULAR FILTRATION RATE > 60; GLUCOSE 84 mg/dL (70-100); POTASSIUM 3.8 mEq/L (3.5-5.2); SODIUM 145 mEq/L (134-144)
[2017-02-07] MEDS: OMEGA-3 FATTY ACIDS 1,000 MG CAP PO SCH (10:09)
[2017-02-07] MEDS: VENLAFAXINE XR 75 MG CAP PO SCH (10:09)
[2017-02-07] MEDS: FAMOTIDINE 20 MG TAB PO SCH ×2 (10:09→21:45)
[2017-02-07] MEDS: TAMSULOSIN HCL 0.4 MG CAP PO SCH (10:09)
[2017-02-07] MEDS: buPROPion SR 150 MG TAB PO SCH ×2 (10:09→21:44)
[2017-02-07] MEDS: GABAPENTIN 400 MG CAP PO SCH ×3 (10:10→21:43)
[2017-02-07] MEDS: traMADol 50 MG TAB PO PRN (10:14)
--- NOTE | 2017-02-07 15:40 | ASMTCMCOM ---
CM Note CM Note Notes: Updates sent to [facility]. CM spoke w/ Alfredo RN regarding d/c POC. Pt will start a heprin drip tomorrow. CM to follow. Date Signed: 02/07/2017 03:40 PM Electronically Signed By:TARIQ Velasquez
--- NOTE | 2017-02-07 16:30 | SOAPPROG ---
SOAP Progress Note Assessment/Plan: Assessment and plan: 76 yo male s/p L BKA and R foot wound debridement. Doing well. Left BKA incision is clean, dry, and intact. No redness, warmth, or purulent drainage. R foot wound dressing removed. Old, coagulated blood cleared from wound bed. Wound bed appears slightly pale, but no erythema, warmth, drainage, or other signs of infection. Continue to change dressings and monitor wound. F/u outpatient 10-14 days after discharge 02/07/17 16:28 Subjective: Pt is doing well. Reported some pain with dressing changes, but otherwise no complaints. Objective: General: Elderly male resting comfortably. NAD. Skin: Wound bed to dorsal aspect of right foot appears slightly pale. Wound cleaned and dressing changed. Will continue to monitor. Left BKA site clean, dry , and intact. No streaking erythema or drainage from the wound. Vital Signs Temp Pulse Resp BP Pulse Ox 36.7 C 71 20 98/64 L 87 L 02/07/17 11:15 02/07/17 11:15 02/07/17 11:15 02/07/17 11:15 02/07/17 11:15 Laboratory Results 02/07/17 06:18 02/07/17 06:18 02/06/17 02/07/17 02/08/17 05:59 05:59 05:59 Intake Total 900 1678 Output Total 875 1225 Balance 25 453 PT 17.2 SEC (12.0-15.0) H 01/31/17 22:15 INR 1.41 (0.83-1.16) H 01/31/17 22:15 ICD10 Worksheet Patient Problems: Problems Problem Status Onset Acute leg pain Acute Cellulitis Acute Dehydration Acute Hypokalemia Acute Renal failure (ARF), acute on chronic Acute COPD (chronic obstructive pulmonary disease) Chronic 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
--- NOTE | 2017-02-07 19:05 | HOSPPROG ---
Hospitalist Progress Note Assessment/Plan: Assessment: 76 yo M p/w acute on chronic encephalopathy in setting of acute on chronic hypoxic respiratory failure 2/2 provoked PE, hypernatremia, JODIE, w/ bilat wound infections Plan: # Provoked PE: small on CT. Echo with normal RV function, moderate pulm HTN. Received hep gtt, but was stopped in setting of severe bleeding - IVC filter placed 02/06 by IR - off anticoagulation since 02/06, consider restarting 02/08 w/ hep gtt to gauge whether he rebleeds w/ evolving level of healing at R foot # Acute on chronic encephalopathy: evidenced by global brain dysfunction characterized by confusion, disorientation, somnolence, and what appeared to be visual hallucinations w/ the patient picking the other night, likely 2/2 metabolic effects of JODIE/hypernatremia + toxic effects of wound infxns - mental status returned to baseline today, his chronic dementia is characterized by delayed cog process but otherwise fully oriented now # Acute on chronic hypoxic resp failure: evidenced by SpO2 85% on room air w/ objective tachypnea, labored breathing and up to 8LPM high flow o2, 2/2 PE and likely atelectasis - cont on supp o2, will require at discharge # Atelectasis: acute, 2/2 immobility, give IS # Wound infections of legs: 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 Arriaga, we agree it is likely 2/2 combination of low oncotic pressure, inactivity and somnolence, third spacing - adrenal stim test normal - mild improvements today w/ improvements in his level of mentation # Metabolic acidosis: acute on presentation, 2/2 lactic acid, has since cleared w/ IVF # Acute hypernatremia: 2/2 free water deficit and third spacing - s/p D5W, Na 145, cont monitor # JODIE: Resolved back to baseline # COPD: no e/o exacerbation # Chronic diastolic HF: noted on TTE, not actively diuresing # Acute blood loss anemia: Hgb down to 5 w/ bleeding at foot wound 02/06, transfused, stabilized - cont monitor Hgb # BPH: Flomax Diet: as marion PPx: High risk, IVC, no SCDs given wounds, no pharm given bleed Code: Full Dispo: ADD uncertain, remains ill, likely require SNF High level of medical complexity, high risk of worsening morbidity/mortality 2/ 2 issues outlined above. Subjective: patient reporst pain in dorsum of RLE Objective: Vital Signs Temp Pulse Resp BP Pulse Ox 36.9 C 66 18 103/70 94 02/07/17 16:00 02/07/17 16:00 02/07/17 16:00 02/07/17 16:00 02/07/17 16:00 Laboratory Results 02/07/17 06:18 02/07/17 06:18 02/06/17 02/07/17 02/08/17 05:59 05:59 05:59 Intake Total 900 1678 Output Total 875 1225 Balance 25 453 PT 17.2 SEC (12.0-15.0) H 01/31/17 22:15 INR 1.41 (0.83-1.16) H 01/31/17 22:15 - Physical Exam Constitutional: chronically ill appearing, uncomfortable, other (pale), No no apparent distress (mild), No not in pain (moderate) Cardiovascular: systolic murmur (I/ at sternum), No irregularly irregular, No tachycardia, No bradycardia, No edema Respiratory: inspiratory crackles (bilat bases), No reduced air movement, No expiratory wheeze, No bronchial breath sounds, No respiratory distress Gastrointestinal: normoactive bowel sounds, soft, non-tender abdomen, no palpable masses, No distension Skin: other (large area of pale slough dorsum R foot w/o bleeding, no erythema around edges, minimal tenderness at edges, no streaking) Neurologic: AAOx3, sensation intact bilaterally, No facial droop Psychiatric: anxious, other (concentration 7/7, somewhat delayed verbal responses, cooperative), No agitated ICD10 Worksheet Patient Problems: Problems Problem Status Onset Acute leg pain Acute Cellulitis Acute Dehydration Acute Hypokalemia Acute Renal failure (ARF), acute on chronic Acute COPD (chronic obstructive pulmonary disease) Chronic 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
[2017-02-07] MEDS ORDERED: LACTULOSE 20 GM/30 ML UDCUP PO PRN (19:21)
[2017-02-07] MEDS ORDERED: POLYETHYLENE GLYCOL 3350 17 GM PKT PO PRN (19:21)
[2017-02-07] MEDS ORDERED: MAGNESIUM HYDROXIDE 30 ML UDCUP PO PRN (19:21)
[2017-02-07] MEDS ORDERED: BISACODYL 10 MG SUPP PR PRN (19:21)
[2017-02-07] MEDS ORDERED: LORazepam 0.5 MG TAB PO PRN (19:26)
[2017-02-07] MEDS: SENNOSIDES/DOCUSATE SODIUM TAB PO SCH (21:46)
[2017-02-07] MEDS: NIACIN ER 500 MG TAB.ER PO SCH (21:46)
[2017-02-08 04:27] LABS: % IMMATURE GRANULYOCYTES 0.7 % (0.0-1.1); ABSOLUTE IMMATURE GRANULOCYTES 0.07 10^3/uL (0.00-0.10); ABSOLUTE NRBC COUNT 0.04 10^3/uL (0-0.01); ADD DIFF? NO; ADD MORPH? NO; ADD SCAN? NO; ATYPICAL LYMPHOCYTE FLAG 10 (0-99); FRAGMENT RBC FLAG 0 (0-99); HEMATOCRIT 23.6 % (40.0-51.0); HEMOGLOBIN 7.6 g/dL (13.7-17.5); LEFT SHIFT FLG 0 (0-99); LIPEMIA HEMOLYSIS FLAG 80 (0-99); MEAN CELL HEMOGLOBIN CONCENTR. 32.2 g/dL (32.4-36.7); MEAN CELL VOLUME 93.3 fL (81.5-99.8); MEAN PLATELET VOLUME 9.7 fL (8.7-11.7); NRBC-AUTO% 0.4 % (0.0-0.2); PLATELET CLUMPS FLAG 0 (0-99); PLATELET COUNT 224 10^3/uL (150-400); RED BLOOD CELL COUNT 2.53 10^6/uL (4.40-6.38); RED CELL DISTRIBUTION WIDTH 17.2 % (11.5-15.2)
[2017-02-08 04:46] LABS: ANION GAP 6 mEq/L (8-16); CALCIUM 8.3 mg/dL (8.5-10.4); CARBON DIOXIDE 27 mEq/l (22-31); CHLORIDE 113 mEq/L (97-110); CREATININE 0.9 mg/dL (0.7-1.3); GLOMERULAR FILTRATION RATE > 60; GLUCOSE 85 mg/dL (70-100); POTASSIUM 3.9 mEq/L (3.5-5.2); SODIUM 146 mEq/L (134-144)
[2017-02-08] MEDS: ACETAMINOPHEN 500 MG TAB PO SCH ×3 (06:40→21:25)
[2017-02-08] MEDS: TAMSULOSIN HCL 0.4 MG CAP PO SCH (08:31)
[2017-02-08] MEDS: SENNOSIDES/DOCUSATE SODIUM TAB PO SCH ×2 (08:31→21:25)
[2017-02-08] MEDS: VENLAFAXINE XR 75 MG CAP PO SCH (08:32)
[2017-02-08] MEDS: GABAPENTIN 400 MG CAP PO SCH ×3 (08:32→21:26)
[2017-02-08] MEDS: OMEGA-3 FATTY ACIDS 1,000 MG CAP PO SCH (08:33)
[2017-02-08] MEDS: buPROPion SR 150 MG TAB PO SCH ×2 (08:33→21:25)
[2017-02-08] MEDS: FAMOTIDINE 20 MG TAB PO SCH ×2 (08:33→21:25)
--- NOTE | 2017-02-08 11:20 | SOAPPROG ---
SOAP Progress Note Assessment/Plan: Assessment and plan: 76 yo male s/p L BKA and R foot wound debridement. Doing well. No surgical changes, please call with any questions or concerns. Sandro rounding all weekend. F/u outpatient 7-10 days after discharge w Dr. Newsome 02/07/17 16:28 02/08/17 11:20 Objective: Vital Signs Temp Pulse Resp BP Pulse Ox 36.8 C 70 18 121/78 H 93 02/08/17 08:00 02/08/17 08:00 02/08/17 08:00 02/08/17 08:00 02/08/17 08:00 Laboratory Results 02/08/17 04:00 02/08/17 04:00 02/07/17 02/08/17 02/09/17 05:59 05:59 05:59 Intake Total 1678 300 Output Total 1225 750 Balance 453 -450 PT 17.2 SEC (12.0-15.0) H 01/31/17 22:15 INR 1.41 (0.83-1.16) H 01/31/17 22:15 ICD10 Worksheet Patient Problems: Problems Problem Status Onset Acute leg pain Acute Cellulitis Acute Dehydration Acute Hypokalemia Acute Renal failure (ARF), acute on chronic Acute COPD (chronic obstructive pulmonary disease) Chronic 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
--- NOTE | 2017-02-08 11:56 | HOSPPROG ---
Hospitalist Progress Note Assessment/Plan: # Acute Provoked PE - CT chest (personally reviewed and interpreted) small on right - oxygen saturations 93% on 1.5L Echo with normal RV function, moderate pulm HTN- initially received hep gtt, but was stopped in setting of severe bleeding - IVC filter placed 02/06 by IR - off anticoagulation since 02/06, consider restarting 02/09 w/ hep gtt # Acute on chronic encephalopathy with confusion, disorientation, somnolence, and visual hallucinations suspected 2/2 metabolic effects of JODIE/ hypernatremia improved today - continue to monitor # Atelectasis: acute, 2/2 immobility, give IS # Wound infections of legs: 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, s/p maggot larvae therapy, s/p Abx - appreciate ongoing surgical care - cont wound care # Hypotension- suspected multifactorial - for acute blood loss and acute illness - adrenal stim test normal SBP 120's overnight - s/p 2UPRBC # anemia 2/2 acute blood loss - hgb 5.7 prior to transfusion - 7 this am - holding anticoagulation today - recheck in am # Metabolic acidosis: acute on presentation, 2/2 lactic acid, has since cleared w/ IVF # JODIE: Resolved back to baseline # diet- taking PO # proph - anticoag on hold # dispo- > 2MN as requires ongoing monitoring - and ultimate restart of anticoag I have discussed the case with Dr. Jo - no changes to regimen today- stump looks good Subjective: denies SOB or CP Objective: Vital Signs Temp Pulse Resp BP Pulse Ox 36.8 C 70 18 121/78 H 93 02/08/17 08:00 02/08/17 08:00 02/08/17 08:00 02/08/17 08:00 02/08/17 08:00 Laboratory Results 02/08/17 04:00 02/08/17 04:00 02/07/17 02/08/17 02/09/17 05:59 05:59 05:59 Intake Total 1678 300 Output Total 1225 750 Balance 453 -450 PT 17.2 SEC (12.0-15.0) H 01/31/17 22:15 INR 1.41 (0.83-1.16) H 01/31/17 22:15 - Physical Exam Constitutional: chronically ill appearing Eyes: anicteric sclera Ears, Nose, Mouth, Throat: moist mucous membranes Cardiovascular: regular rate and rhythym Respiratory: no respiratory distress, no rales or rhonchi Gastrointestinal: normoactive bowel sounds, soft, non-tender abdomen Genitourinary: no bladder fullness Skin: warm Musculoskeletal: No asymmetric calves Neurologic: AAOx3 Psychiatric: interacting appropriately Lymph, Heme, Immunologic: no cervical LAD ICD10 Worksheet Patient Problems: Problems Problem Status Onset Acute leg pain Acute Cellulitis Acute Dehydration Acute Hypokalemia Acute Renal failure (ARF), acute on chronic Acute COPD (chronic obstructive pulmonary disease) Chronic 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
[2017-02-08] MEDS: NIACIN ER 500 MG TAB.ER PO SCH (21:25)
[2017-02-08] MEDS ORDERED: METHYL SALICYLATE/MENTHOL OINTMENT TP PRN (21:37)
[2017-02-09 04:54] LABS: % IMMATURE GRANULYOCYTES 0.8 % (0.0-1.1); ABSOLUTE IMMATURE GRANULOCYTES 0.08 10^3/uL (0.00-0.10); ABSOLUTE NRBC COUNT 0.03 10^3/uL (0-0.01); ADD DIFF? NO; ADD MORPH? NO; ADD SCAN? NO; ATYPICAL LYMPHOCYTE FLAG 0 (0-99); FRAGMENT RBC FLAG 0 (0-99); HEMATOCRIT 24.4 % (40.0-51.0); HEMOGLOBIN 7.6 g/dL (13.7-17.5); LEFT SHIFT FLG 10 (0-99); LIPEMIA HEMOLYSIS FLAG 80 (0-99); MEAN CELL HEMOGLOBIN 29.6 pg (27.9-34.1); MEAN CELL HEMOGLOBIN CONCENTR. 31.1 g/dL (32.4-36.7); MEAN CELL VOLUME 94.9 fL (81.5-99.8); MEAN PLATELET VOLUME 9.5 fL (8.7-11.7); NRBC-AUTO% 0.3 % (0.0-0.2); PLATELET CLUMPS FLAG 0 (0-99); PLATELET COUNT 234 10^3/uL (150-400); RED BLOOD CELL COUNT 2.57 10^6/uL (4.40-6.38); RED CELL DISTRIBUTION WIDTH 16.8 % (11.5-15.2)
[2017-02-09 05:09] LABS: ANION GAP 9 mEq/L (8-16); CALCIUM 8.4 mg/dL (8.5-10.4); CARBON DIOXIDE 24 mEq/l (22-31); CHLORIDE 113 mEq/L (97-110); CREATININE 0.9 mg/dL (0.7-1.3); GLOMERULAR FILTRATION RATE > 60; GLUCOSE 101 mg/dL (70-100); POTASSIUM 3.5 mEq/L (3.5-5.2); SODIUM 146 mEq/L (134-144)
[2017-02-09] MEDS: ACETAMINOPHEN 500 MG TAB PO SCH ×3 (05:14→21:36)
[2017-02-09] MEDS: traMADol 50 MG TAB PO PRN (05:51)
[2017-02-09] MEDS: TAMSULOSIN HCL 0.4 MG CAP PO SCH (08:58)
[2017-02-09] MEDS: FAMOTIDINE 20 MG TAB PO SCH ×2 (08:58→21:36)
[2017-02-09] MEDS: buPROPion SR 150 MG TAB PO SCH ×2 (08:58→21:35)
[2017-02-09] MEDS: VENLAFAXINE XR 75 MG CAP PO SCH (08:58)
[2017-02-09] MEDS: FERROUS SULFATE 325 MG TAB PO SCH (08:59)
[2017-02-09] MEDS: OMEGA-3 FATTY ACIDS 1,000 MG CAP PO SCH (08:59)
[2017-02-09] MEDS: GABAPENTIN 400 MG CAP PO SCH ×3 (08:59→21:36)
[2017-02-09] MEDS: SENNOSIDES/DOCUSATE SODIUM TAB PO SCH ×2 (09:00→21:51)
--- NOTE | 2017-02-09 10:07 | HOSPPROG ---
Hospitalist Progress Note Assessment/Plan: # Acute Provoked PE - CT chest (personally reviewed and interpreted) small on right - oxygen saturations 93% on 2L Echo with normal RV function, moderate pulm HTN- initially received hep gtt, but was stopped in setting of severe bleeding-- off anticoagulation since 02/06 - IVC filter placed 02/06 by IR -restart heparin gtt no bolus today - restart warfarin orally - monitor closely for any bleeding # anemia 2/2 acute blood loss - hgb 5.7 prior to transfusion - remains 7 this am - transfuse 1 U PRBC today - cautiously restarting anticoagulation - recheck H&H in am post transfusion # Acute on chronic encephalopathy with confusion, disorientation, somnolence, and visual hallucinations suspected 2/2 metabolic effects of JODIE/ hypernatremia improved today - continue to monitor # Atelectasis: acute, 2/2 immobility, give IS # Wound infections of legs: 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 Jo - we will carefully restart heparin gtt today and monitor Subjective: denies pain Objective: Vital Signs Temp Pulse Resp BP Pulse Ox 36.9 C 68 16 122/83 H 89 L 02/09/17 08:00 02/09/17 08:00 02/09/17 08:00 02/09/17 08:00 02/09/17 08:00 Laboratory Results 02/09/17 04:40 02/09/17 04:40 02/08/17 02/09/17 02/10/17 05:59 05:59 05:59 Intake Total 300 Output Total 750 900 275 Balance -450 -900 -275 PT 17.2 SEC (12.0-15.0) H 01/31/17 22:15 INR 1.41 (0.83-1.16) H 01/31/17 22:15 - Physical Exam Constitutional: appears nourished Eyes: anicteric sclera Ears, Nose, Mouth, Throat: moist mucous membranes Cardiovascular: regular rate and rhythym Respiratory: no respiratory distress, no rales or rhonchi Gastrointestinal: normoactive bowel sounds Genitourinary: no bladder fullness Skin: warm Musculoskeletal: other (stump dressing CDI), No asymmetric calves Neurologic: AAOx3 Psychiatric: interacting appropriately Lymph, Heme, Immunologic: no cervical LAD ICD10 Worksheet Patient Problems: Problems Problem Status Onset Acute leg pain Acute Cellulitis Acute Dehydration Acute Hypokalemia Acute Renal failure (ARF), acute on chronic Acute COPD (chronic obstructive pulmonary disease) Chronic 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
[2017-02-09 10:43] LABS: % IMMATURE GRANULYOCYTES 0.6 % (0.0-1.1); ABSOLUTE IMMATURE GRANULOCYTES 0.06 10^3/uL (0.00-0.10); ABSOLUTE NRBC COUNT 0.03 10^3/uL (0-0.01); ADD DIFF? NO; ADD MORPH? NO; ADD SCAN? NO; ATYPICAL LYMPHOCYTE FLAG 0 (0-99); FRAGMENT RBC FLAG 0 (0-99); HEMATOCRIT 25.1 % (40.0-51.0); HEMOGLOBIN 8.2 g/dL (13.7-17.5); LEFT SHIFT FLG 0 (0-99); LIPEMIA HEMOLYSIS FLAG 80 (0-99); MEAN CELL HEMOGLOBIN 30.6 pg (27.9-34.1); MEAN CELL HEMOGLOBIN CONCENTR. 32.7 g/dL (32.4-36.7); MEAN CELL VOLUME 93.7 fL (81.5-99.8); MEAN PLATELET VOLUME 9.3 fL (8.7-11.7); NRBC-AUTO% 0.3 % (0.0-0.2); PLATELET CLUMPS FLAG 10 (0-99); PLATELET COUNT 240 10^3/uL (150-400); RED BLOOD CELL COUNT 2.68 10^6/uL (4.40-6.38); RED CELL DISTRIBUTION WIDTH 16.8 % (11.5-15.2)
[2017-02-09 10:51] LABS: INR 1.1 (0.83-1.16); PROTIME(PATIENT) 14.1 SEC (12.0-15.0)
[2017-02-09 10:52] LABS: APTT 50.1 SEC (23.0-38.0)
--- NOTE | 2017-02-09 11:06 | ASMTCMCOM ---
CM Note CM Note Notes: CM provided updates to [facility] that pt will not be discharging today. CM sent updates via allscripts to [facility]. Pt will start a heprin drip then switched to coumadin. CM to follow. Date Signed: 02/09/2017 11:06 AM Electronically Signed By:TARIQ Velasquez
[2017-02-09] MEDS: HEPARIN/DEXTROSE 500 ML IV SCH ×2 (11:48→22:45)
[2017-02-09] MEDS ORDERED: WARFARIN SODIUM 2.5 MG TAB PO ONE (16:00)
[2017-02-09] MEDS: NIACIN ER 500 MG TAB.ER PO SCH (21:35)
[2017-02-09] MEDS: HEPARIN 10,000 UNIT/10 ML MDV IVP PRN (22:42)
[2017-02-10 04:51] LABS: ANION GAP 8 mEq/L (8-16); CALCIUM 8.5 mg/dL (8.5-10.4); CARBON DIOXIDE 26 mEq/l (22-31); CHLORIDE 110 mEq/L (97-110); CREATININE 0.9 mg/dL (0.7-1.3); GLOMERULAR FILTRATION RATE > 60; GLUCOSE 92 mg/dL (70-100); POTASSIUM 3.6 mEq/L (3.5-5.2); SODIUM 144 mEq/L (134-144)
[2017-02-10] MEDS: HEPARIN 10,000 UNIT/10 ML MDV IVP PRN ×2 (05:17→18:27)
[2017-02-10] MEDS: ACETAMINOPHEN 500 MG TAB PO SCH ×3 (05:17→20:34)
[2017-02-10] MEDS: HEPARIN/DEXTROSE 500 ML IV SCH ×2 (06:24→22:03)
[2017-02-10] MEDS: TAMSULOSIN HCL 0.4 MG CAP PO SCH (09:54)
[2017-02-10] MEDS: VENLAFAXINE XR 75 MG CAP PO SCH (09:54)
[2017-02-10] MEDS: FAMOTIDINE 20 MG TAB PO SCH ×2 (09:55→20:35)
[2017-02-10] MEDS: buPROPion SR 150 MG TAB PO SCH ×2 (09:55→20:34)
[2017-02-10] MEDS: GABAPENTIN 400 MG CAP PO SCH ×3 (09:55→20:34)
[2017-02-10] MEDS: OMEGA-3 FATTY ACIDS 1,000 MG CAP PO SCH (09:55)
[2017-02-10] MEDS: SENNOSIDES/DOCUSATE SODIUM TAB PO SCH ×2 (09:55→20:35)
[2017-02-10] MEDS: traMADol 50 MG TAB PO PRN ×2 (09:56→16:49)
--- NOTE | 2017-02-10 13:08 | HOSPPROG ---
Hospitalist Progress Note Assessment/Plan: # Acute Provoked PE - CT chest (personally reviewed and interpreted) small on right - oxygen saturations 93% on 2L Echo with normal RV function, moderate pulm HTN- initially received hep gtt, but was stopped in setting of severe bleeding-- off anticoagulation since 02/06 - IVC filter placed 02/06 by IR - heparin gtt restarted no bolus yesterday - cont warfarin orally - monitor closely for any bleeding # anemia 2/2 acute blood loss - hgb 5.7 s/p 3 U PRBC transfusion - hgb 8 this am - cautiously restarting anticoagulation - recheck H&H in am post transfusion # Acute on chronic encephalopathy with confusion, disorientation, somnolence, and visual hallucinations suspected 2/2 metabolic effects of JODIE/ hypernatremia improved today - continue to monitor # Atelectasis: acute, 2/2 immobility, give IS # Wound infections of legs: 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, s/p maggot larvae therapy, s/p Abx - appreciate ongoing surgical care - cont wound care # Hypotension- suspected multifactorial - for acute blood loss and acute illness - adrenal stim test normal- resolved SBP 130's today # Metabolic acidosis: acute on presentation, 2/2 lactic acid, has since cleared w/ IVF # JODIE: Resolved back to baseline # diet- taking PO # proph - restarting heparin gtt # dispo- > 2MN as requires ongoing monitoring - and ultimate restart of anticoag I have discussed the case with RN - patient is tolerating antioag start without complication thus far Subjective: sleepy Objective: Vital Signs Temp Pulse Resp BP Pulse Ox 36.7 C 74 20 137/84 H 96 02/10/17 11:15 02/10/17 11:15 02/10/17 11:15 02/10/17 11:15 02/10/17 11:15 Microbiology 02/04/17 18:20 Blood Culture - Final Blood 02/04/17 17:40 Blood Culture - Final Blood Laboratory Results 02/09/17 10:30 02/10/17 04:30 02/09/17 02/10/17 02/11/17 05:59 05:59 05:59 Intake Total 531 Output Total 900 575 400 Balance -900 -44 -400 PT 14.1 SEC (12.0-15.0) 02/09/17 10:30 INR 1.10 (0.83-1.16) 02/09/17 10:30 - Physical Exam Constitutional: chronically ill appearing Eyes: anicteric sclera Ears, Nose, Mouth, Throat: moist mucous membranes Cardiovascular: regular rate and rhythym Respiratory: no respiratory distress Gastrointestinal: normoactive bowel sounds Genitourinary: no bladder fullness Skin: warm Musculoskeletal: No asymmetric calves Neurologic: AAOx3 Psychiatric: interacting appropriately Lymph, Heme, Immunologic: no cervical LAD ICD10 Worksheet Patient Problems: Problems Problem Status Onset Acute leg pain Acute Cellulitis Acute Dehydration Acute Hypokalemia Acute Renal failure (ARF), acute on chronic Acute COPD (chronic obstructive pulmonary disease) Chronic 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
[2017-02-10] MEDS ORDERED: WARFARIN SODIUM 2.5 MG TAB PO ONE (16:00)
[2017-02-10] MEDS: NIACIN ER 500 MG TAB.ER PO SCH (20:34)
[2017-02-11] MEDS: ACETAMINOPHEN 500 MG TAB PO SCH ×3 (05:16→21:05)
[2017-02-11 05:49] LABS: INR 1.13 (0.83-1.16); PROTIME(PATIENT) 14.4 SEC (12.0-15.0)
[2017-02-11 06:47] LABS: CALCIUM 8.2 mg/dL (8.5-10.4); CARBON DIOXIDE 26 mEq/l (22-31); CHLORIDE 110 mEq/L (97-110); CREATININE 0.9 mg/dL (0.7-1.3); GLOMERULAR FILTRATION RATE > 60; GLUCOSE 90 mg/dL (70-100); SODIUM 145 mEq/L (134-144)
[2017-02-11 07:05] LABS: ANION GAP 9 mEq/L (8-16); POTASSIUM 3.7 mEq/L (3.5-5.2)
[2017-02-11] MEDS: ERGOCALCIFEROL 50,000 I.UNIT CAP PO SCH (07:35)
[2017-02-11] MEDS: VENLAFAXINE XR 75 MG CAP PO SCH (07:35)
[2017-02-11] MEDS: TAMSULOSIN HCL 0.4 MG CAP PO SCH (07:36)
[2017-02-11] MEDS: GABAPENTIN 400 MG CAP PO SCH ×3 (07:36→21:05)
[2017-02-11] MEDS: OMEGA-3 FATTY ACIDS 1,000 MG CAP PO SCH (07:36)
[2017-02-11] MEDS: FAMOTIDINE 20 MG TAB PO SCH ×2 (07:37→21:05)
[2017-02-11] MEDS: buPROPion SR 150 MG TAB PO SCH ×2 (07:39→21:04)
[2017-02-11] MEDS: SENNOSIDES/DOCUSATE SODIUM TAB PO SCH ×2 (07:39→21:06)
[2017-02-11] MEDS: FERROUS SULFATE 325 MG TAB PO SCH (07:40)
[2017-02-11 07:58] LABS: HEMATOCRIT 27.6 % (40.0-51.0); HEMOGLOBIN 8.9 g/dL (13.7-17.5)
[2017-02-11] MEDS: HEPARIN 10,000 UNIT/10 ML MDV IVP PRN (08:20)
--- NOTE | 2017-02-11 09:57 | SOAPPROG ---
SOAP Progress Note Assessment/Plan: Assessment and plan: 76 yo male s/p L BKA and R foot wound debridement. Amp site healing well. 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 Question will be if he is strong enough for prosthesis, Wound on Right foot is non healing and I think he will require a amputation. Timing is essential so that he will be strong enough to do transfers Overall doing well. F/u outpatient 7-10 days after discharge w Dr. Newsome S: Wants amputation on right leg O: Right wound with white slough over entire dorsum of foot. Amputation site cdi 02/07/17 16:28 02/08/17 11:20 02/11/17 09:55 Objective: Vital Signs Temp Pulse Resp BP Pulse Ox 36.7 C 72 16 117/78 95 02/11/17 08:00 02/11/17 08:00 02/11/17 08:00 02/11/17 08:00 02/11/17 08:00 Microbiology 02/04/17 18:20 Blood Culture - Final Blood 02/04/17 17:40 Blood Culture - Final Blood Laboratory Results 02/11/17 05:00 02/11/17 05:00 02/10/17 02/11/17 02/12/17 05:59 05:59 05:59 Intake Total 531 Output Total 575 1275 Balance -44 -1275 PT 14.4 SEC (12.0-15.0) 02/11/17 05:00 INR 1.13 (0.83-1.16) 02/11/17 05:00 ICD10 Worksheet Patient Problems: Problems Problem Status Onset Acute leg pain Acute Cellulitis Acute Dehydration Acute Hypokalemia Acute Renal failure (ARF), acute on chronic Acute COPD (chronic obstructive pulmonary disease) Chronic 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
--- NOTE | 2017-02-11 10:22 | HOSPPROG ---
Hospitalist Progress Note Assessment/Plan: # Acute Provoked PE - CT chest (personally reviewed and interpreted) small on right - oxygen saturations 93% on 2L Echo with normal RV function, moderate pulm HTN- initially received hep gtt, but was stopped in setting of severe bleeding-- off anticoagulation since 02/06 - IVC filter placed 02/06 by IR -cont heparin gtt - cont warfarin - would give 5 mg today as INR low - monitor closely for any bleeding # anemia 2/2 acute blood loss - hgb 5.7 s/p 3 U PRBC transfusion - hgb up to 8.9 this am - cautiously restarting anticoagulation - recheck H&H q48 # Acute on chronic encephalopathy - resolved # Atelectasis: acute, 2/2 immobility, give IS- work on weaning day time oxygen # Wound infections of legs: 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, s/p maggot larvae therapy, s/p Abx - appreciate ongoing surgical care - cont wound care # Hypotension- suspected multifactorial - for acute blood loss and acute illness - adrenal stim test normal- resolved SBP 130's today # Metabolic acidosis: acute on presentation, 2/2 lactic acid, has since cleared w/ IVF # JODIE: Resolved back to baseline # diet- taking PO # proph - heparin gtt # dispo- > 2MN as requires ongoing monitoring - and ultimate restart of anticoag I have discussed the case with RN - patient doing well - work on weaning daytime O2 today Subjective: denies pain Objective: Vital Signs Temp Pulse Resp BP Pulse Ox 36.7 C 72 16 117/78 95 02/11/17 08:00 02/11/17 08:00 02/11/17 08:00 02/11/17 08:00 02/11/17 08:00 Microbiology 02/04/17 18:20 Blood Culture - Final Blood 02/04/17 17:40 Blood Culture - Final Blood Laboratory Results 02/11/17 05:00 02/11/17 05:00 02/10/17 02/11/17 02/12/17 05:59 05:59 05:59 Intake Total 531 Output Total 575 3715 Balance -44 -1275 PT 14.4 SEC (12.0-15.0) 02/11/17 05:00 INR 1.13 (0.83-1.16) 02/11/17 05:00 - Physical Exam Constitutional: no apparent distress Eyes: anicteric sclera Ears, Nose, Mouth, Throat: moist mucous membranes Cardiovascular: regular rate and rhythym Respiratory: no respiratory distress, No expiratory wheeze Gastrointestinal: normoactive bowel sounds Genitourinary: no bladder fullness Skin: warm Musculoskeletal: No asymmetric calves Neurologic: AAOx3 Psychiatric: interacting appropriately Lymph, Heme, Immunologic: no cervical LAD ICD10 Worksheet Patient Problems: Problems Problem Status Onset Acute leg pain Acute Cellulitis Acute Dehydration Acute Hypokalemia Acute Renal failure (ARF), acute on chronic Acute COPD (chronic obstructive pulmonary disease) Chronic 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
[2017-02-11] MEDS: HEPARIN/DEXTROSE 500 ML IV SCH (12:39)
[2017-02-11] MEDS ORDERED: WARFARIN SODIUM 5 MG TAB PO ONE (16:00)
[2017-02-11] MEDS: NIACIN ER 500 MG TAB.ER PO SCH (21:04)
[2017-02-12] MEDS: HEPARIN/DEXTROSE 500 ML IV SCH (02:02)
[2017-02-12] MEDS: ACETAMINOPHEN 500 MG TAB PO SCH ×3 (05:11→21:56)
[2017-02-12 05:57] LABS: INR 1.22 (0.83-1.16); PROTIME(PATIENT) 15.4 SEC (12.0-15.0)
[2017-02-12] MEDS: OMEGA-3 FATTY ACIDS 1,000 MG CAP PO SCH (10:11)
[2017-02-12] MEDS: buPROPion SR 150 MG TAB PO SCH ×2 (10:11→20:30)
[2017-02-12] MEDS: FAMOTIDINE 20 MG TAB PO SCH ×2 (10:11→20:30)
[2017-02-12] MEDS: TAMSULOSIN HCL 0.4 MG CAP PO SCH (10:12)
[2017-02-12] MEDS: GABAPENTIN 400 MG CAP PO SCH ×3 (10:12→21:56)
[2017-02-12] MEDS: SENNOSIDES/DOCUSATE SODIUM TAB PO SCH ×2 (10:13→20:33)
[2017-02-12] MEDS: VENLAFAXINE XR 75 MG CAP PO SCH (10:20)
--- NOTE | 2017-02-12 12:27 | HOSPPROG ---
Hospitalist Progress Note Assessment/Plan: # Acute Provoked PE - CT chest (personally reviewed and interpreted) small on right - oxygen saturations 98% on 2L Echo with normal RV function, moderate pulm HTN- initially received hep gtt, but was stopped in setting of severe bleeding-- off anticoagulation since 02/06 - IVC filter placed 02/06 by IR - cont heparin gtt -> lovenox today if ok with surgery - cont warfarin - would give 5 mg as INR low - monitor closely for any bleeding # anemia 2/2 acute blood loss - hgb 5.7 s/p 3 U PRBC transfusion - hgb up to 8.9 - patient has been stable on heparin gtt - consider transition to lovenox - recheck H&H q48 # Acute on chronic encephalopathy - resolved # Atelectasis: acute, 2/2 immobility, give IS- work on weaning day time oxygen # Wound infections of legs: 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, s/p maggot larvae therapy, s/p Abx - appreciate ongoing surgical care - cont wound care # Hypotension- suspected multifactorial - for acute blood loss and acute illness - adrenal stim test normal- resolved SBP 130's today # Metabolic acidosis: acute on presentation, 2/2 lactic acid, has since cleared w/ IVF # JODIE: Resolved back to baseline # diet- taking PO # proph - heparin gtt # dispo- > 2MN as requires ongoing monitoring - and ultimate restart of anticoag I have discussed the case with RN - continue attempting to wean daytime o2- will transition to lovenox if ok with surgery Subjective: no pain Objective: Vital Signs Temp Pulse Resp BP Pulse Ox 36.5 C 71 16 128/79 H 98 02/12/17 11:26 02/12/17 11:26 02/12/17 11:26 02/12/17 11:26 02/12/17 11:26 Laboratory Results 02/11/17 05:00 02/11/17 05:00 02/11/17 02/12/17 02/13/17 05:59 05:59 05:59 Intake Total 325 Output Total 1275 800 Balance -1275 -475 PT 15.4 SEC (12.0-15.0) H 02/12/17 05:10 INR 1.22 (0.83-1.16) H 02/12/17 05:10 - Physical Exam Constitutional: chronically ill appearing Eyes: anicteric sclera Ears, Nose, Mouth, Throat: moist mucous membranes Cardiovascular: regular rate and rhythym Respiratory: no respiratory distress Gastrointestinal: normoactive bowel sounds Genitourinary: no bladder fullness Skin: warm Musculoskeletal: No asymmetric calves Neurologic: AAOx3 Psychiatric: interacting appropriately Lymph, Heme, Immunologic: no cervical LAD ICD10 Worksheet Patient Problems: Problems Problem Status Onset Acute leg pain Acute Cellulitis Acute Dehydration Acute Hypokalemia Acute Renal failure (ARF), acute on chronic Acute COPD (chronic obstructive pulmonary disease) Chronic 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
--- NOTE | 2017-02-12 14:41 | ASMTCMCOM ---
CM Note CM Note Notes: Pt continues with heparin drip. Brigid in from [facility] to check in with pt. CM sent [facility] updates on allscripts. CM to follow. Plan: [facility] - Date Signed: 02/12/2017 02:40 PM Electronically Signed By:TARIQ Velasquez
[2017-02-12] MEDS ORDERED: WARFARIN SODIUM 5 MG TAB PO ONE (16:00)
[2017-02-12] MEDS: ENOXAPARIN 80 MG/0.8 ML SYR SC SCH ×2 (16:47→20:31)
--- NOTE | 2017-02-12 16:55 | SOAPPROG ---
JUANY Progress Note Assessment/Plan: Assessment/Plan: - 76yo M s/p L BKA, R foot debridement - Reviewed events over the weekend. Really no changes - Pain well controlled, L stump in protector and incision is c/d/i - Dorsum of R foot continues to not heal despite efforts. - Question is timing of R foot vs R BKA amputation. Will ultimately need amp on that side but ideally would want to preserve as much of the foot as possible as he has fresh BILLY on contralateral side. Will discuss best option of amputation now versus delayed. 01/29/17 17:21 01/31/17 07:26 02/01/17 13:27 02/02/17 08:37 02/03/17 11:41 02/04/17 14:50 02/05/17 15:28 02/06/17 15:34 02/12/17 16:52 Subjective: Pain controlled, in good spirits Objective: Vital Signs Temp Pulse Resp BP Pulse Ox 36.8 C 70 18 138/85 H 95 02/12/17 16:00 02/12/17 16:00 02/12/17 16:00 02/12/17 16:00 02/12/17 16:00 Laboratory Results 02/11/17 05:00 02/11/17 05:00 02/11/17 02/12/17 02/13/17 05:59 05:59 05:59 Intake Total 325 Output Total 1275 800 Balance -1275 -475 PT 15.4 SEC (12.0-15.0) H 02/12/17 05:10 INR 1.22 (0.83-1.16) H 02/12/17 05:10 ICD10 Worksheet Patient Problems: Problems Problem Status Onset Acute leg pain Acute Cellulitis Acute Dehydration Acute Hypokalemia Acute Renal failure (ARF), acute on chronic Acute COPD (chronic obstructive pulmonary disease) Chronic 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
[2017-02-12] MEDS: NIACIN ER 500 MG TAB.ER PO SCH (20:30)
[2017-02-13] MEDS: ACETAMINOPHEN 500 MG TAB PO SCH ×3 (05:32→21:22)
[2017-02-13 05:51] LABS: HEMATOCRIT 28.5 % (40.0-51.0); HEMOGLOBIN 8.9 g/dL (13.7-17.5); MEAN CELL HEMOGLOBIN CONCENTR. 31.2 g/dL (32.4-36.7); RED BLOOD CELL COUNT 2.97 10^6/uL (4.40-6.38); RED CELL DISTRIBUTION WIDTH 16.2 % (11.5-15.2)
[2017-02-13 06:21] LABS: INR 1.67 (0.83-1.16); PROTIME(PATIENT) 19.7 SEC (12.0-15.0)
[2017-02-13] MEDS: buPROPion SR 150 MG TAB PO SCH ×2 (10:45→21:22)
[2017-02-13] MEDS: VENLAFAXINE XR 75 MG CAP PO SCH (10:46)
[2017-02-13] MEDS: FAMOTIDINE 20 MG TAB PO SCH ×2 (10:46→21:22)
[2017-02-13] MEDS: TAMSULOSIN HCL 0.4 MG CAP PO SCH (10:47)
[2017-02-13] MEDS: GABAPENTIN 400 MG CAP PO SCH ×3 (10:48→21:22)
[2017-02-13] MEDS: OMEGA-3 FATTY ACIDS 1,000 MG CAP PO SCH (10:48)
[2017-02-13] MEDS: ENOXAPARIN 80 MG/0.8 ML SYR SC SCH ×2 (10:49→21:24)
[2017-02-13] MEDS: SENNOSIDES/DOCUSATE SODIUM TAB PO SCH ×2 (11:44→22:16)
--- NOTE | 2017-02-13 13:23 | SOAPPROG ---
SOAP Progress Note Assessment/Plan: Assessment/Plan: - 76yo M s/p L BKA, R foot debridement - Continues to progress medically, still weaning off O2 - R foot still not healing but not grossly infected either. - L stump looks great and he has been wearing his protector diligently. - Plan will be to Tx to rehab when medically appropriate. Will likely need BKA on contralateral side but a staged fashion will give us best odds for him to be ambulatory again as I dont think he would walk again if we did brendon BKAs this admission. I discussed this with Dr Jo and she is in agreement with above. 01/29/17 17:21 01/31/17 07:26 02/01/17 13:27 02/02/17 08:37 02/03/17 11:41 02/04/17 14:50 02/05/17 15:28 02/06/17 15:34 02/12/17 16:52 02/13/17 13:21 Subjective: No new issues Objective: Vital Signs Temp Pulse Resp BP Pulse Ox 36.6 C 72 16 123/69 H 94 02/13/17 11:16 02/13/17 11:16 02/13/17 11:16 02/13/17 11:16 02/13/17 11:16 Laboratory Results 02/13/17 05:30 02/11/17 05:00 02/12/17 02/13/17 02/14/17 05:59 05:59 05:59 Intake Total 325 250 Output Total 800 705 Balance -475 -455 PT 19.7 SEC (12.0-15.0) H 02/13/17 05:30 INR 1.67 (0.83-1.16) H 02/13/17 05:30 ICD10 Worksheet Patient Problems: Problems Problem Status Onset Acute leg pain Acute Cellulitis Acute Dehydration Acute Hypokalemia Acute Renal failure (ARF), acute on chronic Acute COPD (chronic obstructive pulmonary disease) Chronic 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
[2017-02-13] MEDS ORDERED: WARFARIN SODIUM 5 MG TAB PO ONE (16:00)
--- NOTE | 2017-02-13 17:51 | HOSPPROG ---
Hospitalist Progress Note Assessment/Plan: DIAGNOSES: # Provoked PE: small on CT. -initially had been on heparin drip, this was stopped last week when he had some bleeding from his foot, and IVC filter placed -now on Coumadin with INR 1.67, continue monitoring # acute encephalopathy -multifactorial but dehydration and hypernatremia may have major role; others include dementia, medications, anemia, stress of surgery, changing to different hospital room this is 4th room, etc -resolved at this time # Acute on chronic hypoxic resp failure: due to PE. 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 Abx discontinued, wound remains considerable in depth but no signs of infection at this time # Hypotension: -BPs r now notably better after transfusions -adrenal stim test normal # dehydration and hypernatremia -improved # JODIE: Resolved back to baseline # COPD: no e/o exacerbation # Compensated diastolic HF: noted on TTE today # BPH: Flomax PLANS: -continue wound care -continue therapies -nutritional supplements -agree with surgical management issues as per Dr. Olivier -is probably stable for transfer to nursing home facility, awaiting bed availability and insurance approval SUBJECTIVE: Feeling better overall No pain in his leg stump or in in his foot at this time No other acute symptoms OBJECTIVE Vitals reviewed: Stable without fever Exam: Notably more alert and interactive and oriented than when I had last seen him, at his baseline resps not labored lungs clear BSs heart regular abd soft nondistended nontender, bowel sounds present Dressings clean and dry on foot and stump iv site ok Objective: Vital Signs Temp Pulse Resp BP Pulse Ox 36.6 C 72 16 123/69 H 94 02/13/17 11:16 02/13/17 11:16 02/13/17 11:16 02/13/17 11:16 02/13/17 11:16 Laboratory Results 02/13/17 05:30 02/11/17 05:00 02/12/17 02/13/17 02/14/17 06:59 06:59 06:59 Intake Total 325 250 Output Total 800 705 Balance -475 -455 PT 19.7 SEC (12.0-15.0) H 02/13/17 05:30 INR 1.67 (0.83-1.16) H 02/13/17 05:30 ICD10 Worksheet Patient Problems: Problems Problem Status Onset Acute leg pain Acute Cellulitis Acute Dehydration Acute Hypokalemia Acute Renal failure (ARF), acute on chronic Acute COPD (chronic obstructive pulmonary disease) Chronic 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
[2017-02-13] MEDS: NIACIN ER 500 MG TAB.ER PO SCH (21:22)
[2017-02-14] MEDS: ACETAMINOPHEN 500 MG TAB PO SCH ×3 (04:23→21:32)
[2017-02-14 05:37] LABS: INR 2.2 (0.83-1.16); PROTIME(PATIENT) 24.6 SEC (12.0-15.0)
[2017-02-14] MEDS: buPROPion SR 150 MG TAB PO SCH ×2 (10:09→21:33)
[2017-02-14] MEDS: ENOXAPARIN 80 MG/0.8 ML SYR SC SCH ×2 (10:09→21:31)
[2017-02-14] MEDS: OMEGA-3 FATTY ACIDS 1,000 MG CAP PO SCH (10:09)
[2017-02-14] MEDS: VENLAFAXINE XR 75 MG CAP PO SCH (10:09)
[2017-02-14] MEDS: FAMOTIDINE 20 MG TAB PO SCH ×2 (10:09→21:32)
[2017-02-14] MEDS: SENNOSIDES/DOCUSATE SODIUM TAB PO SCH ×2 (10:10→21:33)
[2017-02-14] MEDS: TAMSULOSIN HCL 0.4 MG CAP PO SCH (10:10)
[2017-02-14] MEDS: GABAPENTIN 400 MG CAP PO SCH ×3 (10:10→21:33)
--- NOTE | 2017-02-14 14:50 | ASMTCMCOM ---
CM Note CM Note Notes: CM met w/ pt and for dispo planning. PT/OT are recommending inpatient rehab. Pt and are curious about inpatient rehab and would like the hospitalist to put in an order to have inpatient rehab assess. CM communicated this w/ Dr. Arriaga. Pt and 's second choice would be [facility] due to close proximity to their home. Pt reports that he has also been to [facility] in the past. CM to follow. Plan: inpatient rehab vs [facility] Date Signed: 02/14/2017 02:50 PM Electronically Signed By:TARIQ Velasquez
[2017-02-14] MEDS ORDERED: WARFARIN SODIUM 2.5 MG TAB PO ONE (16:00)
--- NOTE | 2017-02-14 17:20 | HOSPPROG ---
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 Abx discontinued, wound remains considerable in depth but no signs of infection at this time # Hypotension: -BPs r now notably better after transfusions -adrenal stim test normal # dehydration and hypernatremia -improved # JODIE: Resolved back to baseline # COPD: no e/o exacerbation # Compensated diastolic HF: noted on TTE today # BPH: Flomax PLANS: -continue wound care -continue therapies -nutritional supplements -agree with surgical management issues as per Dr. Olivier -is probably stable for transfer to shelter facility SUBJECTIVE: Feeling well No pain in his leg stump or in in his foot at this time No other acute symptoms OBJECTIVE Vitals reviewed: Stable without fever Exam: As I came into room he was standing at bedside with walker and had been standing for approximately 90 sec, did sit down for fatigue at that point Very alert and interactive and well oriented resps not labored lungs clear BSs heart regular abd soft nondistended nontender, bowel sounds present Dressings clean and dry on foot and stump iv site ok Objective: Vital Signs Temp Pulse Resp BP Pulse Ox 36.8 C 73 16 110/80 93 02/14/17 15:20 02/14/17 15:20 02/14/17 15:20 02/14/17 15:20 02/14/17 15:20 Laboratory Results 02/13/17 05:30 02/11/17 05:00 02/13/17 02/14/17 02/15/17 06:59 06:59 06:59 Intake Total 250 500 Output Total 705 400 200 Balance -455 100 -200 PT 24.6 SEC (12.0-15.0) H 02/14/17 04:10 INR 2.20 (0.83-1.16) H 02/14/17 04:10 ICD10 Worksheet Patient Problems: Problems Problem Status Onset Acute leg pain Acute Cellulitis Acute Dehydration Acute Hypokalemia Acute Renal failure (ARF), acute on chronic Acute COPD (chronic obstructive pulmonary disease) Chronic 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
[2017-02-14] MEDS: NIACIN ER 500 MG TAB.ER PO SCH (21:32)
[2017-02-14 23:54] VITALS: RESP 20
[2017-02-15 05:56] LABS: INR 1.81 (0.83-1.16); PROTIME(PATIENT) 21.1 SEC (12.0-15.0)
[2017-02-15] MEDS: ACETAMINOPHEN 500 MG TAB PO SCH ×2 (06:12→15:08)
[2017-02-15] MEDS: ENOXAPARIN 80 MG/0.8 ML SYR SC SCH (08:10)
[2017-02-15] MEDS: buPROPion SR 150 MG TAB PO SCH (08:10)
[2017-02-15] MEDS: TAMSULOSIN HCL 0.4 MG CAP PO SCH (08:10)
[2017-02-15] MEDS: GABAPENTIN 400 MG CAP PO SCH ×2 (08:10→15:04)
[2017-02-15] MEDS: VENLAFAXINE XR 75 MG CAP PO SCH (08:11)
[2017-02-15] MEDS: OMEGA-3 FATTY ACIDS 1,000 MG CAP PO SCH (08:11)
[2017-02-15] MEDS: FAMOTIDINE 20 MG TAB PO SCH (08:11)
[2017-02-15 08:19] VITALS: PULSE 76; TEMP 98.5; O2SAT 91
[2017-02-15 09:02] VITALS: BP 113/86
--- NOTE | 2017-02-15 11:04 | ASMTCMCOM ---
CM Note CM Note Notes: Spoke w/pt and re; dc inpt rehab vs PB. Pt and spoke w/Brenna at [facility] and would like [facility] not [facility], notified. Date Signed: 02/15/2017 11:04 AM Electronically Signed By:Jovanna Sharif RN
[2017-02-15] MEDS: SENNOSIDES/DOCUSATE SODIUM TAB PO SCH (11:53)
--- NOTE | 2017-02-15 12:59 | SOAPPROG ---
SOAP Progress Note Assessment/Plan: Assessment/Plan: - 76yo M s/p L BKA, R foot debridement - Stump continues to heal appropriately - R foot stable, not any better but not overtly worse - wean O2, plan for dc to inpt rehab when medically appropriate. Will still likely need BKA on R but staged 01/29/17 17:21 01/31/17 07:26 02/01/17 13:27 02/02/17 08:37 02/03/17 11:41 02/04/17 14:50 02/05/17 15:28 02/06/17 15:34 02/12/17 16:52 02/13/17 13:21 02/15/17 12:57 Subjective: In good spirits, eating breakfast Objective: Vital Signs Temp Pulse Resp BP Pulse Ox 36.9 C 76 20 113/86 H 91 L 02/15/17 08:00 02/15/17 08:00 02/14/17 23:53 02/15/17 09:01 02/15/17 08:00 Laboratory Results 02/13/17 05:30 02/11/17 05:00 02/14/17 02/15/17 02/16/17 05:59 05:59 05:59 Intake Total 500 150 Output Total 400 1225 100 Balance 100 -1075 -100 PT 21.1 SEC (12.0-15.0) H 02/15/17 04:21 INR 1.81 (0.83-1.16) H 02/15/17 04:21 ICD10 Worksheet Patient Problems: Problems Problem Status Onset Acute leg pain Acute Cellulitis Acute Dehydration Acute Hypokalemia Acute Renal failure (ARF), acute on chronic Acute COPD (chronic obstructive pulmonary disease) Chronic 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
[2017-02-15] MEDS ORDERED: WARFARIN SODIUM 5 MG TAB PO ONE ×2 (14:45→16:00)
--- NOTE | 2017-02-15 14:48 | PDIAF ---
- Diagnosis Diagnosis: New BKA left leg, acute PE, nonhealing wound right foot, encephalopathy Code Status: Full Code - Medication Management Discharge Medications: Medications to Continue on Transfer Alendronate Sodium [Fosamax 70 MG (*)] 70 mg PO PRYOR@0700 10/27/15 [Last Taken 08/02] Aspirin [Aspirin 81mg (*)] 81 mg PO DAILY 10/27/15 [Last Taken 01/27/17] Ergocalciferol [Vitamin D2 (*)] 50,000 unit PO PRYOR@0700 10/27/15 [Last Taken 08/02] Hydrochlorothiazide [HCTZ (*)] 12.5 mg PO DAILY 10/27/15 [Last Taken 01/27/17] Niacin ER [Niaspan 500 mg (*)] 500 mg PO HS 10/27/15 [Last Taken 01/27/17] Ranitidine HCl [Zantac] 150 mg PO BID 10/27/15 [Last Taken 01/27/17] buPROPion SR [Wellbutrin 150mg SR (*)] 150 mg PO BID 10/10/16 [Last Taken ] Ferrous Sulfate [Ferrous Sulf 325 MG (*)] 325 mg PO PRYOR@0900 01/29/17 [Last Taken 01/21/17] Fish Oil/Dha/Epa [Fish Oil 1,200 mg Fish Oil] 1 each PO DAILY 01/29/17 [Last Taken 01/27/17] Gabapentin [Gabapentin 800 mg] 800 mg PO TID 01/29/17 [Last Taken 01/27/17] Tamsulosin HCl [Flomax 0.4 MG (*)] 0.8 mg PO DAILY 01/29/17 [Last Taken 01/27/17 ] Venlafaxine Xr [Effexor Xr 75MG (*)] 225 mg PO DAILY 01/29/17 [Last Taken ] Ondansetron Odt [Zofran Odt 4 mg (*)] 4 mg PO Q4HRS PRN tab 02/15/17 [Last Taken Unknown] Polyethylene Glycol 3350 [Miralax 17 gm (*)] 17 gm PO DAILY PRN pkt 02/15/17 [ Last Taken Unknown] Warfarin Sodium [Coumadin 4MG (*)] 4 mg PO DAILY16 tab 02/15/17 [Last Taken Unknown] traMADol [Ultram 50 mg (*)] 50 mg PO Q6HRS PRN tab 02/15/17 [Last Taken Unknown ] Discharge Medications: Refer to the Discharge Home Medication list for PRN reason. PICC Care - Routine: N/A - Orders Services needed: Registered Nurse, Certified Pumper Gager, Master Coffin Maker , Physical Therapy, Occupational Therapy Isolation Type: None Diet Recommendation: cardiac -low fat low salt Diet Texture: Regular Texture Diet Wound Care Instructions: Cover right foot wound with silvasorb and non border mepilex foam. Secure with kerlix. Venous stasis ulcer Right posterier lower leg just above ankle apply Allevyn and silvasorb after cleaning. Left leg amputation stump, protect stump and incision line from pressure friction and abrasion. No weight bear on this tissue, keep in protective cover device while in bed or in chair or other situations where injury to tissue could occur. For any questions related any of his wounds contacted Dr. Kurt Newsome at [phone] Sutures/Jonas Site: Per Dr Newsome Activity/Weight Bearing Restrictions: No weight-bearing to left leg stump tissue - Labs/Radiology BMP Date: 02/20/17 PT/INR Date: 02/17/17 (February 16 will be day 7 of Coumadin for patient, should recheck Coumadin at least once more in the 1st week and then as indicated ) - Follow Up Care Current Providers and Referrals: Kurt Newsome MD [Medical Doctor] -
--- NOTE | 2017-02-15 14:57 | PDDCSUM ---
Discharge Summary Discharge Summary: DISCHARGE DIAGNOSES: CONSULTANTS: PROCEDURES: HOSPITAL COURSE SUMMARY: PENDING TEST RESULTS: MEDICATION CHANGES: FOLLOW-UP PLAN: Greater than 35 minutes bedside and care coordination time today
--- NOTE | 2017-02-15 15:47 | WOCRNPDOC ---
WOCRN Advanced Assessment Note - Skin Integrity Problem, Advanced Assess Left Foot Dressing Type: Optilock (4x4) Dressing Description: Clean/Dry, Intact Exudate Amount: Moderate Exudate Color: Clear Exudate Characteristic(s): Serous Integumentary Issue Intervention: Visualized Under Dressing Arlyn Wound Tissue: Erythema Arlyn Wound Swelling: Mild Wound Bed Color: Brown, Yellow Wound Bed Constitution: Mixed Loose & Adhered Slough/Eschar (95% slough) Wound Edges: Not Attached Site Odor: Moderate, Pungent Skin Integrity Problem Comment: Wound 100% necrotic moist yellow slough. No change in dimensions. Slough layer is quite thick. No debridement options exist at this point. Patient's tissue is necrosing too fast for healing to be possible. Keep wound clean and covered. Wound care will sign off. Please reconsult prn. Right Posterior Lower Leg Arterial Ulcer Dressing Type: Allevyn Life Dressing Description: Clean/Dry, Intact Exudate Amount: Minimal Exudate Characteristic(s): Serous Integumentary Issue Intervention: Visualized Under Dressing Arlyn Wound Tissue: Erythema, Painful/Tender Arlyn Wound Swelling: None Wound Bed Color: [place] Wound Bed Constitution: Loose Slough (100%) Wound Edges: Not Attached, Punched Out Skin Integrity Problem Comment: Slough was removed mechanically revealing a pink /red non granular wound bed. There is no change in wound dimensions since previous assessment. Will update orders to help keep the wound clean and filled with antimicrobial hydrofera blue foam. Wound care will sign off. Genesis PEREA and Eloisa PEREA in room for care.
--- NOTE | 2017-02-15 17:21 | ASDISCHSUM ---
Discharge Information Plan Status:Inpatient Rehab Medically Cleared to Leave: Discharge Date:02/15/2017 03:20 PM CM D/C Disposition:[facility] Acute ADT D/C Disposition:[facility] IP Projected Discharge Date:02/15/2017 03:00 PM Transportation at D/C:Wheelchair Van Discharge Delay Reason: Follow-Up Date:02/15/2017 03:00 PM Discharge Slot: Final Diagnosis: Placement Information Referral Type:*Retirement/SNF Referral ID:[id number] Provider Name: Address 1: Phone Number: Address 2: Fax Number: City: Selection Factors: State: Referral Type:Rehabilitation Hospital Referral ID:[id number] Provider Name:[facility] Address 1:[address] [place] [address] Phone Number: Address 2: Fax Number: [facility]:[place] Selection Factors: State:[place] Patient Contact Information Contact Name:FRANCE Relationship: Address:[facility] [address] Work Phone: City:[place] Alternate Phone: State/Zip Code:[place] [address] Email: Financial Information Financial Class: Primary Plan Desc:MEDICARE INPATIENT Primary Plan Number:[id number] Secondary Plan Desc:[facility] Secondary Plan Number:[id number] Assessment Information LACE LACE Length of stay for Answers: 1 day current admission Acuity / Level of Care Answers: Was the patient admitted to hospital via the emergency department? Yes: Comorbidities - select Answers: Peripheral vascular all that apply disease Chronic pulmonary disease Mild liver or renal disease Emergency dept visits in Answers: 1 last 6 months Score: 10 Date Signed: 01/30/2017 10:54 AM Electronically Signed By:Karen Amaro RN [facility] CM Progress Note CM Note CM Note Notes: Patient preop today for Left lower leg amputation. Lives independent with his in [place], No other support. Likely needs SNF on dc/ He reports he has previously stayed at [facility] and is agreeable to going there again. Final needs yet to be determined. CM to follow. Date Signed: 01/30/2017 10:57 AM Electronically Signed By:Karen Amaro RN [facility] CM Progress Note CM Note CM Note Notes: CM spoke with Minor from [facility]. They have accepted pt after he completes maggot treatment. Anticipate this may be sometime next week. Date Signed: 02/02/2017 03:30 PM Electronically Signed By:RODNEY Mcmullen [facility] CM Progress Note CM Note CM Note Notes: Chart reviewed. Per therapies SNF is appropriate upon discharge. [facility] after biological therapy is complete. CM to follow. Date Signed: 02/04/2017 09:13 AM Electronically Signed By:Karen Amaro RN [facility] CM Progress Note CM Note CM Note Notes: CM spoke w/ Dr. Arriaga this regarding d/c POC. Esdrasiaptes that pt will d/c tomorrow to [facility]. CM sent updates to [facility] and informed them of the tenative d/c. CM to follow. Date Signed: 02/05/2017 11:08 AM Electronically Signed By:TARIQ Velasquez [facility] CM Progress Note CM Note CM Note Notes: Updates sent to [facility]. CM spoke w/ ELIAZAR Fuentes regarding d/c POC. Pt will start a heprin drip tomorrow. CM to follow. Date Signed: 02/07/2017 03:40 PM Electronically Signed By:TARIQ Velasquez [facility] CM Progress Note CM Note CM Note Notes: CM provided updates to [facility] that pt will not be discharging today. CM sent updates via [employer] to [facility]. Pt will start a heprin drip then switched to coumadin. CM to follow. Date Signed: 02/09/2017 11:06 AM Electronically Signed By:TARIQ Velasquez [facility] Progress Note CM Note CM Note Notes: Pt continues with clay Rainey in from [facility] to check in with pt. CM sent [facility] updates on [employer]. CM to follow. Plan: [facility] - SNF Date Signed: 02/12/2017 02:40 PM Electronically Signed By:TARIQ Velasquez [facility] Progress Note CM Note CM Note Notes: CM met w/ pt and for dispo planning. PT/OT are recommending inpatient rehab. Pt and are curious about inpatient rehab and would like the hospitalist to put in an order to have inpatient rehab assess. CM communicated this w/ Dr. Arriaga. Pt and 's second choice would be [facility] due to close proximity to their home. Pt reports that he has also been to [facility] in the past. CM to follow. Plan: inpatient rehab vs [facility] Date Signed: 02/14/2017 02:50 PM Electronically Signed By:TARIQ Velasquez [facility] Progress Note CM Note CM Note Notes: Spoke w/pt and re; dc inpt rehab vs PB. Pt and spoke w/Brenna at [facility] and would like [facility] as pt not able to pay, notified. Date Signed: 02/15/2017 11:04 AM Electronically Signed By:Jovanna Sharif RN Case Management Discharge Plan Note Case Management Discharge Discharge Order Complete? Answers: Yes Patient to Obtain Answers: Other Notes: [facility] Medications Transportation Arranged Answers: Other Notes: [employer] Transport Transport will Pick (Date 02/15/2017 03:00 PM & Time) Faxed Final Orders Answers: Yes Family Notified Answers: Yes Discharge Comments Notes: Michelle/omaira HUDSON, final orders faxed, RN to call reportJoelle Brenna at [facility] notified. Date Signed: 02/15/2017 03:30 PM Electronically Signed By:Jovanna Sharif RN Intervention Information
[2017-02-16] MEDS ORDERED: WARFARIN SODIUM 4 MG TAB PO SCH (16:00)
== END 2017-02-15 15:20 | DRG 579 ==
LOC: F3E 16:53 → F2N 01-31 17:24 → F3E 02-01 12:48
PROVIDERS: ADMIT Internal Medicine; ATTEND Internal Medicine
PROC: 0Y6J0Z1 Detachment at Left Lower Leg, High, Open Approach (ICD-10-PCS; principal; 2017-01-30 13:30)
PROC: 0HDMXZZ Extraction of Right Foot Skin, External Approach (ICD-10-PCS; principal; 2017-01-30 13:30)
PROC: 02HV33Z Insertion of Infusion Device into Superior Vena Cava, Percutaneous Approach (ICD-10-PCS; 2017-02-02)
PROC: 06H033Z Insertion of Infusion Device into Inferior Vena Cava, Percutaneous Approach (ICD-10-PCS; 2017-02-06)
PROC: 30233N1 Transfusion of Nonautologous Red Blood Cells into Peripheral Vein, Percutaneous Approach (ICD-10-PCS; 2017-02-06)
DX: L97.223 Non-pressure chronic ulcer of left calf with necrosis of muscle (principal); I26.99 Other pulmonary embolism without acute cor pulmonale; J96.21 Acute and chronic respiratory failure with hypoxia; G93.49 Other encephalopathy; L03.116 Cellulitis of left lower limb; M31.9 Necrotizing vasculopathy, unspecified; N17.9 Acute kidney failure, unspecified; D62 Acute posthemorrhagic anemia; L97.519 Non-pressure chronic ulcer of other part of right foot with unspecified severity; I95.81 Postprocedural hypotension; E86.0 Dehydration; E86.1 Hypovolemia; I73.9 Peripheral vascular disease, unspecified; J44.9 Chronic obstructive pulmonary disease, unspecified; Z72.0 Tobacco use
CPT/HCPCS: 85520-90; 96365; 97110-GO; 97110-GP; 97162-GP; 97166-GO; 97530-GO; 97530-GP; 97535-GO; C1751; C1769; G8978-GP-CL; G8978-GP-CM; G8979-GP-CJ; G8979-GP-CK; G8987-GO-CK; G8987-GO-CL; G8988-GO-CJ; G8989-GO-CI; J0735; J0834; J1100; J1170; J1335; J1644; J1650; J2001; J2405; J2704; J3010; J3370; P9016; Q9967

== ENCOUNTER 2017-02-15 12:22 | Inpatient (IN) | payer OTHER ==
--- NOTE | 2017-02-15 16:41 | WOCRNPDOC ---
WOCRN Advanced Assessment Note - Skin Integrity Problem, Advanced Assess Right Dorsal Foot Dressing Type: Optilock Dressing Description: Clean/Dry, Intact Exudate Amount: Moderate Exudate Color: Clear Exudate Characteristic(s): Serous Integumentary Issue Intervention: Visualized Under Dressing Arlyn Wound Tissue: Erythema, Macerated (minimal), Painful/Tender (extreem) Arlyn Wound Swelling: Mild Wound Bed Color: Brown, Yellow Wound Bed Constitution: Mixed Loose & Adhered Slough/Eschar (95% slough, 5% evolving eschar) Wound Edges: Not Attached, Thick Site Odor: Slight, Pungent Site Measurement - Head-to-Toe Length X Width X Depth (cm): 10.7x5.8x slough Skin Integrity Problem Comment: Wound with 100% necrosis. Larval therapy attempted for 5 days then discontinued. Patient failed larval therapy as the tissue was necrosing faster than the larvae were able to manage and the dressing was very painful for the patient. Wound care is no longer attempting to debride the wound by any method as the only beneficial course would be surgical debridement. Keeping wound from becoming infected and drainage management is the current goal. Wound was assessed before patient left [facility], approximately 30 min before he was admitted to Rehab. Right Posterior Lower Distal Leg Arterial Ulcer Dressing Type: Allevyn Life Dressing Description: Clean/Dry, Intact Exudate Amount: Minimal Exudate Characteristic(s): Serous Integumentary Issue Intervention: Visualized Under Dressing Arlyn Wound Tissue: Erythema, Painful/Tender Arlyn Wound Swelling: None Wound Bed Color: Yellow Wound Bed Constitution: Loose Slough Site Measurement - Head-to-Toe Length X Width X Depth (cm): 1x1x0.3 Skin Integrity Problem Comment: Patient's wound assessed before D/C to rehab. Wound is 100% slough that was mechanically debrided to reveal a clean wound bed with red/pink non granular tissue. Discussed wounds and gave report at rehab to ELIAZAR Diaz. Patient will need a dressing to fill wound bed to keep slough from reforming again. Wound care will sign off this patient. Please reconsult prn.
[2017-02-15] MEDS ORDERED: POLYETHYLENE GLYCOL 3350 17 GM PKT PO PRN (17:10)
[2017-02-15] MEDS ORDERED: ONDANSETRON DISINTEGRATING 4 MG TAB PO PRN (17:10)
--- NOTE | 2017-02-15 17:13 | PDOREHIP ---
Admission [facility] - Admission - 3 Day Assessment Period Admission Date/Day 1: 02/15/17 Day 2: 02/16/17 Day 3: 02/17/17 - Active Diagnoses Comorbidities and Co-existing Conditions at Admission: 07755. PVD or PAD - Skin Conditions Unhealed Pressure Ulcer (1 or more/Stage 1 or >)-Admission: 0. No
--- NOTE | 2017-02-15 18:12 | GHP ---
[f rep st] HISTORY AND PHYSICAL POST ADMISSION PHYSICIAN EVALUATION AND REHABILITATION TREATMENT PLAN DATE OF ADMISSION: 02/15/2017 REFERRING FACILITY: [facility] REFERRING PHYSICIAN: Dr. Arriaga IMPAIRMENT GROUP: 5.4. DATE OF ONSET: 01/29/2017. CONSULTING PHYSICIANS: He was seen in consultation by General Surgery, Dr. Newsome; Infectious Disease, Dr. Gipson; Pulmonary and Critical Care, Dr. Luciano; and Interventional Radiology, Dr. Yanez. REHABILITATION DIAGNOSIS: Debility status post left dxajm-zja-zing amputation. ETIOLOGIC DIAGNOSIS: Unilateral lower limb below the knee. DATE OF SURGERY: 01/31/2017. HISTORY OF PRESENT ILLNESS: This patient was admitted to [facility] for an elective an elective left vuuie-aha-pjmp amputation due to recurrent infections, ulceration, and cellulitis of the left foot despite conservative management. On admission, he was noted to have acute kidney injury and dehydration. He had been treated with IV antibiotics which were continued through his surgery. He also had surgical debridement of the right foot on 01/29/2017 for an arterial ulcer on the dorsum of the foot. This was also treated with maggot debridement. He had acute encephalopathy after the surgery, which resolved. He had respiratory distress and was diagnosed with pulmonary embolus. He briefly required Levophed for hypotension. He was treated with IV heparin for the pulmonary embolus and subsequently had bleeding. There was a wound VAC for the left nyqws-aiw-kewg amputation, which was discontinued on February 06, possibly due to the bleeding. Given the pulmonary embolus, he was subsequently treated with enoxaparin and warfarin, and enoxaparin was discontinued once he became therapeutic on the warfarin. After his bleeding, he had anemia and required 2 transfusions. He was medically stabilized, participating in therapies and appropriate for inpatient rehabilitation. Notable labs and studies during his stay: On 02/13/2017, he had stable anemia with a hemoglobin of 8.9 and hematocrit of 28.5. There was leukocytosis, which had resolved by 02/13/2017. His last INR today was 1.81, and previously yesterday was 2.2. Serum chemistry initially showed dehydration and acute kidney injury, but by 02/05/2017, normalized with a BUN of 15 and a creatinine of 0.9. His sodium was slightly high at 145. He had liver function tests on , which, other than a slightly low albumin at 2.4, were normal. He had an ACTH stimulation test for hypotension on 02/04 and had normal response. He has had chronic diarrhea. C difficile toxin was checked on 02/06/2017, and was negative. Given his anemia, he had a test for occult blood in the stool, and this was negative. He had a CT arteriogram of the abdomen and pelvis on 2016, which showed patent aortoiliac endograft with no rupture and no endoleak but increase of nonocclusive laminated thrombus in the aortic portion of the endograft. He had worsening stenosis of the origin of the superior mesenteric artery at 50%. He had occlusion of the celiac axis and inferior mesenteric artery origins. Incidentally, there was severe chronic disk degeneration at L2- L3, which was worse since 2016 and mild superior cortical endplate compression deformity of L3. PRECAUTIONS: He is a fall risk. He has orthopedic precautions of nonweightbearing on the left lower leg residual limb. ACTIVE COMORBIDITIES: He has no active tier 1, tier 2, or tier 3 comorbidities. PAST MEDICAL HISTORY: 1. Peripheral vascular disease. 2. COPD. 3. Benign prostatic hypertrophy. 4. Chronic lower extremity wounds. 5. Depression. 6. Osteoporosis. 7. Abdominal aortic aneurysm with aortoiliac endograft in 2006. 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 9. Left hip avascular necrosis. 10. Left wrist fracture in 2016. 11. Hypertension. PAST SURGICAL HISTORY: 1. Right carotid stenting. 2. Bilateral total hip arthroplasty. 3. Left shoulder surgery. ALLERGIES: He is allergic to amoxicillin clavulanate and guaifenesin. He reports history of a rash from a nicotine patch. PRE-HOSPITAL MEDICATIONS: 1. Alendronate 70 mg p.o. q. Sunday. 2. Aspirin 81 mg p.o. q. day. 3. Ergocalciferol 50,000 units p.o. q. Sunday. 4. Hydrochlorothiazide 12.5 mg p.o. q. day. 5. Niacin 500 mg p.o. q.h.s. 6. Ranitidine 150 mg p.o. b.i.d. 7. Verapamil 120 mg p.o. q. day. 8. Bupropion SR 150 mg p.o. b.i.d. 9. Ferrous sulfate 325 mg p.o. q. Sunday. 10. Fish oil 1200 mg p.o. q. day. 11. Gabapentin 800 mg p.o. t.i.d. 12. Ibuprofen 600 mg p.o. q.4 hours p.r.n. 13. Metoprolol XR 25 mg p.o. q. day. 14. Tamsulosin 0.8 mg p.o. q. day. 15. Venlafaxine 225 mg p.o. q. day. ADMISSION MEDICATIONS: 1. Alendronate 70 mg p.o. q. Sunday. 2. Aspirin 81 mg p.o. q. day. 3. Ergocalciferol 50,000 units p.o. q. Sunday. 4. Hydrochlorothiazide 12.5 mg p.o. q. day. 5. Niacin ER 500 mg p.o. q.h.s. 6. Ranitidine 150 mg p.o. b.i.d. 7. Bupropion SR 150 mg p.o. b.i.d. 8. Ferrous sulfate 325 mg p.o. q. Sunday. 9. Fish oil 1200 mg p.o. q. day. 10. Gabapentin 800 mg p.o. t.i.d. 11. Tamsulosin 0.8 mg p.o. q. day. 12. Venlafaxine 225 mg p.o. q. day. 13. Ondansetron 4 mg p.o. q.4 hours p.r.n. 14. Polyethylene glycol 17 g p.o. q. day p.r.n. 15. Warfarin 4 mg p.o. q. day. 16. Tramadol 50 mg p.o. q.6 hours p.r.n. FAMILY HISTORY: Noncontributory. PSYCHOSOCIAL HISTORY: He is . He lives with his . They have no children. They live in a mobile home with 3 steps to enter. He continues to smoke. He does not use alcohol. 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 REVIEW OF SYSTEMS: He denies any pain. He continues to have diarrhea which has been chronic for years. He has a cough and brings up occasional sputum. He denies dyspnea. He denies chest pain or palpitations. He denies nausea or vomiting and has a good appetite. He denies dysuria or urinary frequency. He denies weakness, numbness, or tingling of the extremities, vision change, or difficulty swallowing. He has 2 ulcerations on his right lower extremity but, otherwise, denies any skin rash or skin breakdown. He and his report that his weight fluctuates between about 200 pounds and 175 pounds with no clear recent trend. Otherwise, a 10-point review of systems is negative. PHYSICAL EXAMINATION: VITAL SIGNS: Blood pressure is 125/84, heart rate is 70 , respiratory rate is 16, oxygen saturation is 91% on room air. Temperature is 36.7 degrees centigrade. His weight is 79.7 kg for a body mass index of 22.6. GENERAL: This is a pale elderly man lying in bed, wearing hospital gown, cooperative and in no acute distress. HEENT: Extraocular movements are intact. Pupils are equal, round, and reactive to light. Mucous membranes are somewhat dry. There are no oropharyngeal mucosal lesions and no posterior oropharyngeal mucus. He has an uncrowded airway, Mallampati class 2. NECK: Supple. HEART: Regular rate and rhythm. There is a diastolic murmur heard best at the left sternal border. LUNGS: Clear to auscultation bilaterally. ABDOMEN: Soft, nontender, nondistended with normoactive bowel sounds and no hepatosplenomegaly. EXTREMITIES: Radial pulses are 2+ bilaterally. There is no cyanosis or clubbing. There is trace edema to the right lower extremity. The right dorsal foot is bandaged. The dorsalis pedis pulse is not palpable. He has mild erythema to the skin of his foot, which is blanching. The left lower extremity has a urtnw-uts-pehe amputation, incision is sutured. There is scant eschar along the suture line. There is no drainage, erythema, or dehiscence. NEUROLOGIC: He is alert and oriented x3. Cranial nerves 2-12 are grossly intact. There is no focal weakness, and sensation is intact to light touch. Current level of function per the pre-admission screen. Regarding diet, feeding , and swallowing, he is on a regular diet. For dressing, he required set up with standby assist and voice cues. Toileting was accomplished with standby assist to moderate assist for clothing management, standby assist for transfer from the edge of the bed, and standby assist for transfer from the edge of the bed to a drop-arm commode. Regarding bladder, he had occasional incontinence. Bowel was continent. Transfers required moderate assistance with voice cues, and then he could maintain standing for 30-90 seconds. He used a front-wheeled walker as well as a sliding board. His endurance was fair. Regarding cognition , he was noted to be able to follow multiple step commands. IMPRESSION: This patient is a 76-year-old man who underwent a left below-the- knee amputation on 01/31/2017 due to severe peripheral vascular disease and nonhealing infected ulcers. His hospital course was complicated by encephalopathy, a pulmonary embolus, bleeding while on heparin, and need for blood transfusions. He subsequently stabilized and is appropriate for inpatient rehabilitation where he will benefit from physical and occupational therapy to optimize mobility and activities of daily living with goal of discharge home with his . He has 3 steps to enter his home and is on 1 level subsequently. He will benefit from nursing care for fall risk, wound healing, skin integrity, bowel and bladder, medication administration, and medication education. He will benefit from the care of a physician regarding cardiorespiratory status, anticoagulation, and anemia. His goal is to return home with his and family support. For a safe discharge, it is anticipated that he will achieve modified independence for grooming and dressing and transfers from bed to wheelchair, wheelchair to commode, and wheelchair to tub bench. He will be independent with bed mobility. He will require supervision for bathing. He will have modified independence with a wheelchair for household distances. He will likely require continued assistance for meal preparation, household management, and shopping. He will receive therapy with physical and occupational therapy on a modified schedule for 60-90 minutes per day for each discipline on 7 days of the week to total 15 hours a week or more. His expected duration of stay is 7-10 days. It is anticipated that, upon discharge, he will continue to benefit from home health services including a nurse's aide, occupational therapy, physical therapy , and an amputation support group. PLAN: 1. Debility, status post left mfsjw-bpv-dtql amputation. PT and OT to optimize mobility and ADLs with a goal of discharge home at the wheelchair level. 2. Eudwi-chp-ctyt amputation. Will have attention of nursing regarding wound healing. He will be maintained in a stump protector, and issues of followup and suture removal will be discussed with his surgeon. He is not currently in any pain. 3. Chronic right lower extremity ulcers. The eventual plan is a right below- the-knee amputation as well. There are wound care orders from wound nurse consultation at the hospital, and these will be continued. 4. COPD. He reports history of using inhalers at home, but not for many years. He will be maintained on oxygen and incentive spirometry. 5. Anemia, status post blood transfusion x2. His blood counts will be monitored. I have ordered an iron panel to determine his continued need for iron supplementation. 6. Pulmonary embolus. These were small. He is appropriately anticoagulated. Will continue warfarin. Will check INR in the morning and will have subsequent warfarin management per the pharmacy. 7. Chronic diarrhea may be related to mesenteric artery ischemia. He will be monitored. He had a negative test for Clostridium difficile toxin. 8. History of hypertension. He is not currently hypertensive. He had hypotension in the hospital requiring pressors. Continue hydrochlorothiazide.. His blood pressure will be monitored, and antihypertensives will be adjusted if indicated. 9. Osteoporosis with vertebral compression fracture. Continue ergocalciferol on a weekly basis. Alendronate has been held as is the hospital protocol, and this should be resumed after he discharges. 10. Peripheral vascular disease. Continue aspirin, niacin, and fish oil. 11. Skin ulcers on the right lower extremity. These are related to peripheral vascular disease and are not pressure ulcers. Continue wound management per orders out of the hospital. 12. Benign prostatic hypertrophy. Continue tamsulosin. 13. Pain management seems to be adequate with only acetaminophen. 14. History of depression. Continue bupropion and venlafaxine. 15. Diastolic dysfunction and pulmonary hypertension were seen on echocardiogram done in the hospital. These were not severe. They may be contributing to his hypoxemia. Other than oxygen supplementation, there is no need for specific treatment at present. /[id number]/MODL MTDD
[2017-02-15] MEDS: FAMOTIDINE 20 MG TAB PO SCH (20:46)
[2017-02-15] MEDS: NIACIN ER 500 MG TAB.ER PO SCH (20:46)
[2017-02-15] MEDS: GABAPENTIN 400 MG CAP PO SCH (20:46)
[2017-02-15] MEDS: buPROPion SR 150 MG TAB PO SCH (20:46)
[2017-02-16 07:50] LABS: % IMMATURE GRANULYOCYTES 0.3 % (0.0-1.1); ABSOLUTE IMMATURE GRANULOCYTES 0.03 10^3/uL (0.00-0.10); ABSOLUTE NRBC COUNT 0.04 10^3/uL (0-0.01); ADD DIFF? NO; ADD MORPH? NO; ADD SCAN? NO; ATYPICAL LYMPHOCYTE FLAG 0 (0-99); FRAGMENT RBC FLAG 0 (0-99); HEMATOCRIT 30.2 % (40.0-51.0); HEMOGLOBIN 9.4 g/dL (13.7-17.5); LEFT SHIFT FLG 10 (0-99); LIPEMIA HEMOLYSIS FLAG 80 (0-99); MEAN CELL HEMOGLOBIN 29.8 pg (27.9-34.1); MEAN CELL HEMOGLOBIN CONCENTR. 31.1 g/dL (32.4-36.7); MEAN CELL VOLUME 95.9 fL (81.5-99.8); MEAN PLATELET VOLUME 9.7 fL (8.7-11.7); NRBC-AUTO% 0.4 % (0.0-0.2); PLATELET CLUMPS FLAG 0 (0-99); PLATELET COUNT 300 10^3/uL (150-400); RED BLOOD CELL COUNT 3.15 10^6/uL (4.40-6.38); RED CELL DISTRIBUTION WIDTH 16.2 % (11.5-15.2)
[2017-02-16 08:02] LABS: INR 1.7 (0.83-1.16); PROTIME(PATIENT) 20.1 SEC (12.0-15.0)
[2017-02-16 08:12] LABS: ALANINE AMINOTRANSFERASE 36 IU/L (21-72); ALBUMIN 2.8 g/dL (3.5-5.0); ALKALINE PHOSPHATASE 64 IU/L (38-126); ANION GAP 10 mEq/L (8-16); ASPARTATE AMINOTRANSFERASE 22 IU/L (17-59); BILIRUBIN,TOTAL 0.3 mg/dL (0.1-1.4); CALCIUM 8.8 mg/dL (8.5-10.4); CARBON DIOXIDE 27 mEq/l (22-31); CHLORIDE 106 mEq/L (97-110); CREATININE 1.1 mg/dL (0.7-1.3); GLOMERULAR FILTRATION RATE > 60; GLUCOSE 85 mg/dL (70-100); POTASSIUM 4.2 mEq/L (3.5-5.2); SODIUM 143 mEq/L (134-144); TOTAL PROTEIN 5.5 g/dL (6.3-8.2)
[2017-02-16 08:22] LABS: % SATURATION 18 % (20-55); TOTAL IRON BINDING CAPACITY 255 ug/dL (260-490)
[2017-02-16] MEDS: OMEGA-3 FATTY ACIDS 1,000 MG CAP PO SCH (08:30)
[2017-02-16] MEDS: buPROPion SR 150 MG TAB PO SCH ×2 (08:30→20:54)
[2017-02-16] MEDS: TAMSULOSIN HCL 0.4 MG CAP PO SCH (08:31)
[2017-02-16] MEDS: ASPIRIN 81 MG CHEWABLE TAB PO SCH (08:31)
[2017-02-16] MEDS: GABAPENTIN 400 MG CAP PO SCH ×3 (08:31→20:54)
[2017-02-16] MEDS: HYDROCHLOROTHIAZIDE 12.5 MG CAP PO SCH (08:31)
[2017-02-16] MEDS: FAMOTIDINE 20 MG TAB PO SCH ×2 (08:31→20:54)
[2017-02-16] MEDS: VENLAFAXINE XR 75 MG CAP PO SCH (08:32)
--- NOTE | 2017-02-16 12:10 | SOAPPROG ---
SOAP Progress Note Assessment/Plan: Assessment: # Debility, status post left muldk-ncp-ioxb amputation 01/30/2017. * PT and OT to optimize mobility and ADLs with a goal of discharge home at the wheelchair level. # Jbgfy-rja-olxz amputation. * Wound care per nursing. * Continue stump protector, and issues of followup and suture removal will be discussed with his surgeon. He is not currently in any pain. # Chronic right lower extremity ulcers. The eventual plan is a right below-the- knee amputation as well. There are wound care orders from wound nurse consultation at the hospital, and these will be continued. # COPD. He reports history of using inhalers at home, but not for many years. He will be maintained on oxygen and incentive spirometry. # Anemia, status post blood transfusion x2. * Improving on labs 02/16/17 * Iron-deficient. # Pulmonary embolus. * INR subtherapeutic X 2 days. Bridge with enoxaparin. * Continue management per pharmacy. # History of hypertension. He is not currently hypertensive. He had hypotension in the hospital requiring pressors. * Continue hydrochlorothiazide.. His blood pressure will be monitored, and antihypertensives will be adjusted if indicated. # Osteoporosis with vertebral compression fracture. Continue ergocalciferol on a weekly basis. Alendronate has been held as is the hospital protocol, and this should be resumed after he discharges. # Peripheral vascular disease. Continue aspirin, niacin, and fish oil. # Peripheral neuropathy RLE. # Benign prostatic hypertrophy. Continue tamsulosin. # Pain management seems to be adequate with only acetaminophen. # History of depression. Continue bupropion and venlafaxine. # Diastolic dysfunction and pulmonary hypertension were seen on echocardiogram done in the hospital. Appears compensated. Continue O2 PRN. 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 He will be monitored. He had a negative test for Clostridium difficile toxin. 02/16/17 12:37 Subjective: Reports poor sleep last night. Does not know why. Denies pain or dyspnea. Says he went to bed and then suddenly found himself wide awake. Eventually he got some sleep later in the night. Has began work with therapies and feels good about. Objective: Vital Signs Temp Pulse Resp BP Pulse Ox 36.7 C 82 16 106/77 95 02/16/17 07:57 02/16/17 07:57 02/16/17 07:57 02/16/17 08:31 02/16/17 07:57 Laboratory Results 02/16/17 06:20 02/16/17 06:20 02/15/17 02/16/17 02/17/17 05:59 05:59 05:59 Intake Total 300 420 Output Total 774 200 Balance -474 220 PT 20.1 SEC (12.0-15.0) H 02/16/17 06:20 INR 1.70 (0.83-1.16) H 02/16/17 06:20 Physical Exam - Physical Exam General Appearance: WD/WN, alert, no apparent distress Respiratory: normal breath sounds, No crackles, No rhonchi, No wheezing Cardiac/Chest: regular rate, rhythm, edema (Trace to 1+ right lower extremity pretibial.), diastolic murmur Skin: normal color, warm/dry Neuro/Psych: alert, normal mood/affect, oriented x 3, sensory deficit (Reduced sensation soon to light palpation right lower extremity below the knee.) ICD10 Worksheet Patient Problems: Problems Problem Status Onset Acute leg pain Acute Cellulitis Acute Dehydration Acute Hypertension Acute Hypokalemia Acute Renal failure (ARF), acute on chronic Acute Anemia Chronic COPD (chronic obstructive pulmonary disease) Chronic 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
[2017-02-16] MEDS ORDERED: WARFARIN SODIUM 4 MG TAB PO SCH (16:00)
[2017-02-16] MEDS ORDERED: WARFARIN SODIUM 5 MG TAB PO ONE (16:00)
[2017-02-16] MEDS: NIACIN ER 500 MG TAB.ER PO SCH (20:50)
[2017-02-16] MEDS: ENOXAPARIN 80 MG/0.8 ML SYR SC SCH (20:52)
[2017-02-17] MEDS: FAMOTIDINE 20 MG TAB PO SCH ×2 (08:51→20:43)
[2017-02-17] MEDS: TAMSULOSIN HCL 0.4 MG CAP PO SCH (08:52)
[2017-02-17] MEDS: buPROPion SR 150 MG TAB PO SCH ×2 (08:52→20:43)
[2017-02-17] MEDS: OMEGA-3 FATTY ACIDS 1,000 MG CAP PO SCH (08:52)
[2017-02-17] MEDS: GABAPENTIN 400 MG CAP PO SCH ×3 (08:52→20:44)
[2017-02-17] MEDS: ASPIRIN 81 MG CHEWABLE TAB PO SCH (08:52)
[2017-02-17] MEDS: VENLAFAXINE XR 75 MG CAP PO SCH (08:53)
[2017-02-17] MEDS: ENOXAPARIN 80 MG/0.8 ML SYR SC SCH ×2 (08:53→20:44)
[2017-02-17] MEDS: FERROUS SULFATE 325 MG TAB PO SCH (08:53)
[2017-02-17] MEDS: traMADol 50 MG TAB PO PRN (08:58)
[2017-02-17] MEDS: HYDROCHLOROTHIAZIDE 12.5 MG CAP PO SCH (09:23)
--- NOTE | 2017-02-17 09:24 | SOAPPROG ---
SOAP Progress Note Assessment/Plan: Assessment: # Debility, status post left jubpc-orw-mboo amputation 01/30/2017. * PT and OT to optimize mobility and ADLs with a goal of discharge home at the wheelchair level. * OT PLEASE PROVIDE BEDSIDE EXERCISES TO STRENGTHEN LATS AND TRICEPS # Pzqyj-ndr-ghkw amputation. * Wound care per nursing. * Continue stump protector, and issues of followup and suture removal will be discussed with his surgeon. He is not currently in any pain. # Chronic right lower extremity ulcers. The eventual plan is a right below-the- knee amputation as well. There are wound care orders from wound nurse consultation at the hospital, and these will be continued. # COPD. He reports history of using inhalers at home, but not for many years. He will be maintained on oxygen and incentive spirometry. # Anemia, status post blood transfusion x2. * Improving on labs 02/16/17 * Iron-deficient. * RECENT H AND h 9.4/30.2 # Pulmonary embolus. * INR subtherapeutic X 2 days. Bridge with enoxaparin. * Continue management per pharmacy. # History of hypertension. He is not currently hypertensive. He had hypotension in the hospital requiring pressors. * Continue hydrochlorothiazide.. His blood pressure will be monitored, and antihypertensives will be adjusted if indicated. # Osteoporosis with vertebral compression fracture. Continue ergocalciferol on a weekly basis. Alendronate has been held as is the hospital protocol, and this should be resumed after he discharges. # Peripheral vascular disease. Continue aspirin, niacin, and fish oil. # Peripheral neuropathy RLE. # Benign prostatic hypertrophy. Continue tamsulosin. # Pain management seems to be adequate with only acetaminophen. NO C/O PHANTOM LIMB PAIN OR RESIDUAL LIMB PAIN # History of depression. Continue bupropion and venlafaxine. # Diastolic dysfunction and pulmonary hypertension were seen on echocardiogram done in the hospital. Appears compensated. Continue O2 PRN. 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 He will be monitored. He had a negative test for Clostridium difficile toxin. Plan: 02/17/17 11:36 Subjective: No c/o this am. Denies left residual limb pain or phantom pain. Objective: Vital Signs Temp Pulse Resp BP Pulse Ox 36.6 C 79 16 105/75 94 02/17/17 06:32 02/17/17 06:32 02/17/17 06:32 02/17/17 06:32 02/17/17 06:32 Laboratory Results 02/16/17 06:20 02/16/17 06:20 02/16/17 02/17/17 02/18/17 05:59 05:59 05:59 Intake Total 300 970 60 Output Total 774 950 150 Balance -474 20 -90 PT 20.1 SEC (12.0-15.0) H 02/16/17 06:20 INR 1.70 (0.83-1.16) H 02/16/17 06:20 Physical Exam - Physical Exam General Appearance: WD/WN, alert, no apparent distress Respiratory: chest non-tender, normal breath sounds Cardiac/Chest: edema, other (trace edema RLE DECREASED CAPILLARY REFILL right toes) Peripheral Pulses: 1+: dorsalis-pedis (R) (DIFFICULT TO PALPATE) Abdomen: non-tender, soft Skin: other (PALE. RIGHT TOES BLANCHED. ) Neuro/Psych: alert, normal mood/affect, oriented x 3 ICD10 Worksheet Patient Problems: Problems Problem Status Onset Acute leg pain Acute Cellulitis Acute Dehydration Acute Hypertension Acute Hypokalemia Acute Renal failure (ARF), acute on chronic Acute Anemia Chronic COPD (chronic obstructive pulmonary disease) Chronic 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
[2017-02-17 09:39] LABS: INR 1.85 (0.83-1.16); PROTIME(PATIENT) 21.4 SEC (12.0-15.0)
[2017-02-17 15:50] LABS: % IMMATURE GRANULYOCYTES 0.4 % (0.0-1.1); ABSOLUTE IMMATURE GRANULOCYTES 0.03 10^3/uL (0.00-0.10); ABSOLUTE NRBC COUNT 0.03 10^3/uL (0-0.01); ADD DIFF? NO; ADD MORPH? NO; ADD SCAN? NO; ATYPICAL LYMPHOCYTE FLAG 0 (0-99); FRAGMENT RBC FLAG 0 (0-99); HEMATOCRIT 31.1 % (40.0-51.0); HEMOGLOBIN 9.8 g/dL (13.7-17.5); LEFT SHIFT FLG 0 (0-99); LIPEMIA HEMOLYSIS FLAG 80 (0-99); MEAN CELL HEMOGLOBIN 30.6 pg (27.9-34.1); MEAN CELL HEMOGLOBIN CONCENTR. 31.5 g/dL (32.4-36.7); MEAN CELL VOLUME 97.2 fL (81.5-99.8); MEAN PLATELET VOLUME 9.9 fL (8.7-11.7); NRBC-AUTO% 0.4 % (0.0-0.2); PLATELET CLUMPS FLAG 0 (0-99); PLATELET COUNT 333 10^3/uL (150-400); RED CELL DISTRIBUTION WIDTH 16.3 % (11.5-15.2)
[2017-02-17 15:58] LABS: ANION GAP 9 mEq/L (8-16); CALCIUM 8.6 mg/dL (8.5-10.4); CARBON DIOXIDE 26 mEq/l (22-31); CHLORIDE 105 mEq/L (97-110); CREATININE 1.1 mg/dL (0.7-1.3); GLOMERULAR FILTRATION RATE > 60; GLUCOSE 98 mg/dL (70-100); POTASSIUM 3.9 mEq/L (3.5-5.2); SODIUM 140 mEq/L (134-144)
[2017-02-17] MEDS ORDERED: WARFARIN SODIUM 5 MG TAB PO ONE (16:00)
[2017-02-17] MEDS: NIACIN ER 500 MG TAB.ER PO SCH (20:44)
[2017-02-18] MEDS ORDERED: ALENDRONATE SODIUM 70 MG TAB PO SCH (07:00)
[2017-02-18] MEDS: ERGOCALCIFEROL 50,000 I.UNIT CAP PO SCH (07:36)
[2017-02-18 08:45] LABS: INR 2.08 (0.83-1.16); PROTIME(PATIENT) 23.4 SEC (12.0-15.0)
[2017-02-18] MEDS ORDERED: FERROUS SULFATE 325 MG TAB PO SCH (09:00)
[2017-02-18] MEDS: GABAPENTIN 400 MG CAP PO SCH ×3 (09:03→20:20)
[2017-02-18] MEDS: buPROPion SR 150 MG TAB PO SCH ×2 (09:03→21:30)
[2017-02-18] MEDS: FAMOTIDINE 20 MG TAB PO SCH ×2 (09:03→20:20)
[2017-02-18] MEDS: VENLAFAXINE XR 75 MG CAP PO SCH (09:03)
[2017-02-18] MEDS: FERROUS SULFATE 325 MG TAB PO SCH (09:03)
[2017-02-18] MEDS: ASPIRIN 81 MG CHEWABLE TAB PO SCH (09:04)
[2017-02-18] MEDS: ENOXAPARIN 80 MG/0.8 ML SYR SC SCH (09:04)
[2017-02-18] MEDS: OMEGA-3 FATTY ACIDS 1,000 MG CAP PO SCH (09:04)
[2017-02-18] MEDS: TAMSULOSIN HCL 0.4 MG CAP PO SCH (09:22)
[2017-02-18] MEDS: HYDROCHLOROTHIAZIDE 12.5 MG CAP PO SCH (09:23)
--- NOTE | 2017-02-18 10:19 | SOAPPROG ---
SOAP Progress Note Assessment/Plan: Assessment: #HYPOTENSION- BP THIS AM 76/51. HCTZ AND FLOMAX HELD. REVIEWED MEDS WITH RX WHO AGREES THAT THERE ARE NO OTHER MEDS LIKELY TO CAUSE HYPOTENSION. HE IS NOT TACHYCARDIC AND NO SXS SECONDARY TO HYPOTENSION. WBC IS NOT ELEVATED # Debility, status post left wfirx-szo-rsul amputation 01/30/2017. * PT and OT to optimize mobility and ADLs with a goal of discharge home at the wheelchair level. * OT PLEASE PROVIDE BEDSIDE EXERCISES TO STRENGTHEN LATS AND TRICEPS # Skwmm-lms-hggk amputation. * Wound care- WILL OBTAIN WOUND CX * Continue stump protector, and issues of followup and suture removal will be discussed with his surgeon. He is not currently in any pain. # Chronic right lower extremity ulcers. The eventual plan is a right below-the- knee amputation as well. There are wound care orders from wound nurse consultation at the hospital, and these will be continued. # COPD. He reports history of using inhalers at home, but not for many years. He will be maintained on oxygen and incentive spirometry. # Anemia, status post blood transfusion x2. * Improving on labs 02/16/17 * Iron-deficient. * H/H FROM THIS AM 9.4/30.2 # Pulmonary embolus. * INR THIS AM 2.08. PT 23.4. DISCUSSED WITH PHARMACY WHO WILL HOLD ENOXAPARIN AND CONTINUE TO DOSE COUMADIN DAILY * Continue management per pharmacy. # Osteoporosis with vertebral compression fracture. Continue ergocalciferol on a weekly basis. Alendronate has been held as is the hospital protocol, and this should be resumed after he discharges. # Peripheral vascular disease. Continue aspirin, niacin, and fish oil. # Peripheral neuropathy RLE. # Benign prostatic hypertrophy. Continue tamsulosin. # Pain management seems to be adequate with only acetaminophen. NO C/O PHANTOM LIMB PAIN OR RESIDUAL LIMB PAIN # History of depression. Continue bupropion and venlafaxine. # Diastolic dysfunction and pulmonary hypertension were seen on echocardiogram done in the hospital. Appears compensated. Continue O2 PRN. 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 He will be monitored. He had a negative test for Clostridium difficile toxin. Plan: 02/17/17 11:36 02/18/17 10:35 Subjective: He does not report feeling light headed, denies orthostatic sxs with change of position. Denies chest pain or SOB. Objective: Vital Signs Temp Pulse Resp BP Pulse Ox 37.0 C 74 16 76/51 L 92 02/18/17 06:08 02/18/17 06:08 02/18/17 06:08 02/18/17 09:23 02/18/17 06:08 Laboratory Results 02/17/17 13:30 02/17/17 13:30 02/17/17 02/18/17 02/19/17 05:59 05:59 05:59 Intake Total 196 291 0134 Output Total 950 1550 426 Balance 20 -590 1019 PT 23.4 SEC (12.0-15.0) H 02/18/17 06:00 INR 2.08 (0.83-1.16) H 02/18/17 06:00 Physical Exam - Physical Exam General Appearance: WD/WN, alert, no apparent distress Respiratory: lungs clear, normal breath sounds Cardiac/Chest: regular rate, rhythm, other (PULSE 64. Possible slight NATALY), No JVD, No tachycardia Abdomen: non-tender, soft Skin: other (LEFT BKA STUMP WITH EXUDATE MEDIALLY, DISTAL RESIDUAL LIMB WITH SLIGHT ERYTHEMA BUT RESOLVING PER NURSING) Neuro/Psych: alert, normal mood/affect, oriented x 3 ICD10 Worksheet Patient Problems: Problems Problem Status Onset Acute leg pain Acute Cellulitis Acute Dehydration Acute Hypertension Acute Hypokalemia Acute Renal failure (ARF), acute on chronic Acute Anemia Chronic COPD (chronic obstructive pulmonary disease) Chronic 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
[2017-02-18] MEDS ORDERED: WARFARIN SODIUM 5 MG TAB PO ONE (16:00)
[2017-02-18] MEDS: traMADol 50 MG TAB PO PRN (17:08)
[2017-02-18] MEDS: NIACIN ER 500 MG TAB.ER PO SCH (20:20)
[2017-02-19 08:02] LABS: INR 2.19 (0.83-1.16); PROTIME(PATIENT) 24.4 SEC (12.0-15.0)
[2017-02-19] MEDS: FAMOTIDINE 20 MG TAB PO SCH ×2 (08:39→21:16)
[2017-02-19] MEDS: buPROPion SR 150 MG TAB PO SCH ×2 (08:39→21:16)
[2017-02-19] MEDS: ASPIRIN 81 MG CHEWABLE TAB PO SCH (08:39)
[2017-02-19] MEDS: VENLAFAXINE XR 75 MG CAP PO SCH (08:40)
[2017-02-19] MEDS: OMEGA-3 FATTY ACIDS 1,000 MG CAP PO SCH (08:40)
[2017-02-19] MEDS: GABAPENTIN 400 MG CAP PO SCH ×3 (08:40→21:16)
[2017-02-19] MEDS: FERROUS SULFATE 325 MG TAB PO SCH (08:40)
[2017-02-19] MEDS: traMADol 50 MG TAB PO PRN ×3 (08:57→15:48)
--- NOTE | 2017-02-19 11:09 | SOAPPROG ---
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 * Standby assist for sliding board transfers, needing more assist for pump transfers. Needs moderate assistance for sit to stand. Rolled 75 ft in the wheelchair. Has fatigue and shortness of breath. Regarding ADLs needed setup for upper body dressing and minimal assist to standby assist for lower body dressing; total assist for shower transfer and moderate assist for toilet transfer. Set up only for bathing. Had standing tolerance of 4 min x2 with OT. * Continue PT and OT to optimize mobility and ADLs with a goal of discharge home at the wheelchair level. # Cnwhf-iww-ephc amputation. * Wound dehiscence and erythema. D/W surgeon Dr. Newsome: Patient declined follow-up visit scheduled for 02/20/2017 as he could not pay transportation. Dr. Rubin requests photo. * Started cephalexin.. Await results of wound culture. * Continue stump protector, and issues of followup and suture removal will be discussed with his surgeon. He is not currently in any pain. # Chronic right lower extremity ulcers. * The eventual plan is a right yrorj-edc-vhpn amputation as well. * Continue wound care orders from wound nurse consultation at the hospital. * Will start cephalexin. * Discussed with Infectious Disease, Dr. Long, who who may come see the patient toward the end of the day today 02/19/2017. # COPD. He reports history of using inhalers at home, but not for many years. He will be maintained on oxygen and incentive spirometry. # Anemia, status post blood transfusion x2. * Improving. * Iron-deficient, receiving supplementation.. # Pulmonary embolus. * Continue management per pharmacy. # History of hypertension. * Consistent low readings blood pressure duct on left His blood pressure will be monitored, aarm. Will rely on right arm blood pressures. * Continue hydrochlorothiazide. Continue to monitor # Osteoporosis with vertebral compression fracture. Continue ergocalciferol on a weekly basis. Alendronate has been held as is the hospital protocol, and this should be resumed after he discharges. # Peripheral vascular disease. Continue aspirin, niacin, and fish oil. # Peripheral neuropathy RLE. # Benign prostatic hypertrophy. Continue tamsulosin. # Pain management seems to be adequate with only acetaminophen. # History of depression. Continue bupropion and venlafaxine. # Diastolic dysfunction and pulmonary hypertension were seen on echocardiogram done in the hospital. Appears compensated. Continue O2 PRN. 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 He will be monitored. He had a negative test for Clostridium difficile toxin. Attended staffing, 15 min. Discussed with case management, dietitian, nursing, PT, OT. Lives a single-level mobile home with . There is a ramp to enter. Goal to discharge at wheelchair level and independent with transfers. Tentative discharge date set for 02/26/2017 Primary care provider is Dr. Viv Crowell. This patient requires a wheelchair for home use. He has a mobility limitation that significantly impairs 1 or more mobility related ADLs in the home, which cannot be resolved with a walker or cane. His home is adequate for accessing rooms maneuvering space and surfaces. The wheelchair will significantly improve the ability to participate in mobility related ADLs and the patient will use it regularly. He has not expressed and unwillingness to use the wheelchair. He has sufficient physical and mental ability to safely use a wheelchair. He needs a on anti roll back device as he self propels in needs the device because of ramps. He needs elevated leg rests because has a musculoskeletal condition and presence of a brace which prevents knee flexion to 90 degrees. He needs swing away/retractable arm rests so that he can perform a slide transfer to chair or bed. 02/20/17 11:28 Subjective: No complaints this morning, but has noticed odor from wound. Not sure if it is incision on residual limb or chronic would R foot. Sleeping well, not in pain. Objective: Vital Signs Temp Pulse Resp BP Pulse Ox 36.9 C 81 18 112/68 94 02/19/17 07:12 02/19/17 08:55 02/19/17 08:55 02/19/17 08:55 02/19/17 07:12 Microbiology 02/18/17 10:57 Gram Stain - Final Leg - Swab Laboratory Results 02/17/17 13:30 02/17/17 13:30 02/18/17 02/19/17 02/20/17 05:59 05:59 05:59 Intake Total 960 1795 270 Output Total 1550 1526 250 Balance -590 269 20 PT 24.4 SEC (12.0-15.0) H 02/19/17 06:15 INR 2.19 (0.83-1.16) H 02/19/17 06:15 - Time Spent With Patient Time Spent With Patient: Greater than 35 min floor time today, including more than 50% of time in coordination of care during staffing meeting and in conversations with Dr. Long of Infectious Disease and surgeon Dr. Newsome, and counseling patient.. Physical Exam - Physical Exam General Appearance: WD/WN, alert, no apparent distress Respiratory: normal breath sounds, No crackles, No rhonchi, No wheezing Cardiac/Chest: regular rate, rhythm, edema (trace R LE pretibial), other ( radial pulses 2" on R, diminished on L), No diastolic murmur, No systolic murmur Skin: normal color, warm/dry, other (Left residual limb incision with dehiscence and drainage medial and lateral approximately 1 cm on each side. Central incision well-approximated with eschar, sutures intact. Erythema surrounding medial incision approximately 3 cm. 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
[2017-02-19] MEDS ORDERED: CEPHALEXIN 500 MG CAP PO SCH (12:00)
[2017-02-19] MEDS: TAMSULOSIN HCL 0.4 MG CAP PO SCH (12:58)
[2017-02-19] MEDS: HYDROCHLOROTHIAZIDE 25 MG TAB PO SCH (13:02)
[2017-02-19] MEDS ORDERED: WARFARIN SODIUM 5 MG TAB PO ONE (16:00)
--- NOTE | 2017-02-19 17:39 | PCMIDPN ---
Assessment/Plan: Assessment/Plan: * Left BKA stump site erythema: Difficult to distinguish if this represents hyperemia versus early postoperative wound infection. Cultures from wound are growing MSSA and a lactose fermenting gram-negative fercho. Given difficulty with wound healing in past, will treat as if possible early postoperative wound infection with cefazolin as MSSA likely primary drivers license examiner if infection present ( has previous isolation of Klebsiella pneumoniae susceptible to cefazolin). Observe clinical response antibiotic therapy. Will review further with Dr. Newsome. * Right foot wound: Clinically without findings to suggest infection. Significant fibrinous slough and size of wound ultimately likely to necessitate right-sided BKA as well. 02/19/17 17:37 Subjective: Asked to see patient by Dr. Hoyt for erythema around left BKA stump site and nonhealing wound of right foot with concerns for possible superinfection. Patient well known to me from prior outpatient care for nonhealing wounds of both feet in the setting of peripheral vascular disease. Patient complains of increasing pain in left BKA stump medially. Foul odor noted to right foot. No fever, chills or constitutional symptoms such as malaise. Started earlier today on cephalexin based on appearance of BKA stump site. Objective: Vital Signs Temp Pulse Resp BP Pulse Ox 36.9 C 81 18 129/69 H 94 02/19/17 07:12 02/19/17 08:55 02/19/17 08:55 02/19/17 13:02 02/19/17 07:12 Microbiology 02/18/17 10:57 Gram Stain - Final Leg - Swab Laboratory Results 02/17/17 13:30 02/17/17 13:30 02/18/17 02/19/17 02/20/17 05:59 05:59 05:59 Intake Total 960 1795 510 Output Total 1550 1526 425 Balance -590 269 85 - Physical Exam General Appearance: alert, no apparent distress EENT: No scleral icterus Extremities: inflammation (Left BKA stump site with erythema around incision margin medially with warmth and tenderness; fibrinous slough approximately 6 cm in length along erythematous portion of incision; lateral margin of incision with small area of dehiscence which probes approximately 1 cm in depth; necrotic fat present, no palpable fluctuance; right foot with wound over the entirety of the dorsal aspect with extensive fibrinous slough; surrounding hyperemia present) Lymphatic: other (No lymphangitis of left lower extremity) ICD10 Worksheet Patient Problems: Problems Problem Status Onset Acute leg pain Acute Cellulitis Acute Dehydration Acute Hypertension Acute Hypokalemia Acute Renal failure (ARF), acute on chronic Acute Anemia Chronic COPD (chronic obstructive pulmonary disease) Chronic 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
[2017-02-19] MEDS: traMADol 50 MG TAB PO SCH (18:05)
[2017-02-19] MEDS: SODIUM HYPOCHLORITE (DAKINS 1/4 STR) 120 ML BTL TP PRN (18:07)
[2017-02-19] MEDS: NIACIN ER 500 MG TAB.ER PO SCH (21:16)
[2017-02-19] MEDS: ceFAZolin 2 GM/DEXTROSE 100 ML IV SCH (21:17)
[2017-02-20] MEDS: traMADol 50 MG TAB PO SCH ×5 (00:01→17:18)
[2017-02-20] MEDS: SODIUM HYPOCHLORITE (DAKINS 1/4 STR) 120 ML BTL TP PRN ×2 (02:59→08:08)
[2017-02-20] MEDS: traMADol 50 MG TAB PO PRN (03:10)
[2017-02-20] MEDS: ceFAZolin 2 GM/DEXTROSE 100 ML IV SCH ×3 (05:35→22:05)
[2017-02-20] MEDS ORDERED: traMADol 50 MG TAB PO SCH (06:00)
[2017-02-20 08:23] LABS: INR 2.36 (0.83-1.16); PROTIME(PATIENT) 25.8 SEC (12.0-15.0)
[2017-02-20] MEDS: FERROUS SULFATE 325 MG TAB PO SCH (08:47)
[2017-02-20] MEDS: buPROPion SR 150 MG TAB PO SCH ×2 (08:47→22:05)
[2017-02-20] MEDS: FAMOTIDINE 20 MG TAB PO SCH ×2 (08:47→22:05)
[2017-02-20] MEDS: ASPIRIN 81 MG CHEWABLE TAB PO SCH (08:47)
[2017-02-20] MEDS: HYDROCHLOROTHIAZIDE 25 MG TAB PO SCH (08:49)
[2017-02-20] MEDS: GABAPENTIN 400 MG CAP PO SCH ×3 (08:49→22:05)
[2017-02-20] MEDS: OMEGA-3 FATTY ACIDS 1,000 MG CAP PO SCH (08:55)
[2017-02-20] MEDS: TAMSULOSIN HCL 0.4 MG CAP PO SCH (08:55)
[2017-02-20] MEDS: VENLAFAXINE XR 75 MG CAP PO SCH (08:56)
--- NOTE | 2017-02-20 12:31 | SOAPPROG ---
SOAP Progress Note Assessment/Plan: Assessment: # Debility, status post left cvdhp-[id number]-wmvx amputation 01/30/2017. * Standby assist for sliding board transfers, needing more assist for bump transfers. Needs moderate assistance for sit to stand. Rolled 75 ft in the wheelchair. Has fatigue and shortness of breath. Regarding ADLs needed setup for upper body dressing and minimal assist to standby assist for lower body dressing; total assist for shower transfer and moderate assist for toilet transfer. Set up only for bathing. Had standing tolerance of 4 min x2 with OT. * Continue PT and OT to optimize mobility and ADLs with a goal of discharge home at the wheelchair level. # Aoiaf-nlu-mbaz amputation. * Wound dehiscence and erythema. D/W surgeon Dr. Newsome: Patient declined follow-up visit scheduled for 02/20/2017 as he could not pay transportation. Dr. Rubin requests photo; texted for close to him 02/20/2017. Await further advice. * Started cephalexin, changed to cefazolin IV per Infectious Disease solutions sales consultant. Wound culture with susceptible Staphalococcus aureus and Klebsiella pneumoniae. * Continue stump protector, and issues of followup and suture removal will be discussed with his surgeon. He is not currently in any pain. # Chronic right lower extremity ulcers. The eventual plan is a right below-the- knee amputation as well. There are wound care orders from wound nurse consultation at the hospital, and these will be continued. * Appreciate assistance of Infectious Disease Dr. Long. Continue IV cephazolin. # COPD. He reports history of using inhalers at home, but not for many years. He will be maintained on oxygen and incentive spirometry. # Anemia, status post blood transfusion x2. * Improving on labs 02/16/17 * Iron-deficient. # Pulmonary embolus. * Therapeutic on warfarin and enoxaparin was discontinued 02/18/2017. * Continue management per pharmacy. # History of hypertension. He is not currently hypertensive. He had hypotension in the hospital requiring pressors. * Continue hydrochlorothiazide. * Blood pressure checks on right arm. # Osteoporosis with vertebral compression fracture. Continue ergocalciferol on a weekly basis. Alendronate has been held as is the hospital protocol, and this should be resumed after he discharges. # Peripheral vascular disease. Continue aspirin, niacin, and fish oil. # Peripheral neuropathy RLE. # Benign prostatic hypertrophy. Continue tamsulosin. # Pain management seems to be adequate with tramadol. # History of depression. Continue bupropion and venlafaxine. # Diastolic dysfunction and pulmonary hypertension were seen on echocardiogram done in the hospital. Appears compensated. Continue O2 PRN. 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 He will be monitored. He had a negative test for Clostridium difficile toxin. Lives a single-level mobile home with . There is a ramp to enter. Goal to discharge at wheelchair level and independent with transfers. Tentative discharge date set for 02/26/2017 Primary care provider is Dr. Viv Crowell. This patient requires a wheelchair for home use. He has a mobility limitation that significantly impairs 1 or more mobility related ADLs in the home, which cannot be resolved with a walker or cane. His home is adequate for accessing rooms maneuvering space and surfaces. The wheelchair will significantly improve the ability to participate in mobility related ADLs and the patient will use it regularly. He has not expressed and unwillingness to use the wheelchair. He has sufficient physical and mental ability to safely use a wheelchair. He needs a on anti roll back device as he self propels in needs the device because of ramps. He needs elevated leg rests because has a musculoskeletal condition and presence of a brace which prevents knee flexion to 90 degrees. He needs swing away/retractable arm rests so that he can perform a slide transfer to chair or bed. This patient requires a slide board and a we wheelchair cushion also. He is non ambulatory. He has a left gfalo-lxz-cbxo amputation and will likely require a right below-knee amputation. He cannot transfer independently with a walker. She requires a slide board to be able to perform all functional transfers safely and independently. His mode of functional independence his wheelchair in which she will be sitting 8-10 hours per day. He requires a basic wheelchair cushion for appropriate positioning and pressure relief as he has peripheral vascular disease and is at risk for skin breakdown. 02/20/17 12:26 02/20/17 13:58 Subjective: Right foot pain is improved but still very tender especially on the lateral dorsal foot. Feels cold and sitting in the room by the heater but no specific fevers or chills and no sweats. Slept well. Bowels moving. Objective: Vital Signs Temp Pulse Resp BP Pulse Ox 36.8 C 77 16 115/62 91 L 02/20/17 06:00 02/20/17 06:00 02/20/17 06:00 02/20/17 08:49 02/20/17 06:00 Microbiology 02/18/17 10:57 Gram Stain - Final Leg - Swab Laboratory Results 02/17/17 13:30 02/17/17 13:30 02/19/17 02/20/17 02/21/17 05:59 05:59 05:59 Intake Total 1795 1010 458 Output Total 1526 775 Balance 269 235 458 PT 25.8 SEC (12.0-15.0) H 02/20/17 06:00 INR 2.36 (0.83-1.16) H 02/20/17 06:00 Physical Exam - Physical Exam General Appearance: WD/WN, alert, no apparent distress Respiratory: No respiratory distress, No accessory muscle use Skin: normal color, warm/dry, other (Incision on residual limb with approximately 6 cm of surrounding erythema along the incision medially and minimal erythema laterally. Serous drainage medial greater than lateral. Wound is open for the medial to 3 cm and the lateral 1 cm. Sutures are in place. 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
[2017-02-20] MEDS ORDERED: LIDOCAINE 2% JELLY 5 ML TUBE TP PRN (14:09)
[2017-02-20] MEDS ORDERED: WARFARIN SODIUM 4 MG TAB PO ONE (16:00)
[2017-02-20] MEDS: NIACIN ER 500 MG TAB.ER PO SCH (22:05)
[2017-02-21] MEDS: traMADol 50 MG TAB PO SCH ×4 (06:31→16:54)
[2017-02-21] MEDS: ceFAZolin 2 GM/DEXTROSE 100 ML IV SCH ×3 (06:31→20:34)
[2017-02-21] MEDS: FAMOTIDINE 20 MG TAB PO SCH ×2 (07:40→20:34)
[2017-02-21] MEDS: VENLAFAXINE XR 75 MG CAP PO SCH (07:40)
[2017-02-21] MEDS: GABAPENTIN 400 MG CAP PO SCH ×3 (07:40→20:34)
[2017-02-21] MEDS: ASPIRIN 81 MG CHEWABLE TAB PO SCH (07:41)
[2017-02-21] MEDS: buPROPion SR 150 MG TAB PO SCH ×2 (07:41→20:34)
[2017-02-21] MEDS: TAMSULOSIN HCL 0.4 MG CAP PO SCH (07:41)
[2017-02-21] MEDS: HYDROCHLOROTHIAZIDE 25 MG TAB PO SCH (07:41)
[2017-02-21] MEDS: FERROUS SULFATE 325 MG TAB PO SCH (07:41)
[2017-02-21] MEDS: OMEGA-3 FATTY ACIDS 1,000 MG CAP PO SCH (07:41)
[2017-02-21] MEDS: SODIUM HYPOCHLORITE (DAKINS 1/4 STR) 120 ML BTL TP PRN (08:05)
[2017-02-21] MEDS: traMADol 50 MG TAB PO PRN (08:32)
[2017-02-21 11:28] LABS: INR 2.19 (0.83-1.16); PROTIME(PATIENT) 24.4 SEC (12.0-15.0)
--- NOTE | 2017-02-21 13:59 | SOAPPROG ---
SOAP Progress Note Assessment/Plan: Assessment: # Debility, status post left ejrif-dqc-effs amputation 01/30/2017. * Standby assist for sliding board transfers, needing more assist for bump transfers. Needs moderate assistance for sit to stand. Rolled 75 ft in the wheelchair. Has fatigue and shortness of breath. Regarding ADLs needed setup for upper body dressing and minimal assist to standby assist for lower body dressing; total assist for shower transfer and moderate assist for toilet transfer. Set up only for bathing. Had standing tolerance of 4 min x2 with OT. * Continue PT and OT to optimize mobility and ADLs with a goal of discharge home at the wheelchair level. # Nqeqd-gfc-ferf amputation. * Wound dehiscence and erythema. D/W surgeon Dr. Newsome: Patient declined follow-up visit scheduled for 02/20/2017 as he could not pay transportation. Dr. Rubin requests photo; texted to him 02/20/2017. Await further advice. * Started cephalexin, changed to cefazolin IV per Infectious Disease health and wellness sales consultant. Wound culture with susceptible Staphalococcus aureus and Klebsiella pneumoniae. Discussed with Dr. Long, infectious Disease, 02/21/2017. Dr. Long will reassess tomorrow, 02/22/2017. Unclear if he has an actual wound infection versus go wound hyperemia. Dr. Long will advise further regarding duration of antibiotic therapy. * Continue stump protector, and issues of followup and suture removal will be discussed with his surgeon. He is not currently in any pain. # Chronic right lower extremity ulcers. The eventual plan is a right below-the- knee amputation as well. There are wound care orders from wound nurse consultation at the hospital, and these will be continued. * Appreciate assistance of Infectious Disease Dr. Long. Continue IV cephazolin. # COPD. He reports history of using inhalers at home, but not for many years. He will be maintained on oxygen and incentive spirometry. # Anemia, status post blood transfusion x2. * Improving on labs 02/16/17 * Iron-deficient. # Pulmonary embolus. * Therapeutic on warfarin. Enoxaparin was discontinued 02/18/2017. * Continue management per pharmacy. # Hypertension. Adequate control. He had hypotension in the hospital requiring pressors. * Continue hydrochlorothiazide. * Blood pressure checks on right arm. # Osteoporosis with vertebral compression fracture. Continue ergocalciferol on a weekly basis. Alendronate has been held as is the hospital protocol, and this should be resumed after he discharges. # Peripheral vascular disease. Continue aspirin, niacin, and fish oil. # Peripheral neuropathy RLE. # Benign prostatic hypertrophy. Continue tamsulosin. # Pain management seems to be adequate with tramadol. # History of depression. Continue bupropion and venlafaxine. # Diastolic dysfunction and pulmonary hypertension were seen on echocardiogram done in the hospital. Appears compensated. Continue O2 PRN. 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 He will be monitored. He had a negative test for Clostridium difficile toxin. Lives a single-level mobile home with . There is a ramp to enter. Goal to discharge at wheelchair level and independent with transfers. Tentative discharge date set for 02/26/2017 Primary care provider is Dr. Viv Crowell. This patient requires a wheelchair for home use. He has a mobility limitation that significantly impairs 1 or more mobility related ADLs in the home, which cannot be resolved with a walker or cane. His home is adequate for accessing rooms maneuvering space and surfaces. The wheelchair will significantly improve the ability to participate in mobility related ADLs and the patient will use it regularly. He has not expressed and unwillingness to use the wheelchair. He has sufficient physical and mental ability to safely use a wheelchair. He needs a on anti roll back device as he self propels in needs the device because of ramps. He needs elevated leg rests because has a musculoskeletal condition and presence of a brace which prevents knee flexion to 90 degrees. He needs swing away/retractable arm rests so that he can perform a slide transfer to chair or bed. This patient requires a slide board and a we wheelchair cushion also. He is non ambulatory. He has a left ynklo-pum-pdjy amputation and will likely require a right below-knee amputation. He cannot transfer independently with a walker. She requires a slide board to be able to perform all functional transfers safely and independently. His mode of functional independence his wheelchair in which she will be sitting 8-10 hours per day. He requires a basic wheelchair cushion for appropriate positioning and pressure relief as he has peripheral vascular disease and is at risk for skin breakdown. 02/21/17 13:54 02/21/17 15:38 Subjective: No complaints. Right foot pain a little bit better. No fevers, chills, cough, dyspnea. Objective: Vital Signs Temp Pulse Resp BP Pulse Ox 36.9 C 71 16 118/71 91 L 02/21/17 06:35 02/21/17 06:35 02/21/17 06:35 02/21/17 07:41 02/21/17 10:08 Microbiology 02/18/17 10:57 Gram Stain - Final Leg - Swab Wound Culture - Final Staphylococcus Aureus Klebsiella Pneumoniae Ssp Pneu Laboratory Results 02/17/17 13:30 02/17/17 13:30 02/20/17 02/21/17 02/22/17 05:59 05:59 05:59 Intake Total 1010 1194 856 Output Total 775 600 Balance 235 594 856 PT 24.4 SEC (12.0-15.0) H 02/21/17 11:17 INR 2.19 (0.83-1.16) H 02/21/17 11:17 Physical Exam - Physical Exam General Appearance: WD/WN, alert, no apparent distress Respiratory: No respiratory distress, No accessory muscle use Skin: normal color, warm/dry, other (Incision on L residual limb with unchanged erythema and partial dehiscence. 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
[2017-02-21] MEDS ORDERED: WARFARIN SODIUM 4 MG TAB PO SCH (16:00)
[2017-02-21] MEDS: NIACIN ER 500 MG TAB.ER PO SCH (20:34)
[2017-02-22] MEDS: traMADol 50 MG TAB PO SCH ×4 (01:48→18:53)
[2017-02-22] MEDS: ceFAZolin 2 GM/DEXTROSE 100 ML IV SCH ×3 (05:25→21:15)
[2017-02-22] MEDS: ERGOCALCIFEROL 50,000 I.UNIT CAP PO SCH (05:25)
[2017-02-22 07:57] LABS: INR 2.05 (0.83-1.16); PROTIME(PATIENT) 23.2 SEC (12.0-15.0)
[2017-02-22] MEDS: FERROUS SULFATE 325 MG TAB PO SCH (09:02)
[2017-02-22] MEDS: ASPIRIN 81 MG CHEWABLE TAB PO SCH (09:02)
[2017-02-22] MEDS: traMADol 50 MG TAB PO PRN (09:02)
[2017-02-22] MEDS: buPROPion SR 150 MG TAB PO SCH ×2 (09:02→21:15)
[2017-02-22] MEDS: GABAPENTIN 400 MG CAP PO SCH ×3 (09:02→21:15)
[2017-02-22] MEDS: VENLAFAXINE XR 75 MG CAP PO SCH (09:03)
[2017-02-22] MEDS: TAMSULOSIN HCL 0.4 MG CAP PO SCH (09:03)
[2017-02-22] MEDS: FAMOTIDINE 20 MG TAB PO SCH ×2 (09:03→21:15)
[2017-02-22] MEDS: OMEGA-3 FATTY ACIDS 1,000 MG CAP PO SCH (09:03)
[2017-02-22] MEDS: HYDROCHLOROTHIAZIDE 25 MG TAB PO SCH (09:13)
--- NOTE | 2017-02-22 09:32 | PCMIDPN ---
Assessment/Plan: Assessment/Plan: * Left BKA stump site erythema: Marked reduction with cefazolin therapy which is more consistent with infection than hyperemia. Plan 5 days of cefazolin which will end on Sunday. Cultures have shown growth of MSSA and Klebsiella pneumoniae which is susceptible to cefazolin; difficult to know if these represent colonization versus true starting gate driver's of infection. * Right foot wound: Clinically without findings to suggest infection. Continue local wound care but ultimately will require BKA given extent of foot wound. 02/22/17 09:28 Subjective: Patient with less left lower extremity pain. Objective: Vital Signs Temp Pulse Resp BP Pulse Ox 36.7 C 91 18 112/76 90 L 02/21/17 18:29 02/21/17 18:29 02/21/17 18:29 02/22/17 09:13 02/21/17 18:29 Laboratory Results 02/17/17 13:30 02/17/17 13:30 02/21/17 02/22/17 02/23/17 05:59 05:59 05:59 Intake Total 1194 1292 Output Total 600 400 Balance 594 892 Cefazolin # 3 Wound culture with growth of MSSA and Klebsiella pneumoniae which is cefazolin susceptible - Physical Exam General Appearance: alert, no apparent distress EENT: No scleral icterus, No thrush Extremities: other (Left BKA stump site with marked decrease in erythema; still with area of wound dehiscence laterally without active drainage; fibrinous slough and some fat necrosis present, nontender to palpation; right foot with wound which encompasses entirety of dorsal aspect; erythema at margins which is consistent with hyperemia rather than cellulitis) Abdomen: non-tender, No distended ICD10 Worksheet Patient Problems: Problems Problem Status Onset Acute leg pain Acute Cellulitis Acute Dehydration Acute Hypertension Acute Hypokalemia Acute Renal failure (ARF), acute on chronic Acute Anemia Chronic COPD (chronic obstructive pulmonary disease) Chronic 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
--- NOTE | 2017-02-22 12:02 | SOAPPROG ---
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 * Standby assist for sliding board transfers, needing more assist for bump transfers. Needs moderate assistance for sit to stand. Rolled 75 ft in the wheelchair. Has fatigue and shortness of breath. Regarding ADLs needed setup for upper body dressing and minimal assist to standby assist for lower body dressing; total assist for shower transfer and moderate assist for toilet transfer. Set up only for bathing. Had standing tolerance of 4 min x2 with OT. * Continue PT and OT to optimize mobility and ADLs with a goal of discharge home at the wheelchair level. # Apvxy-ywq-oteu amputation. * Wound dehiscence and erythema. D/W surgeon Dr. Newsome: Patient declined follow-up visit scheduled for 02/20/2017 as he could not pay transportation. Dr. Rubin requests photo; texted to him 02/20/2017. Follow up with Dr. Sophia lockwood when he is able to make a car transfer; tentative plan for Sunday02/26/2017. * Cefazolin IV per Infectious Disease clinical consultant. Wound culture with susceptible Staphalococcus aureus and Klebsiella pneumoniae. Continue cephazolin through 02/24/17 for 5 days total. * Continue stump protector, and issues of followup and suture removal will be discussed with his surgeon. He is not currently in any pain. # Chronic right lower extremity ulcers. The eventual plan is a right below-the- knee amputation as well. There are wound care orders from wound nurse consultation at the hospital, and these will be continued. * Appreciate assistance of Infectious Disease Dr. Long. Continue IV cephazolin. * Lidocaine solution for dressing changes. # COPD. He reports history of using inhalers at home, but not for many years. He will be maintained on oxygen and incentive spirometry. # Anemia, status post blood transfusion x2. * Improving on labs 02/16/17 * Iron-deficient. # Pulmonary embolus. * Therapeutic on warfarin. Enoxaparin was discontinued 02/18/2017. * Continue management per pharmacy. # Hypertension. Adequate control. He had hypotension in the hospital requiring pressors. * Continue hydrochlorothiazide. * Blood pressure checks on right arm. # Osteoporosis with vertebral compression fracture. Continue ergocalciferol on a weekly basis. Alendronate has been held as is the hospital protocol, and this should be resumed after he discharges. # Peripheral vascular disease. Continue aspirin, niacin, and fish oil. # Peripheral neuropathy RLE. # Benign prostatic hypertrophy. Continue tamsulosin. # Pain management seems to be adequate with tramadol. * Trial of topical lidocaine for right lower extremity dressing changes. # History of depression. Continue bupropion and venlafaxine. # Diastolic dysfunction and pulmonary hypertension were seen on echocardiogram done in the hospital. Appears compensated. Continue O2 PRN. 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 He will be monitored. He had a negative test for Clostridium difficile toxin. Lives a single-level mobile home with . There is a ramp to enter. Goal to discharge at wheelchair level and independent with transfers. Tentative discharge date set for 02/26/2017 Primary care provider is Dr. Viv Crowell. This patient requires a wheelchair for home use. He has a mobility limitation that significantly impairs 1 or more mobility related ADLs in the home, which cannot be resolved with a walker or cane. His home is adequate for accessing rooms maneuvering space and surfaces. The wheelchair will significantly improve the ability to participate in mobility related ADLs and the patient will use it regularly. He has not expressed and unwillingness to use the wheelchair. He has sufficient physical and mental ability to safely use a wheelchair. He needs a on anti roll back device as he self propels in needs the device because of ramps. He needs elevated leg rests because has a musculoskeletal condition and presence of a brace which prevents knee flexion to 90 degrees. He needs swing away/retractable arm rests so that he can perform a slide transfer to chair or bed. This patient requires a slide board and a we wheelchair cushion also. He is non ambulatory. He has a left ombxg-tca-twfo amputation and will likely require a right below-knee amputation. He cannot transfer independently with a walker. She requires a slide board to be able to perform all functional transfers safely and independently. His mode of functional independence his wheelchair in which she will be sitting 8-10 hours per day. He requires a basic wheelchair cushion for appropriate positioning and pressure relief as he has peripheral vascular disease and is at risk for skin breakdown. 02/22/17 12:21 Subjective: Had interrupted sleep overnight and felt tired this morning. Initially refused therapies but is feeling better now. Had left flank pain but improved after pain medication. No cough or dyspnea, no fevers or chills. Objective: Vital Signs Temp Pulse Resp BP Pulse Ox 36.7 C 91 18 112/76 90 L 02/21/17 18:29 02/21/17 18:29 02/21/17 18:29 02/22/17 09:13 02/21/17 18:29 Laboratory Results 02/17/17 13:30 02/17/17 13:30 02/21/17 02/22/17 02/23/17 05:59 05:59 05:59 Intake Total 1194 1292 120 Output Total 600 400 Balance 594 892 120 PT 23.2 SEC (12.0-15.0) H 02/22/17 06:00 INR 2.05 (0.83-1.16) H 02/22/17 06:00 Physical Exam - Physical Exam General Appearance: WD/WN, alert, no apparent distress, moderate distress ( Considerable pain with dressing removal on right foot.) Respiratory: normal breath sounds, No crackles, No rhonchi, No wheezing Cardiac/Chest: regular rate, rhythm, No diastolic murmur, No systolic murmur Skin: normal color, warm/dry, other (Left residual limb incision with dehiscence medially and thick whitish and serous drainage and surrounding erythema for approximately the medial 6 cm. Chronic wound covering most of dorsum of right foot covered with work with white slough with multiple 1-2 mm spots of erythema which might be granulation tissue.) Neuro/Psych: no motor/sensory deficits, alert, normal mood/affect, oriented x 3 , other (Able to transfer with sliding board from wheelchair to bed independently after setup.) ICD10 Worksheet Patient Problems: Problems Problem Status Onset Acute leg pain Acute Cellulitis Acute Dehydration Acute Hypertension Acute Hypokalemia Acute Renal failure (ARF), acute on chronic Acute Anemia Chronic COPD (chronic obstructive pulmonary disease) Chronic 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
[2017-02-22] MEDS: SODIUM HYPOCHLORITE (DAKINS 1/4 STR) 120 ML BTL TP PRN ×2 (12:20→21:17)
[2017-02-22] MEDS: WARFARIN SODIUM 5 MG TAB PO SCH (16:33)
[2017-02-22] MEDS: NIACIN ER 500 MG TAB.ER PO SCH (21:15)
[2017-02-22] MEDS: LIDOCAINE HCL 4% TOPICAL SOLN 50ML TP SCH (21:16)
[2017-02-23] MEDS: traMADol 50 MG TAB PO SCH ×4 (02:45→18:24)
[2017-02-23] MEDS: ceFAZolin 2 GM/DEXTROSE 100 ML IV SCH ×3 (05:34→21:33)
[2017-02-23] MEDS: ERGOCALCIFEROL 50,000 I.UNIT CAP PO SCH (05:34)
[2017-02-23 08:00] LABS: INR 2.04 (0.83-1.16); PROTIME(PATIENT) 23.1 SEC (12.0-15.0)
[2017-02-23] MEDS: VENLAFAXINE XR 75 MG CAP PO SCH (09:00)
[2017-02-23] MEDS: GABAPENTIN 400 MG CAP PO SCH ×3 (09:00→21:34)
[2017-02-23] MEDS: FERROUS SULFATE 325 MG TAB PO SCH (09:01)
[2017-02-23] MEDS: ASPIRIN 81 MG CHEWABLE TAB PO SCH (09:01)
[2017-02-23] MEDS: HYDROCHLOROTHIAZIDE 25 MG TAB PO SCH (09:01)
[2017-02-23] MEDS: TAMSULOSIN HCL 0.4 MG CAP PO SCH (09:03)
[2017-02-23] MEDS: FAMOTIDINE 20 MG TAB PO SCH ×2 (09:03→21:34)
[2017-02-23] MEDS: buPROPion SR 150 MG TAB PO SCH ×2 (09:03→21:33)
[2017-02-23] MEDS: OMEGA-3 FATTY ACIDS 1,000 MG CAP PO SCH (09:03)
[2017-02-23] MEDS: traMADol 50 MG TAB PO PRN ×2 (09:04→21:34)
--- NOTE | 2017-02-23 09:56 | SOAPPROG ---
SOAP Progress Note Assessment/Plan: Assessment: # Debility, status post left twklz-ldh-ggss amputation 01/30/2017. * Standby assist for sliding board transfers, needing more assist for bump transfers. Needs moderate assistance for sit to stand. Rolled 75 ft in the wheelchair. Has fatigue and shortness of breath. Regarding ADLs needed setup for upper body dressing and minimal assist to standby assist for lower body dressing; total assist for shower transfer and moderate assist for toilet transfer. Set up only for bathing. Had standing tolerance of 4 min x2 with OT. * Continue PT and OT to optimize mobility and ADLs with a goal of discharge home at the wheelchair level. # Zyciv-icy-fpob amputation. * Wound dehiscence and erythema. D/W surgeon Dr. Newsome: Patient declined follow-up visit scheduled for 02/20/2017 as he could not pay transportation. Dr. Rubin requests photo; texted to him 02/20/2017. Follow up with Dr. Newsome when he is able to make a car transfer; tentative plan for 01/2017. * Cefazolin IV per Infectious Disease contact center consultant. Wound culture with susceptible Staphylococcus aureus and Klebsiella pneumoniae. Continue cephazolin through 02/24/17 for 5 days total. * Continue stump protector, and issues of followup and suture removal will be discussed with his surgeon. He is not currently in any pain. # Chronic right lower extremity ulcers. The eventual plan is a right below-the- knee amputation as well. There are wound care orders from wound nurse consultation at the hospital, and these will be continued. * Appreciate assistance of Infectious Disease Dr. Long. Continue IV cephazolin. * Lidocaine solution for dressing changes caused burning; will discontinue. # Flank pain, unclear etiology * UA wnl. Pain has resolved. Consider imaging if it recurs. # COPD. He reports history of using inhalers at home, but not for many years. He will be maintained on oxygen and incentive spirometry. # Anemia, status post blood transfusion x2. * Improving on labs 02/16/17 * Iron-deficient. # Pulmonary embolus. * Therapeutic on warfarin. Enoxaparin was discontinued 02/18/2017. * Continue management per pharmacy. # Hypertension. Adequate control. He had hypotension in the hospital requiring pressors. * Continue hydrochlorothiazide. * Blood pressure checks on right arm. # Osteoporosis with vertebral compression fracture. Continue ergocalciferol on a weekly basis. Alendronate has been held as is the hospital protocol, and this should be resumed after he discharges. # Peripheral vascular disease. Continue aspirin, niacin, and fish oil. # Peripheral neuropathy RLE. # Benign prostatic hypertrophy. Continue tamsulosin. # Pain management seems to be adequate with tramadol. * Trial of topical lidocaine for right lower extremity dressing changes. # History of depression. Continue bupropion and venlafaxine. # Diastolic dysfunction and pulmonary hypertension were seen on echocardiogram done in the hospital. Appears compensated. Continue O2 PRN. 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 He will be monitored. He had a negative test for Clostridium difficile toxin. Lives a single-level mobile home with . There is a ramp to enter. Goal to discharge at wheelchair level and independent with transfers. Tentative discharge date set for 02/26/2017 Primary care provider is Dr. Viv Crowell. This patient requires a wheelchair for home use. He has a mobility limitation that significantly impairs 1 or more mobility related ADLs in the home, which cannot be resolved with a walker or cane. His home is adequate for accessing rooms maneuvering space and surfaces. The wheelchair will significantly improve the ability to participate in mobility related ADLs and the patient will use it regularly. He has not expressed and unwillingness to use the wheelchair. He has sufficient physical and mental ability to safely use a wheelchair. He needs a on anti roll back device as he self propels in needs the device because of ramps. He needs elevated leg rests because has a musculoskeletal condition and presence of a brace which prevents knee flexion to 90 degrees. He needs swing away/retractable arm rests so that he can perform a slide transfer to chair or bed. This patient requires a slide board and a we wheelchair cushion also. He is non ambulatory. He has a left zembv-ofz-ujao amputation and will likely require a right below-knee amputation. He cannot transfer independently with a walker. She requires a slide board to be able to perform all functional transfers safely and independently. His mode of functional independence his wheelchair in which she will be sitting 8-10 hours per day. He requires a basic wheelchair cushion for appropriate positioning and pressure relief as he has peripheral vascular disease and is at risk for skin breakdown. 02/23/17 17:36 Subjective: C/O 10/10 L flank pain while sitting up in wheelchair. Resolved currently while lying in bed. Pain was steady, not cramping. Pain did not awaken from sleep. Denies fevers, chills, dysuria. No constipation or diarrhea. Objective: Vital Signs Temp Pulse Resp BP Pulse Ox 36.6 C 80 18 107/78 92 02/23/17 08:00 02/23/17 08:00 02/23/17 08:00 02/23/17 09:01 02/23/17 08:00 Laboratory Results 02/17/17 13:30 02/17/17 13:30 02/22/17 02/23/17 02/24/17 05:59 05:59 05:59 Intake Total 1292 770 Output Total 400 1025 Balance 892 -255 PT 23.1 SEC (12.0-15.0) H 02/23/17 06:00 INR 2.04 (0.83-1.16) H 02/23/17 06:00 Physical Exam - Physical Exam General Appearance: WD/WN, alert, no apparent distress Respiratory: No respiratory distress, No accessory muscle use Back: No CVA tenderness Skin: normal color, warm/dry, other (No ecchymosis left flank) Neuro/Psych: no motor/sensory deficits, alert, normal mood/affect, oriented x 3 ICD10 Worksheet Patient Problems: Problems Problem Status Onset Acute leg pain Acute Cellulitis Acute Dehydration Acute Hypertension Acute Hypokalemia Acute Renal failure (ARF), acute on chronic Acute Anemia Chronic COPD (chronic obstructive pulmonary disease) Chronic 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
[2017-02-23] MEDS: LIDOCAINE HCL 4% TOPICAL SOLN 50ML TP SCH (11:12)
[2017-02-23] MEDS: SODIUM HYPOCHLORITE (DAKINS 1/4 STR) 120 ML BTL TP PRN (12:12)
[2017-02-23 13:44] LABS: COLOR YELLOW; LEUKOCYTE ESTERASE,URINE NEGATIVE (NEGATIVE); NITRITE,URINE NEGATIVE (NEGATIVE)
[2017-02-23] MEDS: WARFARIN SODIUM 5 MG TAB PO SCH (16:51)
[2017-02-23] MEDS: NIACIN ER 500 MG TAB.ER PO SCH (21:34)
[2017-02-24] MEDS: traMADol 50 MG TAB PO SCH ×5 (01:00→17:19)
[2017-02-24] MEDS: ceFAZolin 2 GM/DEXTROSE 100 ML IV SCH ×3 (06:25→21:05)
[2017-02-24] MEDS: ASPIRIN 81 MG CHEWABLE TAB PO SCH (08:50)
[2017-02-24] MEDS: FERROUS SULFATE 325 MG TAB PO SCH (08:50)
[2017-02-24] MEDS: FAMOTIDINE 20 MG TAB PO SCH ×2 (08:50→20:07)
[2017-02-24] MEDS: buPROPion SR 150 MG TAB PO SCH ×2 (08:50→20:07)
[2017-02-24] MEDS: GABAPENTIN 400 MG CAP PO SCH ×3 (08:51→20:07)
[2017-02-24] MEDS: OMEGA-3 FATTY ACIDS 1,000 MG CAP PO SCH (08:51)
[2017-02-24] MEDS: VENLAFAXINE XR 75 MG CAP PO SCH (08:52)
[2017-02-24] MEDS: TAMSULOSIN HCL 0.4 MG CAP PO SCH (09:00)
[2017-02-24 09:07] LABS: INR 2.04 (0.83-1.16); PROTIME(PATIENT) 23.1 SEC (12.0-15.0)
[2017-02-24] MEDS: HYDROCHLOROTHIAZIDE 25 MG TAB PO SCH (12:04)
--- NOTE | 2017-02-24 12:35 | SOAPPROG ---
SOAP Progress Note Assessment/Plan: Assessment: # Debility, status post left pyxbm-nej-mflo amputation 01/30/2017. * Standby assist for sliding board transfers, needing more assist for bump transfers. Needs moderate assistance for sit to stand. Rolled 75 ft in the wheelchair. Has fatigue and shortness of breath. Regarding ADLs needed setup for upper body dressing and minimal assist to standby assist for lower body dressing; total assist for shower transfer and moderate assist for toilet transfer. Set up only for bathing. Had standing tolerance of 4 min x2 with OT. * Continue PT and OT to optimize mobility and ADLs with a goal of discharge home at the wheelchair level. # Bkzxh-smq-zhtg amputation. * Wound dehiscence and erythema. D/W surgeon Dr. Newsome: Patient declined follow-up visit scheduled for 02/20/2017 as he could not pay transportation. Dr. Rubin requests photo; texted to him 02/20/2017. Follow up with Dr. Newsome when he is able to make a car transfer; tentative plan for 01/2017. * Cefazolin IV per Infectious Disease fitness sales consultant. Wound culture with susceptible Staphylococcus aureus and Klebsiella pneumoniae. * Finish 5 day course of cefazolin tonight - no evidence of active infection * Continue stump protector, and issues of followup and suture removal will be discussed with his surgeon. He is not currently in any pain. # Chronic right lower extremity ulcers. The eventual plan is a right below-the- knee amputation as well. There are wound care orders from wound nurse consultation at the hospital, and these will be continued. * Appreciate assistance of Infectious Disease Dr. Long. Continue IV cephazolin. * Lidocaine solution for dressing changes caused burning; will discontinue. # Flank pain, unclear etiology * UA wnl. Pain has resolved. Consider imaging if it recurs. # COPD. He reports history of using inhalers at home, but not for many years. He will be maintained on oxygen and incentive spirometry. # Anemia, status post blood transfusion x2. * Improving on labs 02/16/17 * Iron-deficient. # Pulmonary embolus. * Therapeutic on warfarin. Enoxaparin was discontinued 02/18/2017. * Continue management per pharmacy. # Hypertension. Adequate control. He had hypotension in the hospital requiring pressors. * Continue hydrochlorothiazide. * Blood pressure checks on right arm. # Osteoporosis with vertebral compression fracture. Continue ergocalciferol on a weekly basis. Alendronate has been held as is the hospital protocol, and this should be resumed after he discharges. # Peripheral vascular disease. Continue aspirin, niacin, and fish oil. # Peripheral neuropathy RLE. # Benign prostatic hypertrophy. Continue tamsulosin. # Pain management seems to be adequate with tramadol. * Trial of topical lidocaine for right lower extremity dressing changes. # History of depression. Continue bupropion and venlafaxine. # Diastolic dysfunction and pulmonary hypertension were seen on echocardiogram done in the hospital. Appears compensated. Continue O2 PRN. 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 He will be monitored. He had a negative test for Clostridium difficile toxin. Lives a single-level mobile home with . There is a ramp to enter. Goal to discharge at wheelchair level and independent with transfers. Tentative discharge date set for 02/26/2017 Primary care provider is Dr. Viv Crowell. This patient requires a wheelchair for home use. He has a mobility limitation that significantly impairs 1 or more mobility related ADLs in the home, which cannot be resolved with a walker or cane. His home is adequate for accessing rooms maneuvering space and surfaces. The wheelchair will significantly improve the ability to participate in mobility related ADLs and the patient will use it regularly. He has not expressed and unwillingness to use the wheelchair. He has sufficient physical and mental ability to safely use a wheelchair. He needs a on anti roll back device as he self propels in needs the device because of ramps. He needs elevated leg rests because has a musculoskeletal condition and presence of a brace which prevents knee flexion to 90 degrees. He needs swing away/retractable arm rests so that he can perform a slide transfer to chair or bed. This patient requires a slide board and a we wheelchair cushion also. He is non ambulatory. He has a left fgpuq-mug-zwqo amputation and will likely require a right below-knee amputation. He cannot transfer independently with a walker. She requires a slide board to be able to perform all functional transfers safely and independently. His mode of functional independence his wheelchair in which she will be sitting 8-10 hours per day. He requires a basic wheelchair cushion for appropriate positioning and pressure relief as he has peripheral vascular disease and is at risk for skin breakdown. Plan: 02/24/17 12:34 Subjective: No new complaints. Seems to be tolerating therapy well. Pain with dressing changes Objective: Vital Signs Temp Pulse Resp BP Pulse Ox 37.0 C 80 18 116/74 92 02/24/17 08:00 02/24/17 10:41 02/24/17 08:00 02/24/17 12:04 02/24/17 12:00 Laboratory Results 02/17/17 13:30 02/17/17 13:30 02/23/17 02/24/17 02/25/17 05:59 05:59 05:59 Intake Total 770 480 240 Output Total 1025 300 350 Balance -255 180 -110 PT 23.1 SEC (12.0-15.0) H 02/24/17 07:00 INR 2.04 (0.83-1.16) H 02/24/17 07:00 Physical Exam - Physical Exam General Appearance: WD/WN, alert, no apparent distress EENT: No scleral icterus (R), No scleral icterus (L) Respiratory: chest non-tender, lungs clear, normal breath sounds Cardiac/Chest: regular rate, rhythm, No edema Abdomen: normal bowel sounds, non-tender, soft Extremities: other (Right foot wound observed with dressing change. Large ulceration with muscle and small area of bone visible. Not a lot of granulation tissue. Mild surrounding erythema but no evidence of infection. 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
[2017-02-24] MEDS: WARFARIN SODIUM 5 MG TAB PO SCH (17:19)
[2017-02-24] MEDS: NIACIN ER 500 MG TAB.ER PO SCH (20:06)
[2017-02-24] MEDS: traMADol 50 MG TAB PO PRN (20:06)
[2017-02-25] MEDS: traMADol 50 MG TAB PO SCH ×4 (02:58→17:35)
[2017-02-25] MEDS: ASPIRIN 81 MG CHEWABLE TAB PO SCH (09:09)
[2017-02-25] MEDS: buPROPion SR 150 MG TAB PO SCH ×2 (09:09→19:37)
[2017-02-25] MEDS: HYDROCHLOROTHIAZIDE 25 MG TAB PO SCH (09:12)
[2017-02-25] MEDS: FERROUS SULFATE 325 MG TAB PO SCH (09:12)
[2017-02-25] MEDS: GABAPENTIN 400 MG CAP PO SCH ×3 (09:12→19:37)
[2017-02-25] MEDS: FAMOTIDINE 20 MG TAB PO SCH ×2 (09:12→19:37)
[2017-02-25 09:15] LABS: INR 2.22 (0.83-1.16); PROTIME(PATIENT) 24.6 SEC (12.0-15.0)
[2017-02-25] MEDS: TAMSULOSIN HCL 0.4 MG CAP PO SCH (09:16)
[2017-02-25] MEDS: OMEGA-3 FATTY ACIDS 1,000 MG CAP PO SCH (09:16)
[2017-02-25] MEDS: traMADol 50 MG TAB PO PRN ×2 (09:17→19:37)
[2017-02-25] MEDS: VENLAFAXINE XR 75 MG CAP PO SCH (09:17)
[2017-02-25] MEDS: ERGOCALCIFEROL 50,000 I.UNIT CAP PO SCH (09:18)
[2017-02-25] MEDS: WARFARIN SODIUM 5 MG TAB PO SCH (16:22)
[2017-02-25] MEDS: NIACIN ER 500 MG TAB.ER PO SCH (19:37)
--- NOTE | 2017-02-25 21:39 | SOAPPROG ---
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 * Standby assist for sliding board transfers, needing more assist for bump transfers. Needs moderate assistance for sit to stand. Rolled 75 ft in the wheelchair. Has fatigue and shortness of breath. Regarding ADLs needed setup for upper body dressing and minimal assist to standby assist for lower body dressing; total assist for shower transfer and moderate assist for toilet transfer. Set up only for bathing. Had standing tolerance of 4 min x2 with OT. * Continue PT and OT to optimize mobility and ADLs with a goal of discharge home at the wheelchair level. # Lyfhz-bis-quag amputation. * Wound dehiscence and erythema. D/W surgeon Dr. Newsome: Patient declined follow-up visit scheduled for 02/20/2017 as he could not pay transportation. Dr. Rubin requests photo; texted to him 02/20/2017. Follow up with Dr. Newsome when he is able to make a car transfer; tentative plan for 01/2017. * Cefazolin IV per Infectious Disease lean consultant. Wound culture with susceptible Staphylococcus aureus and Klebsiella pneumoniae. * Finish 5 day course of cefazolin tonight - no evidence of active infection - wound examined 02/24 * Continue stump protector, and issues of followup and suture removal will be discussed with his surgeon. He is not currently in any pain. # Chronic right lower extremity ulcers. The eventual plan is a right below-the- knee amputation as well. There are wound care orders from wound nurse consultation at the hospital, and these will be continued. * Appreciate assistance of Infectious Disease Dr. Long. Continue IV cephazolin. * Lidocaine solution for dressing changes caused burning; will discontinue. # Flank pain, unclear etiology * UA wnl. Pain has resolved. Consider imaging if it recurs. # COPD. He reports history of using inhalers at home, but not for many years. He will be maintained on oxygen and incentive spirometry. # Anemia, status post blood transfusion x2. * Improving on labs 02/16/17 * Iron-deficient. # Pulmonary embolus. * Therapeutic on warfarin. Enoxaparin was discontinued 02/18/2017. * Continue management per pharmacy. # Hypertension. Adequate control. He had hypotension in the hospital requiring pressors. * Continue hydrochlorothiazide. * Blood pressure checks on right arm. # Osteoporosis with vertebral compression fracture. Continue ergocalciferol on a weekly basis. Alendronate has been held as is the hospital protocol, and this should be resumed after he discharges. # Peripheral vascular disease. Continue aspirin, niacin, and fish oil. # Peripheral neuropathy RLE. # Benign prostatic hypertrophy. Continue tamsulosin. # Pain management seems to be adequate with tramadol. * Trial of topical lidocaine for right lower extremity dressing changes. # History of depression. Continue bupropion and venlafaxine. # Diastolic dysfunction and pulmonary hypertension were seen on echocardiogram done in the hospital. Appears compensated. Continue O2 PRN. 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 He will be monitored. He had a negative test for Clostridium difficile toxin. Lives a single-level mobile home with . There is a ramp to enter. Goal to discharge at wheelchair level and independent with transfers. Tentative discharge date set for 02/26/2017 Primary care provider is Dr. Viv Crowell. This patient requires a wheelchair for home use. He has a mobility limitation that significantly impairs 1 or more mobility related ADLs in the home, which cannot be resolved with a walker or cane. His home is adequate for accessing rooms maneuvering space and surfaces. The wheelchair will significantly improve the ability to participate in mobility related ADLs and the patient will use it regularly. He has not expressed and unwillingness to use the wheelchair. He has sufficient physical and mental ability to safely use a wheelchair. He needs a on anti roll back device as he self propels in needs the device because of ramps. He needs elevated leg rests because has a musculoskeletal condition and presence of a brace which prevents knee flexion to 90 degrees. He needs swing away/retractable arm rests so that he can perform a slide transfer to chair or bed. This patient requires a slide board and a we wheelchair cushion also. He is non ambulatory. He has a left moetb-vzf-hpro amputation and will likely require a right below-knee amputation. He cannot transfer independently with a walker. She requires a slide board to be able to perform all functional transfers safely and independently. His mode of functional independence his wheelchair in which she will be sitting 8-10 hours per day. He requires a basic wheelchair cushion for appropriate positioning and pressure relief as he has peripheral vascular disease and is at risk for skin breakdown. Plan: 02/24/17 12:34 02/25/17 21:38 Subjective: no new complaints. some pain with dressing changes Objective: Vital Signs Temp Pulse Resp BP Pulse Ox 36.8 C 82 16 108/73 93 02/25/17 17:40 02/24/17 19:03 02/25/17 17:40 02/25/17 17:40 02/25/17 17:40 Laboratory Results 02/17/17 13:30 02/17/17 13:30 02/24/17 02/25/17 02/26/17 05:59 05:59 05:59 Intake Total 480 1140 1200 Output Total 300 1000 375 Balance 180 140 825 PT 24.6 SEC (12.0-15.0) H 02/25/17 06:55 INR 2.22 (0.83-1.16) H 02/25/17 06:55 Physical Exam - Physical Exam General Appearance: WD/WN, alert, no apparent distress Respiratory: lungs clear Cardiac/Chest: regular rate, rhythm Extremities: other (dressed, no surrounded erythema right foot) Neuro/Psych: alert, normal mood/affect, oriented x 3 ICD10 Worksheet Patient Problems: Problems Problem Status Onset Acute leg pain Acute Cellulitis Acute Dehydration Acute Hypertension Acute Hypokalemia Acute Renal failure (ARF), acute on chronic Acute Anemia Chronic COPD (chronic obstructive pulmonary disease) Chronic 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
[2017-02-26] MEDS: traMADol 50 MG TAB PO SCH ×4 (01:30→17:43)
[2017-02-26] MEDS: VENLAFAXINE XR 75 MG CAP PO SCH (08:54)
[2017-02-26] MEDS: ASPIRIN 81 MG CHEWABLE TAB PO SCH (08:54)
[2017-02-26] MEDS: TAMSULOSIN HCL 0.4 MG CAP PO SCH (08:55)
[2017-02-26] MEDS: HYDROCHLOROTHIAZIDE 25 MG TAB PO SCH (08:56)
[2017-02-26] MEDS: buPROPion SR 150 MG TAB PO SCH ×2 (08:56→19:54)
[2017-02-26] MEDS: GABAPENTIN 400 MG CAP PO SCH ×3 (08:56→19:49)
[2017-02-26] MEDS: OMEGA-3 FATTY ACIDS 1,000 MG CAP PO SCH (08:56)
[2017-02-26] MEDS: FERROUS SULFATE 325 MG TAB PO SCH (08:56)
[2017-02-26] MEDS: FAMOTIDINE 20 MG TAB PO SCH ×2 (08:56→19:54)
[2017-02-26] MEDS: traMADol 50 MG TAB PO PRN (09:01)
[2017-02-26 09:17] LABS: INR 2.11 (0.83-1.16); PROTIME(PATIENT) 23.7 SEC (12.0-15.0)
[2017-02-26] MEDS ORDERED: oxyCODONE IR 5 MG TAB PO PRN (14:32)
--- NOTE | 2017-02-26 14:32 | SOAPPROG ---
SOAP Progress Note Assessment/Plan: Assessment: # Debility, status post left kxfjg-lty-hcel amputation 01/30/2017. * Functional independence measure improved from 79-85 as of 02/26/2015. Standby assist for slide board transfers. Needs assistance to propel wheelchair on ramp. Has propelled wheelchair 120 ft. Unable to do car transfer into his van. Setup for dressing and grooming, minimal assist to standby assist for toilet transfer. * Plan for transfer to SNF soon as he will not be ready to go home with his . * Continue PT and OT to optimize mobility and ADLs. # Zmzxh-jez-mvef amputation. * Wound dehiscence and erythema. D/W surgeon Dr. Newsome: Patient declined follow-up visit scheduled for 02/20/2017 as he could not pay transportation. Dr. Rubin requests photo; texted to him 02/20/2017. Follow up with Dr. Newsome from SNF as they will be able to do the transportation. * Cefazolin IV per Infectious Disease home service consultant completed 02/24/17 for 5 days total. * Continue stump protector, and issues of followup and suture removal will be discussed with his surgeon. He is not currently in any pain. # Chronic right lower extremity ulcers. The eventual plan is a right below-the- knee amputation as well. There are wound care orders from wound nurse consultation at the hospital, and these will be continued. * Appreciate assistance of Infectious Disease Dr. oLng. Continue IV cephazolin. * Lidocaine solution for dressing changes caused burning; will discontinue. * Discussed with wound care nurse regarding plan for less frequent dressing changes and how to make them less painful. Will premedicate for next dressing change with oxycodone. Discontinue Dakin's solution and twice daily dressing change. Initiate SilvaSorb to wound and cover with Alevyn. Dressing change once a day; patient request that it be done in the evening. # Flank pain, unclear etiology * UA wnl. Pain has resolved. Consider imaging if it recurs. # COPD. He reports history of using inhalers at home, but not for many years. He will be maintained on oxygen and incentive spirometry. # Anemia, status post blood transfusion x2. * Improving on labs 02/16/17 * Iron-deficient. # Pulmonary embolus. * Therapeutic on warfarin. Enoxaparin was discontinued 02/18/2017. * Continue management per pharmacy. # Hypertension. Adequate control. He had hypotension in the hospital requiring pressors. * Continue hydrochlorothiazide. * Blood pressure checks on right arm. # Osteoporosis with vertebral compression fracture. Continue ergocalciferol on a weekly basis. Alendronate has been held as is the hospital protocol, and this should be resumed after he discharges. # Peripheral vascular disease. Continue aspirin, niacin, and fish oil. # Peripheral neuropathy RLE. # Benign prostatic hypertrophy. Continue tamsulosin. # History of depression. Continue bupropion and venlafaxine. # Diastolic dysfunction and pulmonary hypertension were seen on echocardiogram done in the hospital. Appears compensated. Continue O2 PRN. 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 He will be monitored. He had a negative test for Clostridium difficile toxin. Attended staffing, 15 min. Discussed with nursing, dietitian, PT, OT, machine adjuster leader case trim. Has not progressed sufficiently for discharge home; to high burden of care for to take care of him and unable to accomplish car transfer. Plan for transfer to [facility] SNF. Primary care provider is Dr. Viv Crowell. This patient requires a wheelchair for home use. He has a mobility limitation that significantly impairs 1 or more mobility related ADLs in the home, which cannot be resolved with a walker or cane. His home is adequate for accessing rooms maneuvering space and surfaces. The wheelchair will significantly improve the ability to participate in mobility related ADLs and the patient will use it regularly. He has not expressed and unwillingness to use the wheelchair. He has sufficient physical and mental ability to safely use a wheelchair. He needs a on anti roll back device as he self propels in needs the device because of ramps. He needs elevated leg rests because has a musculoskeletal condition and presence of a brace which prevents knee flexion to 90 degrees. He needs swing away/retractable arm rests so that he can perform a slide transfer to chair or bed. This patient requires a slide board and a we wheelchair cushion also. He is non ambulatory. He has a left eobsg-qip-vhbp amputation and will likely require a right below-knee amputation. He cannot transfer independently with a walker. She requires a slide board to be able to perform all functional transfers safely and independently. His mode of functional independence his wheelchair in which she will be sitting 8-10 hours per day. He requires a basic wheelchair cushion for appropriate positioning and pressure relief as he has peripheral vascular disease and is at risk for skin breakdown. 02/26/17 14:57 Subjective: No complaints a. Acknowledges falling yesterday while trying to self transfer to commode. Not in pain though dressing changes to right foot are very painful. No cough or dyspnea, no fevers or chills. Objective: Vital Signs Temp Pulse Resp BP Pulse Ox 36.6 C 79 18 124/81 H 94 02/26/17 08:00 02/26/17 08:00 02/26/17 08:00 02/26/17 08:56 02/26/17 08:00 Laboratory Results 02/17/17 13:30 02/17/17 13:30 02/25/17 02/26/17 02/27/17 05:59 05:59 05:59 Intake Total 1140 1200 Output Total 1000 575 Balance 140 625 PT 23.7 SEC (12.0-15.0) H 02/26/17 07:00 INR 2.11 (0.83-1.16) H 02/26/17 07:00 - Time Spent With Patient Time Spent With Patient: Greater than 35 min floor time today, including more than 50% of time in coordination of care during staffing meeting, and counseling patient and Physical Exam - Physical Exam General Appearance: WD/WN, alert, no apparent distress Respiratory: normal breath sounds, No crackles, No rhonchi, No wheezing Cardiac/Chest: regular rate, rhythm, No diastolic murmur, No systolic murmur Neuro/Psych: no motor/sensory deficits, alert, oriented x 3, depressed affect ICD10 Worksheet Patient Problems: Problems Problem Status Onset Acute leg pain Acute Cellulitis Acute Dehydration Acute Hypertension Acute Hypokalemia Acute Renal failure (ARF), acute on chronic Acute Anemia Chronic COPD (chronic obstructive pulmonary disease) Chronic 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
[2017-02-26] MEDS: WARFARIN SODIUM 5 MG TAB PO SCH (15:46)
[2017-02-26] MEDS: NIACIN ER 500 MG TAB.ER PO SCH (19:54)
[2017-02-27] MEDS: traMADol 50 MG TAB PO SCH ×3 (00:13→12:30)
[2017-02-27 08:05] LABS: INR 2.12 (0.83-1.16); PROTIME(PATIENT) 23.8 SEC (12.0-15.0)
[2017-02-27] MEDS: FERROUS SULFATE 325 MG TAB PO SCH (08:45)
[2017-02-27] MEDS: VENLAFAXINE XR 75 MG CAP PO SCH (08:45)
[2017-02-27] MEDS: FAMOTIDINE 20 MG TAB PO SCH (08:45)
[2017-02-27] MEDS: HYDROCHLOROTHIAZIDE 25 MG TAB PO SCH (08:45)
[2017-02-27] MEDS: buPROPion SR 150 MG TAB PO SCH (08:45)
[2017-02-27] MEDS: OMEGA-3 FATTY ACIDS 1,000 MG CAP PO SCH (08:45)
[2017-02-27] MEDS: TAMSULOSIN HCL 0.4 MG CAP PO SCH (08:45)
[2017-02-27] MEDS: GABAPENTIN 400 MG CAP PO SCH (08:45)
[2017-02-27] MEDS: ASPIRIN 81 MG CHEWABLE TAB PO SCH (08:45)
[2017-02-27 08:50] VITALS: BP 128/74
[2017-02-27 09:56] VITALS: PULSE 79; RESP 16; TEMP 97.5; O2SAT 0
--- NOTE | 2017-02-28 14:06 | GDS ---
[f rep st] DISCHARGE SUMMARY ADMITTING DIAGNOSIS: Debility status post left vgqug-qkm-fhzn amputation. DISCHARGE DIAGNOSIS: Debility status post left vhnwe-yrs-nlqg amputation. OTHER DISCHARGE DIAGNOSES: 1. Nonhealing ulcer dorsum of right foot. 2. Pulmonary embolus. 3. Hypertension. 4. Peripheral vascular disease. CONSULTATIONS: There were none. PROCEDURES: There were none. COMPLICATIONS: There were none. HISTORY AND HOSPITAL COURSE: This patient was admitted to [facility] from [facility]. He had had an elective kaemx-pzz-pluu amputation on 01/29/2017, for a chronically infected lower extremity wound. Hospital complications included acute kidney injury and dehydration. He also had surgical debridement of the chronic wound on the dorsum of the right foot, and he had maggot debridement as well. There was acute encephalopathy after the surgery which resolved. There were pulmonary emboli. He had additional bleeding while he was on IV heparin for the pulmonary emboli and required a transfusion. 1. He had gradual, but steady, improvement through his stay. His initial functional independence measure was 79 which is consistent with halfway level of function. He had improvement to a functional independence measure of 85 as of 02/26/17. This is consistent with assisted living level of function. He required standby assistance for slide board transfers, but was close to independent. He was independent propelling his wheelchair, but needed assistance on ramps. He could propel the wheelchair for 120 feet. He was unable to accomplish a car transfer into his van as the passenger seat was too high for him to be able to get into. He required set up for dressing and grooming and minimal assist to standby assist for toilet transfers. As he was unable to transfer into his vehicle and his burden of care was more than his could handle at home, discharge was arranged to the [facility] nursing facility where he will continue therapies toward a return to home. 2. Left nicgo-tzn-dcxh amputation. There was some dehiscence and erythema to the wound. There was an infectious disease consultation, and he was treated with 5 days of IV antibiotics. The condition of his wound improved. It is likely that the sutures could be removed; however, he should be seen by his surgeon, Dr. Newsome. He declined to pay for the cost of transport from inpatient rehabilitation to Dr. Newsome's office, and he was unable to make a car transfer for his to transport him. It is understood that [facility] has their own transportation and will be able to transport this patient to see Dr. Newsome. After treatment with IV antibiotics, the incision improved considerably. 3. Chronic right lower extremity ulcer on the dorsum of the foot. The eventual plan is a right xjbjb-hag-edtn amputation. During his stay the wound developed significant odor and necrosis. Wound treatment was changed from Silvadene to the wound covered with Allevyn foam dressing, to Dakin solution with wet-to-dry b.i.d. This was quite painful and he was premedicated with oxycodone. There was an attempt to use topical lidocaine, but this caused burning so it was not continued. With the use of Dakin solution, the condition of the wound improved considerably and he developed granulation tissue over perhaps 70% of the wound raising the possibility that he might be able to heal the wound and avoid a right lower extremity amputation. It is recommended that he have a consult with the underwriting specialist at [facility] and consider returning to the Dakin solution especially if the wound develops odor and slough and the granulation tissue does not continue to progress toward healing. 4. Anemia, status post blood transfusion in the hospital, was improving on labs that were drawn while he was at the inpatient rehabilitation facility. He was found to be iron deficient and put on iron supplementation. 5. Pulmonary embolus. He continued to use oxygen. He was initially treated with enoxaparin as well as warfarin. Once he was therapeutic on the warfarin, the enoxaparin was discontinued. 6. Osteoporosis with history of vertebral compression fracture. Alendronate was held per hospital protocol. He was continued on weekly ergocalciferol. The slendronate should be restarted if possible at [facility]. 7. A history of depression with episodes of low mood and passive suicidality. He was continued with bupropion and venlafaxine. He had an assessment per the social media developer and was not considered a suicide risk. He mostly was euthymic. DISCHARGE PHYSICAL EXAMINATION: GENERAL: This is a well-nourished, well- developed man sitting in his wheelchair cooperative and in no acute distress. VITAL SIGNS: Blood pressure is 128/74, heart rate is 79, respiratory rate is 16 , oxygen saturation is 91% on no oxygen and the previous evening was 95% on 2 L. Temperature is 36.4 degrees Centigrade. HEART: Regular rate and rhythm with no murmurs, rubs, or gallops. LUNGS: Clear to auscultation bilaterally. ABDOMEN : Benign. EXTREMITIES: There is a left lower extremity nzfzv-upb-lbso amputation. The wound is sutured. It is overall well approximated, but with some dehiscence especially medially there is minimal surrounding erythema which has improved over previous exams, and there is no drainage. The right lower extremity has approximately a 10 x 15 cm chronic wound over the dorsum of the foot. There is some grayish necrotic tissue bilaterally on the foot proximally. There is perhaps 50% to 70% of the wound with a development of granulation tissue. There is mild hyperemia and edema to the foot surrounding the wound. CONDITION UPON DISCHARGE: Fair. ACTIVITY: He needs supervision or assistance for transfers. He can be independent with wheelchair propulsion. DIET: Regular. DATE OF NEXT APPOINTMENT: He should see surgeon, Dr. Newsome, for examination of his surgical wound and possible suture removal. Appointment is set for March 01, 2017. DISCHARGE MEDICATIONS: 1. Ranitidine 150 mg p.o. b.i.d. 2. Niacin Extended Release 500 mg p.o. q.h.s. 3. Hydrochlorothiazide 12.5 mg p.o. q. day. 4. Venlafaxine XR 225 mg p.o. q. day. 5. Tamsulosin 0.8 mg p.o. q. day. 6. Gabapentin 800 mg p.o. t.i.d. 7. Fish oil 1200 mg 1 p.o. q. day. 8. Aspirin 81 mg p.o. q. day. 9. Bupropion 150 mg p.o. b.i.d. 10. Ferrous sulfate 325 mg p.o. q. day through 03/16/2017. 11. Ergocalciferol 50,000 units p.o. q. Sunday. 12. Alendronate 70 mg p.o. q. Sunday. 13. Tramadol 50 mg p.o. q. 6 hours scheduled and 50 mg p.o. q. 4 hours p.r.n. 14. Oxycodone 5-10 mg p.o. q. 4 hours p.r.n. to be offered prior to dressing changes on the right foot. 15. Warfarin 5 mg p.o. q. day. ISSUES TO BE ADDRESSED AT FOLLOWUP: 1. Functional status. Continue PT and OT with goal of increased independent function and ability to transfer into his van toward discharge home. 2. Status post left ptiof-pao-umdg amputation. After he sees Dr. Newsome and sutures are removed, he can begin using a stump social science professor toward eventual fitting with a prosthesis. 3. Right lower extremity chronic wound on dorsum of foot. This has surprising improvement. It had been assumed that this would not improve and will not heal and thus he will need an amputation of the right lower extremity below the knee as well. He should have a Wound Care consult at [facility]. Consider resumption of Dakin solution and b.i.d. dressing changes, though these caused quite a bit of pain, but everything that is possible should be done to encourage healing of this ulcer and avoidance of a right lower extremity amputation. 4. Pain control. He has chronic back pain. This has been effectively controlled with scheduled tramadol. 5. Peripheral vascular disease. Continue fish oil, niacin, and aspirin. 6. Hypertension has been well controlled. Continue tamsulosin. 7. Depression. Continue his antidepressants. 8. History of pulmonary embolus. Continue warfarin likely for 3-6 months. Duration can be decided upon followup with a primary care physician. 9. Iron deficiency anemia. Continue iron supplementation and advise. Recheck of CBC after 03/16/2017, when iron supplementation should be discontinued. Greater than 30 min floor time on this discharge, including medication reconciliation, coordination of care and counseling patient and . /[id number]/MODL [id number]
== END 2017-02-27 15:15 | DRG 561 ==
LOC: BREH 15:57
PROVIDERS: ADMIT Internal Medicine; ATTEND Internal Medicine
PROC: F07M3ZZ Motor Function Treatment of Musculoskeletal System - Whole Body (ICD-10-PCS; principal; 2017-02-15)
PROC: F08Z7ZZ Vocational Activities and Functional Community or Work Reintegration Skills Treatment (ICD-10-PCS; principal; 2017-02-15)
DX: Z47.81 Encounter for orthopedic aftercare following surgical amputation (principal); Z89.512 Acquired absence of left leg below knee; L97.529 Non-pressure chronic ulcer of other part of left foot with unspecified severity; R19.7 Diarrhea, unspecified; J44.9 Chronic obstructive pulmonary disease, unspecified; M51.36 Other intervertebral disc degeneration, lumbar region; N40.0 Benign prostatic hyperplasia without lower urinary tract symptoms; M81.0 Age-related osteoporosis without current pathological fracture; I10 Essential (primary) hypertension; Z96.643 Presence of artificial hip joint, bilateral; Z86.711 Personal history of pulmonary embolism
CPT/HCPCS: 97110-GO; 97110-GP; 97161-GP; 97166-GO; 97530-GO; 97530-GP; 97535-GO; 97542-GP; J0690; J1650

== ENCOUNTER 2017-07-15 14:44 | Emergency (ER) | payer OTHER ==
--- NOTE | 2017-07-15 15:32 | EDPHY ---
H & P Time Seen by Provider: 07/15/17 15:00 HPI/ROS: CHIEF COMPLAINT: Finger laceration HISTORY OF PRESENT ILLNESS: 77-year-old male presents emergency department laceration across the dorsum of his left index finger which occurred shortly prior to presentation. Patient was removing a pulled top lid off of a can when he lacerated his finger. No other injuries. He is on Coumadin. Bleeding is well controlled. REVIEW OF SYSTEMS: Aside from elements discussed in the HPI, a comprehensive 10-point review of systems was reviewed and is negative. PAST MEDICAL HISTORY: PE, peripheral vascular disease, left BKA SOCIAL HISTORY: Here with a family member. GENERAL APPEARANCE: Pleasant, alert, no acute distress. FOCUSED EXAM OF left hand: 2 cm laceration across the middle phalanx, dorsum, left index finger. Bleeding is well controlled. Normal flexion extension at the PIP and DIP joints. Brisk capillary refill. Normal two-point sensation. Neurovascular exam: Good capillary refill, normal motor exam, normal neurologic exam. Smoking Status: Current some day smoker Constitutional: Initial Vital Signs Temperature (C) 37.1 C 07/15/17 14:58 Heart Rate 74 07/15/17 14:58 Respiratory Rate 20 07/15/17 14:58 Blood Pressure 163/96 H 07/15/17 14:58 O2 Sat (%) 93 07/15/17 14:58 O2 Delivery Mode Room Air Allergies/Adverse Reactions: amoxicillin trihydrate [From Augmentin] Allergy (Intermediate, Verified 15:01) Itching potassium clavulanate [From Augmentin] Allergy (Intermediate, Verified 07/15/17 15:01) Itching guaifenesin Allergy (Unknown, Verified 07/15/17 15:01) Vomiting amoxicillin trihydrate Allergy (Unknown, Uncoded 07/15/17 15:01) Itching potassium clavulanate Allergy (Unknown, Uncoded 07/15/17 15:01) Itching Home Medications: Medication Instructions Recorded Alendronate Sodium [Fosamax 70 MG 70 mg PO PRYOR@0700 10/27/15 (*)] Aspirin [Aspirin 81mg (*)] 81 mg PO DAILY 10/27/15 Ergocalciferol [Vitamin D2 (*)] 50,000 unit PO PYROR@0700 10/27/15 Hydrochlorothiazide [HCTZ (*)] 12.5 mg PO DAILY 10/27/15 Niacin ER [Niaspan 500 mg (*)] 500 mg PO HS 10/27/15 Ranitidine HCl [Zantac] 150 mg PO BID 10/27/15 buPROPion SR [Wellbutrin 150mg SR 150 mg PO BID 10/10/16 (*)] Fish Oil/Dha/Epa [Fish Oil 1,200 1 each PO DAILY 01/29/17 mg Fish Oil] Gabapentin [Gabapentin 800 mg] 800 mg PO TID 01/29/17 Tamsulosin HCl [Flomax 0.4 MG (*)] 0.8 mg PO DAILY 01/29/17 Venlafaxine Xr [Effexor Xr 75MG 225 mg PO DAILY 01/29/17 (*)] Ferrous Sulfate [Ferrous Sulf 325 325 mg PO PRYOR@0900 #0 02/26/17 MG (*)] Warfarin Sodium [Coumadin 5MG (*)] 5 mg PO DAILY16 tab 02/26/17 Potassium Chloride 07/15/17 Verapamil 07/15/17 Medical Decision Making ED Course/Re-evaluation: Options were discussed with the patient. These included anesthetic with suturing, stay there is trips, or skin glue. Patient has opted for sutures. Procedure: Laceration repair. The 2 cm laceration on the dorsum, left index finger, over middle phalanx was anesthetized using lidocaine without epinephrine The wound was cleaned and irrigated per nursing and tech documentation. Laceration was then draped and explored. There were no deep structures involved. No tendon injury was identified. The wound was repaired with #5, 5-0 Ethilon. The wound repair was simple. The procedure was performed by myself. Patient is aware the laceration will have a scar. Differential Diagnosis: Differential diagnosis for the patient's injury was considered including but not limited to contusion, abrasion, laceration, fracture, open fracture, or dislocation. Departure - Departure Disposition: Home, Routine, Self-Care Clinical Impression: Laceration Condition: Good Instructions: Finger Laceration (ED) Additional Instructions: Keep wound clean and dry. Clean suture line with a mixture of hydrogen peroxide and water. Apply a thin layer of antibiotic cream. Dress wound if desired. Suture removal in 10 days. Watch for signs of infection. No soaking wound in water. Showers are ok. No swimming until sutures are removed. Use ibuprofen or Tylenol as needed for pain. Return to emergency department if any concerns regarding infection. [Followup with your primary care physician if you have any questions or concerns. Referrals: Viv Crowell MD [Primary Care Provider] - As per Instructions
[2017-07-15 16:06] VITALS: BP 129/84
== END 2017-07-15 16:10 | disposition home or self-care (01) ==
LOC: CED 14:44
PROC: 0HQGXZZ Repair Left Hand Skin, External Approach (ICD-10-PCS; principal; 2017-07-15)
DX: S61.211A Laceration without foreign body of left index finger without damage to nail, initial encounter (principal); F17.200 Nicotine dependence, unspecified, uncomplicated; Z79.01 Long term (current) use of anticoagulants; Z79.82 Long term (current) use of aspirin; W26.8XXA Contact with other sharp object(s), not elsewhere classified, initial encounter

== ENCOUNTER 2018-07-14 23:19 | Emergency (ER) | payer OTHER ==
--- NOTE | 2018-07-14 23:20 | EDPHY ---
H & P Stated Complaint: Right flank pain Time Seen by Provider: 07/14/18 23:19 HPI/ROS: CHIEF COMPLAINT: Right flank pain HISTORY OF PRESENT ILLNESS: This is an 78-year-old complex medical patient. He has known kidney stones as well as vascular disease with prior left BKA as well as known abdominal aortic aneurysm with prior stenting back in 2013 as well as SFA stenosis. He is here for right flank pain. This started around 10:00 a.m. Tonight as he was watching TV. He usually stays up that late in the 1st place. It was quite severe at home and has somewhat improved. While at home he did not have diaphoresis but he certainly had nausea but no vomiting. The pain itself started the right flank and has remained there. He now would described at this time as being moderate having improved to the point of his triage. At home he was able to take Tylenol p. O. For this discomfort. He did not have anything stronger. Of note is that approximately 10 days ago he is admitted to [facility] for right flank pain and found to have renal colic with kidney stone. I have not been able to review these records at this point in time. Interestingly, at that time he presented with INR 6 as well as black stools. He had an EGD and was told that he was bleeding from his duodenum and was given 3 units of blood. Further, as he had had prior history of PEs, he was at that time on Coumadin but with the INR 6 it was stopped. He does not recall if he had any transfusions of fresh frozen plasma or vitamin K P: Pain is in the right flank but it is not worse with movement or breathing. He did note his urine was quite dark and was suspicious for blood Q: An achy type quality R: No radiation to the groin S: Moderately severe at home, at this point in time is moderate T: Began approximately hour and 15 min prior to admission REVIEW OF SYSTEMS: Constitutional: No fever, no chills. Eyes: No discharge ENT: No sore throat. Cardiovascular: No chest pain, no palpitations. Respiratory: No cough, shortness of breath, or wheezing. Gastrointestinal: See above Genitourinary: No hematuria or frequency. Musculoskeletal: No back pain. Skin: No rashes. Neurological: No headache. A 10 system review of systems was performed and is negative except for the noted findings in the HPI. Source: Patient Exam Limitations: No limitations - Medical/Surgical History Hx Asthma: No Hx Chronic Respiratory Disease: Yes Hx Diabetes: No Hx Cardiac Disease: Yes Hx Renal Disease: No Hx Cirrhosis: No Hx Alcoholism: No Hx HIV/AIDS: No Hx Splenectomy or Spleen Trauma: No Other PMH: 1. Skin graft with wound VAC to left lower extremity on November. 2. 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 4. 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 5. Peripheral neuropathy. 6. Avascular necrosis of left hip. 7. Chronic hypoxemic respiratory failure on 2 L nasal cannula oxygen @ night. 8. COPD. 9. History of left wrist fracture. 10. Lumbar fusion. 11. Right carotid endarterectomy. 12. Bilateral total hip arthroplasties - Social History Smoking Status: Current some day smoker Alcohol Use: None Drug Use: None - Physical Exam Exam: General Appearance: Alert, no distress. Afebrile. Normal phonation. No respiratory distress. His skin is warm dry. He appears pale but per his spouse he is always that way Eyes: Pupils equal and round no injection. No icterus ENT, Mouth: Mucous membranes slightly dry Pharynx without erythema or exudate. TM Clear. Neck: No adenopathy. Supple. No JVD. Trachea in midline. Respiratory: There are no retractions, lungs are clear to auscultation. Cardiovascular: Regular rate and rhythm, no murmur Abdomen: Soft and nontender, no masses, bowel sounds normal. Femoral pulses equal. Neurological: Ox3. No motor weakness. Sensation intact. Gait nl. Skin: Warm and dry, no rashes. Musculoskeletal: No joint swelling. Extremities: No edema, on the right leg. Psychiatric: Normal affect. Patient is oriented X 3. There is no agitation Constitutional: Initial Vital Signs Temperature (C) 36.5 C 07/14/18 23:26 Heart Rate 83 07/14/18 23:26 Respiratory Rate 16 07/14/18 23:26 Blood Pressure 142/82 H 07/14/18 23:26 O2 Sat (%) 93 07/14/18 23:26 O2 Delivery Mode Room Air O2 (L/minute) 2 Allergies/Adverse Reactions: amoxicillin trihydrate [From Augmentin] Allergy (Intermediate, Verified 23:22) Itching potassium clavulanate [From Augmentin] Allergy (Intermediate, Verified 07/14/18 23:22) Itching guaifenesin Allergy (Unknown, Verified 07/14/18 23:22) Vomiting amoxicillin trihydrate Allergy (Unknown, Uncoded 07/14/18 23:22) Itching potassium clavulanate Allergy (Unknown, Uncoded 07/14/18 23:22) Itching Home Medications: Medication Instructions Recorded Alendronate Sodium 07/14/18 Aspirin [Aspirin 81mg (*)] 07/14/18 Atorvastatin Calcium [Lipitor 20 07/14/18 mg (*)] B Cmplx 4/Vit D3/C/Folic/Zinc 07/14/18 [Vital-D Rx Tablet] Ferrous Sulfate, Dried [Iron] 07/14/18 Gabapentin [Gabapentin 800 mg] 07/14/18 [place]-3S/Dha/Epa/Fish Oil [Fish 07/14/18 Oil 1,200 mg Softgel] Pantoprazole Sodium [Protonix 40mg 07/14/18 (*)] Tamsulosin HCl [Flomax 0.4 MG (*)] 07/14/18 Tamsulosin HCl [Flomax 0.4 MG (*)] 07/14/18 Verapamil ER [[place] SR/ER 120MG 07/14/18 (*)] Medical Decision Making ED Course/Re-evaluation: Laboratory request roommate. He was also attempted to have a PT INR at the bedside however machine would not work. IV is established and he was started with normal saline at 250 cc/hour. Hemodynamically stable. Laboratory studies included the following: Normal WBC Slightly low hemoglobin of 11 Preserved renal function of a creatinine 1.3 Normal LFTs although a little low and ALT at 19 Normal electrolytes Urinalysis was positive for 3+ blood Urinalysis negative for leukocytes as well as nitrites CT scan results are pending. On my read I do not see any intra-abdominal fluid. There is a suggestion of right renal collecting system distension however given the bilateral femoral prosthesis the area of the bladder is obscured by shadowing. Thus there is no definitive stone noted to be seen. The hardware in the aorta appears to be intact however of note is that this is without contrast. The official reading came back as showing a right UVJ stone of 2 mm with hydronephrosis of a mild degree. In the report they are ready other findings including, as they did not have access to the prior CT's: - Right renal lesion of indeterminate quality, comparison necessary. - Distal descending colon diverticulum which clinically does not show any signs of diverticulitis - 9 mm left lower lobe pulmonary nodule recommending follow-up CT however this may in fact be seen on prior and that has yet to be compared to. The patient was given a titration of fentanyl at 25 with repeat. The 1st dose worked somewhat however, Ultimately a good 0.5 hr after last dose his pain was essentially completely gone. He felt he could manage at home. We did a transfer test here to be sure that he was stable on his feet indeed he was. I urine cultures been asked for. I asked the family to follow up with his PCP regarding the other findings on the CT to see if there is any final recommendations for no additional studies. This will occur later this week. They are currently scheduled in 6 days time however they were probably move that up with a call in tomorrow. For pain management going forward I am reticent given his age and his status post prosthesis of the left leg to give him anything stronger than say half a tablet of Vicodin at every 6 hr. He concurs with that. Evidently at the time of his last surgery in 2017 he was taking some pain pills but the really do not know how many at anyone time. Of course, given his recent upper GI bleed we would stay away from any anti-inflammatories at this time including Advil. He is allowed to take Tylenol or the Vicodin for the pain. Differential Diagnosis: Differential diagnosis includes, but is not limited to: Gastroenteritis, diverticulitis, hepatitis, pancreatitis, renal colic, pyelonephritis, kidney stones, ureterolithiasis, cholecystitis, appendicitis, gastritis, mesenteric adenitis, aortic aneurysm with leakage, aortic dissection. - Data Points Medications Given: Discontinued Medications Hydrocodone Bitart/Acetaminophen ([place] 5/325mg Prepack#6) 1 btl TAKEHOME EDNOW ONE Stop: 07/15/18 01:28 Last Admin: 07/15/18 01:31 Dose: 1 btl Fentanyl (Sublimaze) 25 mcg IVP EDNOW ONE Stop: 07/14/18 23:46 Last Admin: 07/14/18 23:53 Dose: 25 mcg Fentanyl (Sublimaze) 25 mcg IVP EDNOW ONE Stop: 07/15/18 00:34 Last Admin: 07/15/18 00:36 Dose: 25 mcg Sodium Chloride (Ns) 1,000 mls @ 0 mls/hr IV EDNOW ONE; As Directed PRN Reason: Protocol Stop: 07/14/18 23:46 Last Admin: 07/14/18 23:53 Dose: 1,000 mls Point of Care Test Results: CBC CBC Collection Date 07/14/18 CBC Collection Time 23:35 WBC 6.22 RBC 3.71 HGB 11.1 HCT 36.1 PLT 241 Neut # 2.97 Neut 47.8 LYMPH # 2.13 LYMPH 34.2 MCV 97.3 Chemistry 07/14/18 23:38 POC Sodium 143 mEq/L mEq/L (135-145) POC Potassium 3.7 mEq/L mEq/L (3.3-5.0) POC Chloride 113.0 mEq/L H mEq/L (97-110) POC Total CO2 25 mEq/L mEq/L (22-31) POC BUN 13 mg/dL mg/dL (7-23) POC Creatinine 1.3 mg/dL mg/dL (0.7-1.3) POC Glucose 92 mg/dL mg/dL (70-100) POC Calcium 9.3 mg/dL mg/dL (8.5-10.4) POC Total Bilirubin 0.5 mg/dL mg/dL (0.1-1.4) POC AST 24 IU/L IU/L (17-59) POC ALT 16 IU/L L IU/L (21-72) POC Alk Phosphatase 62 IU/L IU/L (38-126) POC Total Protein 6.4 g/dL g/dL (6.3-8.2) POC Albumin 3.6 g/dL g/dL (3.5-5.0) Urine Dip Collection Date 07/14/18 Collection Time 23:50 Specific [place] (1.002-1.030) 1.030 PH (5.0-7.5) 6.0 Leukocytes (Negative) Negative Nitrites (Negative) Negative Protein (Negative) 2+ Glucose (Negative) Negative Ketones (Negative) Trace Urobilnogen (0.2-1.0 EU) 1.0 Bilirubin (Negative) Negative Blood (Negative) 3+ Departure - Departure Disposition: Home, Routine, Self-Care Clinical Impression: Renal colic on right side Condition: Good Instructions: Kidney Stones (ED), Renal Colic (ED) Additional Instructions: We are sending her home because you're feeling okay in the pain is really diminished. If need be go ahead and take half of pain pill to control the pain. However do not take any more than that. If he feel need to more pain medicine than that, then come here to the hospital again Also, if you develop fevers or chills or pain with burning of urine, return to the hospital again Strain urine and through seine that we sent home with you See your doctor in 1-3 days. Referrals: Patient,NotPresent [Primary Care Provider] - As per Instructions Viv Crowell MD [Medical Doctor] - As per Instructions
[2018-07-14] MEDS ORDERED: NS 1,000 ML IV ONE (23:45)
[2018-07-14] MEDS ORDERED: fentaNYL 100 MCG/2 ML INJ IVP ONE (23:45)
[2018-07-14] MEDS ORDERED: fentaNYL 100 MCG/2 ML INJ ONE (23:48)
[2018-07-15] MEDS ORDERED: fentaNYL 100 MCG/2 ML INJ IVP ONE (00:33)
[2018-07-15] MEDS ORDERED: HYDROCOD/APAP 5/325 PREPACK#6 BTL TAKEHOME ONE (01:27)
[2018-07-15 01:36] VITALS: BP 137/76
== END 2018-07-15 01:36 | disposition home or self-care (01) ==
LOC: CED 23:19
DX: N20.0 Calculus of kidney (principal); E86.9 Volume depletion, unspecified; I25.10 Atherosclerotic heart disease of native coronary artery without angina pectoris; N40.1 Benign prostatic hyperplasia with lower urinary tract symptoms; J44.9 Chronic obstructive pulmonary disease, unspecified; E78.5 Hyperlipidemia, unspecified; I10 Essential (primary) hypertension; I25.2 Old myocardial infarction; Z86.711 Personal history of pulmonary embolism; Z86.73 Personal history of transient ischemic attack (TIA), and cerebral infarction without residual deficits; Z99.81 Dependence on supplemental oxygen
CPT/HCPCS: 74176; 96361; 96374; 96376; 99285; J3010; 80053-ER; 85025-QW-ER

== ENCOUNTER 2018-08-22 12:07 | Emergency (ER) | payer OTHER | END 2018-08-22 13:57 | disposition home or self-care (01) | LOC: CED 12:07 ==